=== PATIENT | male | born 1955 | race Caucasian/White ===

== ENCOUNTER 2019-09-13 10:31 | Outpatient (CLI) | payer MEDICARE, SELFPAY ==
--- NOTE | ~2019-09-13 | MR_ITS ---
EXAMINATION: MR lumbar spine wo con EXAM DATE: 09/13/2019 11:36 INDICATION: Bilateral leg pain, low back pain. TECHNIQUE: Multi-sequential, multiplanar MR images of the lumbar spine were obtained without contrast . Sagittal T1, T2, T2 fat saturation images. Axial T2 weighted images. Comparison is made to prior examination from 01/13/2019. FINDINGS: Mild disc disease at L3-4, moderate at the other lumbar levels. There is 3 mm retrolisthesi s L2 on L3. There is 4 mm retrolisthesis L5 on S1. The conus medullaris terminates at the L1/2 level and has normal signal intensity and morphology. Mild diffuse loss of vertebral body heights. Small e ndplate Schmorl's nodes. Paraspinal soft tissue is unremarkable. Level by level evaluation: T12-L1: Small right central protrusion. Facet arthropathy: Mild. Neural foraminal stenosis: No stenosis. Central canal stenosis: No stenosis. L1-L2: There is a mild diffuse disc bulge. Facet arthropathy: Mild. Neural foraminal stenosis: No stenosis. Central canal stenosis: No stenosis. L2-L3: There is a mild to moderate diffuse disc bulge. Facet arthropathy: Mild to moderate. Neural foraminal stenosis: Mild bilateral. Central canal stenosis: Mild. L3-L4: There is a mild diffuse disc bulge. Facet arthropathy: Mild to moderate. Neural foraminal stenosis: Mild to moderate left, mild right. Central canal stenosis: Mild. L4-L5: There is a mild to moderate diffuse disc bulge. Facet arthropathy: Mild to moderate. Neural foraminal stenosis: Mild to moderate bilateral. Central canal stenosis: Mild. L5-S1: There is a mild to moderate diffuse disc bulge. Facet arthropathy: Mild. Neural foraminal stenosis: Mild right. Central canal stenosis: Mild. Difficult to appreciate significant interval change in these findings compared to 2019. IMPRESSION: 1. Overall moderate lumbar spondylosis unchanged. Reviewed, dictated and finalized at location A.
== END 2019-09-13 10:32 | disposition home or self-care (01) ==
PROVIDERS: PCP Family Medicine; Visit Provider Nurse Practitioner Family
DX: M47.897 Other spondylosis, lumbosacral region (principal); M47.816 Spondylosis without myelopathy or radiculopathy, lumbar region
CPT/HCPCS: 72148

== ENCOUNTER 2020-09-24 17:09 | Emergency (ER) | payer MEDICARE, SELFPAY ==
--- NOTE | ~2020-09-24 | CT_ITS ---
EXAMINATION: CT brain wo con DATE: 09/24/2020 21:04 INDICATION: Dizziness TECHNIQUE: Computed tomography (CT) of the head was performed without intravenous contrast. The dose- length product was 605.33 mGy-cm. Automated exposure control and iterative reconstruction technique w ere employed. COMPARISON: MRI dated 08/31/2018 FINDINGS: Mild generalized atrophy. There are scattered mild periventricular and subcortical white ma tter changes, most likely related to small vessel ischemic disease (microangiopathy). No ventriculome rich or midline shift. Basilar cisterns are patent. No acute intracranial hemorrhage, infarction, mas s or mass effect. Mild mucosal thickening of the right sphenoid sinus. Mastoids are pneumatized. No d epressed skull fractures. Midline sagittal images are unremarkable. IMPRESSION: 1. No acute intracranial abnormality. 2: Chronic age-related findings. Reviewed, dictated and finalized at location A.
[2020-09-24 18:21] VITALS: BP 144/84; PULSE 63; RESP 15; TEMP 36.3; O2SAT 98
--- NOTE | 2020-09-24 18:30 | ECG_ITS ---
Measurements Intervals Ashley Rate: 55 P: 34 AL: 172 QRS: 3 QRSD: 96 T: 30 QT: 443 QTc: 424 Interpretive Statements SINUS BRADYCARDIA BORDERLINE ECG Electronically Signed On 09-25-2020 6:55:31 CDT by Michael Aguayo D.O.
[2020-09-24 18:40] LABS: Basophils Absolute Auto 0.1 K/mm3 (0.0-0.1); Basophils Percent Auto 0.5 % (0.2-1.2); Eosinophils Absolute Auto 0.2 K/mm3 (0-0.3); Hematocrit 45.3 % (42.0-52.0); Hemoglobin 15.6 g/dL (14.0-18.0); Immature Granulocyte Absolute 0.05 K/mm3 (0.00-0.031); Immature Granulocyte Percent A 0.4 % (0-0.5); Lymphocytes Percent Auto 12.2 % (18.3-44.2); Mean Corpuscular HGB Conc 34.4 g/dl (32-36); Mean Corpuscular Hemoglobin 29.4 pg (26-34); Mean Corpuscular Volume 85.5 fl (80-100); Mean Platelet Volume 9.1 fl (7.4-10.4); Monocytes Absolute Auto 0.7 K/mm3 (0.1-0.6); Monocytes Percent Auto 6.3 % (2.6-8.5); Neutrophils Percent Auto 78.6 % (45.5-73.1); Platelet Count Result 213 k/mm3 (150-375); Red Cell Distribution Width 13.1 % (11.5-14.5); White Blood Count 11.5 K/mm3 (4.5-10.0)
[2020-09-24 18:51] LABS: Alanine Aminotransferase 43 U/L (4-50); Alkaline Phosphatase 65 U/L (38-126); Anion Gap 8 mmol/L (8-16); Aspartate Amino Transferase 39 U/L (17-59); Bilirubin,Total 0.7 mg/dL (0.2-1.3); Blood Urea Nitrogen 17 mg/dL (9-20); Calcium 9.2 mg/dL (8.4-10.2); Carbon Dioxide 27 mmol/L (22-30); Chloride 106 mmol/L (98-107); Estimated CRCL calculation 75 ml/min; Estimated Glomerular Filt Rate > 60; Glucose 104 mg/dL (75-110); Potassium 3.6 mmol/L (3.4-5.0); Sodium 141 mmol/L (137-145)
--- NOTE | 2020-09-24 20:52 | ED.DIZZY ---
HPI - Dizziness General Chief Complaint: Dizziness Stated Complaint: Dizzy/Vomiting Time Seen by Provider: 09/24/20 20:38 Source: patient Mode of arrival: ambulatory Limitations: no limitations History of Present Illness HPI Narrative: Patient is a 65-year-old male sent here by his PCP after having an episode of lightheadedness accompanied by nausea that lasted for approximately 45 minutes to an hour and now resolved. Patient states that he was working outside and possibly just got dehydrated because it was hot outside. states that his blood pressure at the clinic was in the 160s over 110s. Patient currently has no complaints at this time, states that he is feeling better and ready to go home. Denies any headache, speech or visual disturbance, chest pain, shortness of breath, abdominal pain, nausea, vomiting, diarrhea, fever or chills. Related Data Home Medications Medication Instructions Recorded Confirmed aspirin 325 mg tablet 325 mg PO DAILY 06/23/19 09/24/20 levothyroxine 150 mcg tablet 150 mcg PO DAILY tablet 09/24/20 09/24/20 metoprolol succinate 25 mg 25 mg PO DAILY tablet 09/24/20 09/24/20 tablet,extended release 24 hr sertraline 25 mg tablet 25 mg PO DAILY tablet 09/24/20 09/24/20 simvastatin 10 mg tablet 10 mg PO QHS tablet 09/24/20 09/24/20 Allergies Allergy/AdvReac Type Severity Reaction Status Date / Time WASP STINGS Allergy Severe SWELLING Uncoded 09/24/20 16:33 AND ITCHING Review of Systems Review of Systems: All systems reviewed & are unremarkable except as noted in HPI and below Constitutional: Constitutional: Denies body ache(s), Denies chills, Denies excessive sweating, Denies fatigue, Denies fever(s), Denies headache(s), Denies lethargy, Denies malaise, Denies weakness and Denies weight loss Eyes: Eyes: Denies blurry vision, Denies change in vision and Denies loss of vision ENT: Denies dizziness, Denies ear discharge, Denies headache(s), Denies lip swelling, Denies epistaxis, Denies nasal congestion, Denies neck pain, Denies throat swelling and Denies tongue swelling Cardiovascular: Cardiovascular: Denies chest pain, Denies chest pain at rest, Denies chest pain with activity, Denies diaphoresis, Denies rapid heart rate, Denies edema, Denies irregular heart rhythm, Denies lightheadedness, Denies palpitations, Denies dyspnea and Denies dyspnea on exertion Respiratory: Respiratory: Denies chest congestion, Denies cough, Denies hemoptysis, Denies dyspnea and Denies dyspnea on exertion Gastrointestinal: Gastrointestinal: Denies abdominal pain, Denies melena, Denies hematochezia, Denies diarrhea, Denies vomiting and Denies hematemesis Musculoskeletal: Musculoskeletal: Denies abnormal gait, Denies deformity, Denies joint swelling, Denies limited range of motion, Denies neck pain and Denies numbness Neurologic: Denies Abnormal speech present, Denies abnormal gait, Denies confusion, Denies headache(s), Denies focal weakness, Denies loss of vision, Denies numbness, Denies Other visual disturbances, Denies Sensory deficit (Neuro) and Denies weakness Psychiatric: Psychiatric: Denies confusion, Denies depression, Denies auditory hallucinations, Denies homicidal ideation and Denies suicidal ideation Endocrine: Endocrine: Denies cold intolerance, Denies excessive sweating, Denies fatigue, Denies heat intolerance and Denies palpitations Hematologic/Lymphatic: Hematologic/Lymphatic: Denies easy bleeding and Denies easy bruising Allergic/Immunologic: Allergic/Immunologic: Denies lip swelling, Denies throat swelling and Denies tongue swelling PMFSH Past Medical History Medical History Benign prostatic hyperplasia Chronic obstructive pulmonary disease, unspecified DDD (degenerative disc disease), lumbar Dyslipidemia Esophageal dilatation 2018 Essential (primary) hypertension Gastro-esophageal reflux disease without esophagitis Hypothyroidism, uns
[2020-09-24] MEDS: SODIUM CHLORIDE 0.9% IV 1,000 ML 999 ML IV CONT (20:54)
[2020-09-24 21:01] VITALS: BP 152/76; PULSE 98; RESP 17; O2SAT 100
[2020-09-24 21:53] VITALS: BP 156/96; PULSE 68; RESP 17; O2SAT 97
[2020-09-24 22:10] LABS: Creatine Kinase 122 U/L (55-170)
[2020-09-24 22:23] LABS: Troponin I < 0.012 ng/mL (0.000-0.034)
[2020-09-24 22:47] VITALS: BP 160/90; PULSE 88; RESP 20; O2SAT 99
== END 2020-09-24 22:50 | disposition home or self-care (01) ==
PROVIDERS: Emergency Medicine; Emergency Provider Emergency Medicine; PCP Family Medicine
DX: R42 Dizziness and giddiness (principal); I10 Essential (primary) hypertension; N40.0 Benign prostatic hyperplasia without lower urinary tract symptoms; F01.50 Vascular dementia, unspecified severity, without behavioral disturbance, psychotic disturbance, mood disturbance, and anxiety; J44.9 Chronic obstructive pulmonary disease, unspecified; E78.5 Hyperlipidemia, unspecified; E03.9 Hypothyroidism, unspecified; K21.9 Gastro-esophageal reflux disease without esophagitis; Z79.82 Long term (current) use of aspirin; F17.290 Nicotine dependence, other tobacco product, uncomplicated; R00.1 Bradycardia, unspecified
CPT/HCPCS: 36415; 70450; 80053; 82550; 84484; 85025; 93005; 96360; 99284; J7030

== ENCOUNTER 2020-10-22 15:12 | Emergency (ER) | payer MEDICARE, SELFPAY ==
--- NOTE | ~2020-10-22 | XR_ITS ---
EXAMINATION: XR knee RT min 4V DATE: 10/22/2020 15:46 INDICATION: Right knee pain. TECHNIQUE: 4 views of right knee were obtained. COMPARISON: None. FINDINGS: Bone alignment is normal. No fracture. There is mild tricompartmental osteoarthritis charac terized by tiny marginal osteophytes. No knee joint effusion. IMPRESSION: 1. Mild right knee osteoarthritis. Reviewed, dictated and finalized at location A.
--- NOTE | 2020-10-22 15:19 | ED.LOWEXIN ---
HPI - Extremity Injury (Lower) General Chief Complaint: Extremity Injury, Lower Stated Complaint: rt foot/leg injury Source: patient and RN notes reviewed Mode of arrival: ambulatory History of Present Illness HPI Narrative: This is a 65-year-old male that presented to urgent care that notes that his left knee gave out while getting out of his automobile. Patient does have a history of spinal abnormalities. Patient describes his pain as a sharp throbbing pain to his left leg starting from his hip to his foot. The patient denies SOB, CP, palpitation, extremity numbness, lightheadedness, dizziness, constipation, diarrhea, chills, or fever. Patient positive for straight leg test. No tenderness noted to his back no abnormalities in curvature or limited range of motion to his lower back. Patient does have full range of motion with pain to his right leg no edema or erythema noted. Patient requesting x-ray of his right knee. MD complaint: leg injury (right) Related Data Home Medications Medication Instructions Recorded Confirmed aspirin 325 mg tablet 325 mg PO DAILY 06/23/19 09/26/20 levothyroxine 150 mcg tablet 150 mcg PO DAILY tablet 09/24/20 09/26/20 metoprolol succinate 25 mg 25 mg PO DAILY tablet 09/24/20 09/26/20 tablet,extended release 24 hr simvastatin 10 mg tablet 10 mg PO QHS tablet 09/24/20 09/26/20 Allergies Allergy/AdvReac Type Severity Reaction Status Date / Time WASP STINGS Allergy Severe SWELLING Uncoded 09/26/20 09:37 AND ITCHING Review of Systems Review of Systems: Narrative: A 14 organ system Review of Systems was performed and pertinent positives included in the HPI, otherwise remaining ROS is negative. [facility] Past Medical History Medical History Benign prostatic hyperplasia Chronic obstructive pulmonary disease, unspecified DDD (degenerative disc disease), lumbar Dyslipidemia Esophageal dilatation 2018 Essential (primary) hypertension Gastro-esophageal reflux disease without esophagitis Hypothyroidism, unspecified Low back pain at multiple sites Nicotine use disorder Smoking greater than 40 pack years Tonsillectomy planned 1959 Vascular dementia without behavioral disturbance Surgical History Surgical History H/O hernia repair 1989 Hx of tonsillectomy (Unknown) Social History Social History Smoking packs per day: 2 Smoking cigarettes per day: 40.0 Years smoked: 50 Smoking pack-years: 100.00 Smoking status: Heavy tobacco smoker Second hand tobacco smoke exposure: No Alcohol intake: current Substance use: never Additional occupation/education comments: disabled Gender identity (if verbalized by the patient): Male Exam Narrative: Exam Narrative: GENERAL: This is a well-nourished, well-developed patient, in no apparent distress. HEAD: normocephalic, atraumatic. EYES: PERRL. Sclera clear/white. Vision is grossly intact. EARS: External ears normal, auditory canals clear and without drainage, TMs normal without perforation. Hearing grossly intact. NOSE: External nose normal with no obvious nasal discharge, nares without redness, no rhinorrhea. THROAT: Mucous membranes moist, posterior pharynx clear. NECK: Neck supple, non-tender without lymphadenopathy, masses or thyromegaly. CARDIOVASCULAR: Regular rate and rhythm without murmurs, gallops, or rubs. RESPIRATORY: Clear to auscultation. Breath sounds equal bilaterally. No wheezes, rales, or rhonchi. GASTROINTESTINAL: Abdomen soft, non-tender, nondistended. Bowel sounds are active. No hepato-splenomegaly, or palpable masses. No guarding. SKIN: warm, intact with no suspicious lesions or rash, good texture and turgor. NEURO: awake, alert, and oriented to person, place and time. There were no obvious focal neurologic abnormalities. Steady gait EXTREMIT
[2020-10-22 15:20] VITALS: BP 131/79; PULSE 83; RESP 20; TEMP 36.5; O2SAT 98
== END 2020-10-22 15:59 | disposition home or self-care (01) ==
PROVIDERS: Emergency Provider Nurse Practitioner; PCP Family Medicine
DX: S83.8X2A Sprain of other specified parts of left knee, initial encounter (principal); S86.812A Strain of other muscle(s) and tendon(s) at lower leg level, left leg, initial encounter; W19.XXXA Unspecified fall, initial encounter; R29.90 Unspecified symptoms and signs involving the nervous system; M51.36 Other intervertebral disc degeneration, lumbar region; F17.210 Nicotine dependence, cigarettes, uncomplicated; J44.9 Chronic obstructive pulmonary disease, unspecified; E78.5 Hyperlipidemia, unspecified; I10 Essential (primary) hypertension; K21.9 Gastro-esophageal reflux disease without esophagitis; E03.9 Hypothyroidism, unspecified
CPT/HCPCS: 73564; 99213; G0463

== ENCOUNTER 2020-11-30 17:30 | Emergency (ER) | payer MEDICARE, SELFPAY ==
[2020-11-30 17:34] VITALS: BP 122/80; PULSE 82; RESP 16; TEMP 36.7; O2SAT 97
--- NOTE | 2020-11-30 17:35 | ED.SKABFB ---
HPI - Skin/Abscess/Foreign Bdy General Chief complaint: Wound/Laceration Stated complaint: puncture wounds to hands Source: patient and RN notes reviewed Limitations: no limitations History of Present Illness HPI narrative: The patient, a smoker/drinker who is on several medications, presents with puncture wound. Patient states he was fishing today and sustained a few small puncture wounds probably from a catfish; he is uncertain of his tetanus status. Patient is concerned he might get fin poisoning ; no redness,, significant swelling, pain, discharge from the affected site on his left thumb, right finger. Related Data Home Medications Medication Instructions Recorded Confirmed aspirin 325 mg tablet 325 mg PO DAILY 06/23/19 09/26/20 metoprolol succinate 25 mg 25 mg PO DAILY tablet 09/24/20 09/26/20 tablet,extended release 24 hr Allergies Allergy/AdvReac Type Severity Reaction Status Date / Time WASP STINGS Allergy Severe SWELLING Uncoded 09/26/20 09:37 AND ITCHING Review of Systems Review of Systems: General/Constitutional: No weight loss,fever Eyes: N0: Redness,discharge Ears/Nose/Throat: No: Epistaxis,ear discharge Respiratory: Denies: Hemoptysis Gastrointestinal: No Vomiting, Bleeding-rectal Skin: No Lumps, eruption Neurologic: No Focal Weakness,Sz Hematologic: Denies: Petechiae/Purpura Psychiatric: No: Suicida ideationl All Other Systems: Reviewed and Negative [facility] Past Medical History Medical History Benign prostatic hyperplasia Chronic obstructive pulmonary disease, unspecified DDD (degenerative disc disease), lumbar Dyslipidemia Esophageal dilatation 2018 Essential (primary) hypertension Gastro-esophageal reflux disease without esophagitis Hypothyroidism, unspecified Low back pain at multiple sites Nicotine use disorder Smoking greater than 40 pack years Tonsillectomy planned 1959 Vascular dementia without behavioral disturbance Surgical History Surgical History H/O hernia repair 1989 Hx of tonsillectomy (Unknown) Social History Social History Smoking packs per day: 2 Smoking cigarettes per day: 40.0 Years smoked: 50 Smoking pack-years: 100.00 Smoking status: Heavy tobacco smoker Second hand tobacco smoke exposure: No Alcohol intake: current Substance use: never Additional occupation/education comments: disabled Gender identity (if verbalized by the patient): Male Comments At time of signature, agree with nursing past medical, surgical, social and family history. There is no relevant family history pertinent to the presenting complaint Exam Narrative: General Appearance: Well appearing, Conjunctiva clear Ears: External ear normal, Auditory canal normal Nose: Normal nose, Nares clear Mouth/Throat: Normal appearing, Normal lips, Supple Respiratory: Airway patent, No respiratory distress Skin: Warm, Dry, Normal color; small/minute pinprick injuries of the left thumb and right ring finger not Ms-Hands: Normal strength (mostly intact, limited flexion/extension by pain), Tenderness (only puncture sites, withoutd decreased ROM), no swelling Neurological: A&O x3, , Normal affect Course Vital Signs Vital signs: Vital Signs Temperature 98.1 F 11/30/20 17:34 Pulse Rate 82 11/30/20 17:34 Respiratory Rate 16 11/30/20 17:34 Blood Pressure 122/80 11/30/20 17:34 Pulse Oximetry 97 11/30/20 17:34 Temperature 98.1 F 11/30/20 17:34 Pulse Rate 82 11/30/20 17:34 Respiratory Rate 16 11/30/20 17:34 Blood Pressure 122/80 11/30/20 17:34 Pulse Oximetry 97 11/30/20 17:34 Discharge Plan Discharge Clinical Impression: Puncture wound Patient Disposition: Home, Self-Care Condition: Stable Instructions: Puncture Wound (ED) Prescriptions:
[2020-11-30] MEDS: TETANUS,DIPHTHERIA,AC PERTUSSIS ADULT (0.5 ML) BOOSTRIX IM (17:45)
== END 2020-11-30 17:55 | disposition home or self-care (01) ==
PROVIDERS: Emergency Provider Emergency Medicine; PCP Family Medicine
DX: S61.032A Puncture wound without foreign body of left thumb without damage to nail, initial encounter (principal); S61.234A Puncture wound without foreign body of right ring finger without damage to nail, initial encounter; X58.XXXA Exposure to other specified factors, initial encounter; Z23 Encounter for immunization; N40.0 Benign prostatic hyperplasia without lower urinary tract symptoms; E78.5 Hyperlipidemia, unspecified; I10 Essential (primary) hypertension; K21.9 Gastro-esophageal reflux disease without esophagitis; E03.9 Hypothyroidism, unspecified; F01.50 Vascular dementia, unspecified severity, without behavioral disturbance, psychotic disturbance, mood disturbance, and anxiety
CPT/HCPCS: 90471; 90715; 99213; G0463

== ENCOUNTER 2021-01-23 08:09 | Outpatient (CLI) | payer MEDICARE, SELFPAY ==
--- NOTE | ~2021-01-23 | CT_ITS ---
EXAMINATION: CT lung screening DATE: 01/23/2021 08:31 INDICATION: Screening for malignant neoplasm TECHNIQUE: Computed tomography (CT) of the chest was performed without intravenous contrast. The dose -length product was 170.19 mGy-cm. Automated exposure control and iterative reconstruction technique were employed. COMPARISON: Comparison to multiple prior studies sequentially, with oldest reviewed study dated 04/03. FINDINGS: There is a 10 mm right upper lobe nodule unchanged from 05/29/2017, image 30. This lesion is relatively definite low density with areas of macroscopic fat, most likely benign hamartoma. No endo bronchial lesions. There is a 4 mm subsolid nodule right middle lobe, image 85. Calcified granuloma l eft lower lung. Mild emphysema. No thoracic lymphadenopathy. Heart size is normal. No significant ple ural or pericardial effusion. There is mild left adrenal thickening unchanged, likely due to underlyi ng benign adenoma. Mild thoracic spondylosis. IMPRESSION: 1. Lung-RADS category 2: Benign appearance or behavior. Continue annual screening with noncontrast lo w-dose chest CT in 12 months. Reviewed, dictated and finalized at location A. IMPRESSION: 1. Lung-RADS category 2: Benign appearance or behavior. Continue annual screeni ng with noncontrast low-dose chest CT in 12 months.
== END 2021-01-23 08:10 | disposition home or self-care (01) ==
LOC: ANHIMG 08:12
PROVIDERS: PCP Family Medicine; Visit Provider Family Medicine
DX: Z12.2 Encounter for screening for malignant neoplasm of respiratory organs (principal); F17.210 Nicotine dependence, cigarettes, uncomplicated
CPT/HCPCS: 71271

== ENCOUNTER 2021-03-05 15:07 | Emergency (ER) | payer MEDICARE, SELFPAY ==
--- NOTE | ~2021-03-05 | XR_ITS ---
EXAMINATION: XR chest 2V DATE: 03/05/2021 15:45 INDICATION: Cough TECHNIQUE: PA and lateral views of the chest are obtained. COMPARISON: None available FINDINGS: The lungs are free of acute opacities. There is a stable nodule of the right upper lobe. T here is a small right pleural effusion. The cardiomediastinal silhouette is normal. There is moderate thoracic spondylosis. IMPRESSION: 1. Small right pleural effusion. Reviewed, dictated and finalized at location B.
[2021-03-05 15:13] VITALS: BP 137/81; PULSE 84; RESP 18; TEMP 36.8; O2SAT 98
--- NOTE | 2021-03-05 15:37 | ED.URI ---
HPI - URI/Sore Throat General Chief Complaint: Upper Respiratory Infection Stated Complaint: cough/sob Time Seen by Provider: 03/05/21 15:26 Source: patient and RN notes reviewed Mode of arrival: ambulatory Limitations: no limitations History of Present Illness HPI Narrative: Patient presents today with a 1 week history of cough that is occasionally productive, rhinorrhea, mild nasal congestion, shortness of breath with exertion. Denies sore throat, ear pain, fever. He has been vaccinated against influenza and Covid team. Smokes 1.5 packs/day. History of COPD, does not use any medications for it at home. He has tried no [id number] treatment prior to arrival. MD elicited complaint: cough and nasal congestion Related Data Home Medications Medication Instructions Recorded Confirmed aspirin 325 mg tablet 325 mg PO DAILY 06/23/19 12/26/20 metoprolol succinate 25 mg 25 mg PO DAILY tablet 09/24/20 12/26/20 tablet,extended release 24 hr simvastatin 10 mg tablet 10 mg PO QHS tablet 12/26/20 12/26/20 Allergies Allergy/AdvReac Type Severity Reaction Status Date / Time WASP STINGS Allergy Severe SWELLING Uncoded 12/26/20 13:23 AND ITCHING Review of Systems Review of Systems: CONSTITUTIONAL: Denies body aches, fever, chills, or sweats. EYES: Denies visual changes, redness, or discharge. ENT: Denies sore throat, or otalgia.+ Rhinorrhea, congestion CARDIOVASCULAR: Denies chest pain, palpitations, or edema. RESPIRATORY:+ Cough, shortness of breath with exertion GASTROINTESTINAL: Denies abdominal pain, nausea, vomiting, or diarrhea. GENITOURINARY: Denies dysuria or hematuria. SKIN: Denies rash, itching, or wounds. MUSCULOSKELETAL: Denies back pain, joint pain, or myalgia. NEUROLOGIC: Denies headache, numbness, tingling, or weakness. PSYCH: Denies depression or anxiety. [facility], [facility] Past Medical History Medical History Benign prostatic hyperplasia Chronic obstructive pulmonary disease, unspecified DDD (degenerative disc disease), lumbar Dyslipidemia Esophageal dilatation 2018 Essential (primary) hypertension Gastro-esophageal reflux disease without esophagitis Hypothyroidism, unspecified Low back pain at multiple sites Nicotine use disorder Smoking greater than 40 pack years Tonsillectomy planned 1959 Vascular dementia without behavioral disturbance Surgical History Surgical History H/O hernia repair 1989 Hx of tonsillectomy (Unknown) Social History Social History Smoking packs per day: 1 Smoking cigarettes per day: 20.0 Years smoked: 50 Smoking pack-years: 50.00 Smoking status: Current every day smoker Tobacco type: cigarettes Second hand tobacco smoke exposure: No Alcohol intake: current Substance use: never Additional occupation/education comments: disabled Gender identity (if verbalized by the patient): Male Comments At time of signature, I have reviewed and agree with nursing past medical, surgical, social and family history unless otherwise noted. Please see nursing chart for further information. There is no relevant family history pertinent to the presenting complaint Exam Narrative: GENERAL: Well-appearing, well-nourished, and in no acute distress. HEAD: Normocephalic, atraumatic. EYES: EOMI. No redness or drainage. Conjunctivae normal. ENT: Mucous membranes pink and moist. Nares clear. No rhinorrhea. TMs normal bilaterally. Throat mildly erythematous with small amount of postnasal drainage. Uvula midline. NECK: Normal AROM. Supple. No lymphadenopathy. CHEST: No respiratory distress. Decreased aeration throughout. HEART: Regular rate and rhythm. No murmur appreciated. Normal peripheral pulses. EXTREMITIES: Normal range of motion. No edema. SKIN: Warm, dry, no rash. Capillary refill
== END 2021-03-05 16:19 | disposition home or self-care (01) ==
PROVIDERS: Emergency Provider Nurse Practitioner; PCP Family Medicine
DX: J44.1 Chronic obstructive pulmonary disease with (acute) exacerbation (principal); J06.9 Acute upper respiratory infection, unspecified; F17.210 Nicotine dependence, cigarettes, uncomplicated; J44.9 Chronic obstructive pulmonary disease, unspecified; M51.36 Other intervertebral disc degeneration, lumbar region; E78.5 Hyperlipidemia, unspecified; I10 Essential (primary) hypertension; K21.9 Gastro-esophageal reflux disease without esophagitis; E03.9 Hypothyroidism, unspecified; F01.50 Vascular dementia, unspecified severity, without behavioral disturbance, psychotic disturbance, mood disturbance, and anxiety
CPT/HCPCS: 71046; 99213; G0463

== ENCOUNTER 2021-06-12 14:31 | Outpatient (CLI) | payer MEDICARE, SELFPAY ==
--- NOTE | 2021-06-12 17:04 | WPDPFTINT ---
PFT Procedure Performed PFT Procedure Performed Spirometry with Pre/Post Bronchodilator Plethysmography (Lung Vol) Diffusing Cap (DLCO) Flow Vol Loop PFT Interpretation This is a pulmonary function test with pre and post-bronchodilator spirometry, plethysmography and diffusing capacity. The test was performed and results interpreted in accordance with the 2019 and 2005 ATS/ERS Task Force guidelines respectively using the Global Lung Function Initiative-2012 reference equations. Patient demonstrated good effort and cooperation. Reproducibility criteria were met. The quality of the pre bronchodilator spirometry maneuver was Grade A and post bronchodilator spirometry maneuver was Grade A. Findings: Spirometry: There is decreased maximal expiratory airflow at all lung volumes with concave expiratory flow tracing. The pre bronchodilator FVC is 2.89 L, 65% predicted. The pre bronchodilator FEV1 is 1.93 L, 57% predicted. The pre bronchodilator FEV1: FVC ratio is 67%. The post bronchodilator FVC is 3.29 L, representing a 14% increase. The post bronchodilator FEV1 is 2.36 L, representing a 22% increase. The post bronchodilator FEV1: FVC ratio 72%. Plethysmography: The total lung capacity is 7.46 L, 106% predicted. The functional residual capacity is 3.73 L, 101% predicted. The residual volume is 3.67 L, 156% predicted. Diffusing capacity: The diffusing capacity unadjusted for hemoglobin is 20.5, 75% predicted. The diffusing capacity adjusted for alveolar volume is 3.80, 93% predicted. Impression: There is a moderately severe obstructive abnormality with significant improvement after inhaling a single dose of albuterol. The increase in residual volume is consistent with air trapping from an obstructive abnormality. The diffusing capacity is normal. There are no prior studies for comparison
== END 2021-06-12 14:32 | disposition home or self-care (01) ==
PROVIDERS: PCP Family Medicine; Visit Provider Family Medicine
DX: J44.9 Chronic obstructive pulmonary disease, unspecified (principal)
CPT/HCPCS: 94060; 94726; 94729

== ENCOUNTER 2021-08-07 13:13 | Emergency (ER) | payer MEDICARE, SELFPAY ==
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
[2021-08-07 13:18] VITALS: BP 133/88; PULSE 81; RESP 20; TEMP 37.1; O2SAT 98
[2021-08-07 13:22] VITALS: BP 133/88; PULSE 81; RESP 20; TEMP 37.1; O2SAT 98
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
== END 2021-08-07 13:59 | disposition home or self-care (01) ==
PROVIDERS: Emergency Provider Registered Nurse; PCP Family Medicine
DX: S63.502A Unspecified sprain of left wrist, initial encounter (principal); V43.52XA Car driver injured in collision with other type car in traffic accident, initial encounter; F17.210 Nicotine dependence, cigarettes, uncomplicated; N40.0 Benign prostatic hyperplasia without lower urinary tract symptoms; J44.9 Chronic obstructive pulmonary disease, unspecified; M47.816 Spondylosis without myelopathy or radiculopathy, lumbar region; E78.5 Hyperlipidemia, unspecified; I10 Essential (primary) hypertension; K21.9 Gastro-esophageal reflux disease without esophagitis; E03.9 Hypothyroidism, unspecified; F01.50 Vascular dementia, unspecified severity, without behavioral disturbance, psychotic disturbance, mood disturbance, and anxiety; Z86.16 Personal history of COVID-19; Z79.82 Long term (current) use of aspirin
CPT/HCPCS: 73110; 99213; G0463

== ENCOUNTER 2021-08-20 17:10 | Emergency (ER) | payer MEDICARE, SELFPAY ==
--- NOTE | ~2021-08-20 | CT_ITS ---
EXAMINATION: CT brain wo con INDICATION: Altered mental status COMPARISON: 09/24/2020 TECHNIQUE: Standard unenhanced head CT. The dose-length product (DLP) was 605.33 mGy-cm. The mA was a djusted according to patient size. Iterative reconstruction technique was employed. FINDINGS: There is no intracranial hemorrhage, acute infarction, or abnormal mass lesion. The ventric les are normal. There is no abnormal mass effect or midline shift. The matthew-white matter differentiat ion is normal. The basal cisterns are patent. The orbits are normal. The paranasal sinuses, mastoids and calvarium are normal. IMPRESSION: 1. No acute intracranial abnormality. Reviewed, dictated and finalized at location F.
--- NOTE | ~2021-08-20 | XR_ITS ---
EXAMINATION: XR chest 2V DATE: 08/20/2021 17:35 INDICATION: Transient alteration of awareness TECHNIQUE: AP and lateral views of the chest are obtained. COMPARISON: 03/05/2021 FINDINGS: The lungs are free of acute opacities. There is a stable nodule of the right upper lobe. Th ere is no pleural effusion or pneumothorax. The cardiomediastinal silhouette is normal. There is mode rate thoracic spondylosis. IMPRESSION: 1. No acute cardiopulmonary abnormality. Reviewed, dictated and finalized at location F.
[2021-08-20 17:12] VITALS: BP 162/99; PULSE 87; RESP 18; TEMP 36.6; O2SAT 95
--- NOTE | 2021-08-20 17:16 | ECG_ITS ---
Measurements Intervals [place] Rate: 79 P: 50 NE: 160 QRS: -3 QRSD: 90 T: 30 QT: 367 QTc: 421 Interpretive Statements SINUS RHYTHM NORMAL ECG COMPARED TO ECG 09/24/2020 18:39:16 HEART RATE HAS INCREASED Electronically Signed On 08-20-2021 18:16:32 CDT by León Guillermo M.D.
[2021-08-20 17:28] LABS: Basophils Absolute Auto 0.1 K/mm3 (0.0-0.1); Basophils Percent Auto 1.3 % (0.2-1.2); Eosinophils Absolute Auto 0.4 K/mm3 (0-0.3); Eosinophils Percent Auto 5.6 % (0-4.4); Hematocrit 44.8 % (42.0-52.0); Hemoglobin 15.2 g/dL (14.0-18.0); Immature Granulocyte Absolute 0.02 K/mm3 (0.00-0.031); Immature Granulocyte Percent A 0.3 % (0-0.5); Lymphocytes Absolute Auto 2.26 K/mm3 (0.9-3.2); Lymphocytes Percent Auto 29.2 % (18.3-44.2); Mean Corpuscular HGB Conc 33.9 g/dl (32-36); Mean Corpuscular Hemoglobin 30.1 pg (26-34); Mean Corpuscular Volume 88.7 fl (80-100); Mean Platelet Volume 9.1 fl (7.4-10.4); Monocytes Absolute Auto 0.9 K/mm3 (0.1-0.6); Monocytes Percent Auto 11.5 % (2.6-8.5); Neutrophils Percent Auto 52.1 % (45.5-73.1); Platelet Count Result 215 k/mm3 (150-375); Red Blood Count 5.05 M/mm3 (4.6-6.20); Red Cell Distribution Width 13.6 % (11.5-14.5); White Blood Count 7.7 K/mm3 (4.5-10.0)
[2021-08-20 17:39] LABS: INR 0.9; Prothrombin Time 11.9 Seconds (11.1-14.7)
[2021-08-20 17:40] LABS: Alanine Aminotransferase 36 U/L (4-50); Albumin Level 4.1 g/dL (3.5-5.1); Alkaline Phosphatase 75 U/L (38-126); Anion Gap 6 mmol/L (8-16); Aspartate Amino Transferase 34 U/L (17-59); Bilirubin,Total 0.3 mg/dL (0.2-1.3); Blood Urea Nitrogen 21 mg/dL (9-20); Calcium 8.7 mg/dL (8.4-10.2); Carbon Dioxide 27 mmol/L (22-30); Chloride 108 mmol/L (98-107); Estimated CRCL calculation 63 ml/min; Estimated Glomerular Filt Rate > 60; Glucose 100 mg/dL (65-110); Lipase 44 U/L (23-300); Partial Thromboplastin Time 33.1 SECONDS (22.3-36.8); Potassium 3.8 mmol/L (3.4-5.0); Sodium 141 mmol/L (137-145)
[2021-08-20 17:47] LABS: Alveolar/Arterial O2 Gradient 18.9 mmHg; Base Excess ABG 2.2 mEq/l (+/-2.0); Carboxyhemoglobin 3.1 % THb (0-2.0); Device ROOM AIR; Fractional Inspired Oxygen 21 %; HCO3 ABG 26.7 mEq/l (22.0-26.0); Methemoglobin ABG 0.2 %THb (0-1.5); Modified Allen's Test Pass; Oxygen Content ABG 20.4 %vol (16.0-22.0); Oxygen Saturation ABG 96.3 % (95.0-100.0); PCO2 ABG 41.1 mmHg (35.0-45.0); PO2 ABG 81.6 mmHg (80.0-100.0); PO2 FiO2 Ratio Arterial Blood 3.89 %; Reduced Hemoglobin 3.7 %THb (0-5.0); Site Drawn LEFT RADIAL; Total Hemoglobin 15.6 g/dL (12.0-18.0)
[2021-08-20 17:52] LABS: Troponin I < 0.012 ng/mL (0.000-0.034)
--- NOTE | 2021-08-20 17:52 | ED.AMS ---
HPI - Altered Mental Status General Chief Complaint: Altered Mental Status Stated Complaint: confused Time Seen by Provider: 08/20/21 17:25 Source: patient and family Mode of arrival: ambulatory Limitations: no limitations History of Present Illness HPI narrative: This is a 66-year-old male that presents to the emergency department with his for worsening confusion noted over the last couple of weeks. Does report that he has baseline history of dementia. Reports he has been more confused than his usual though. Reports he has been more forgetful. He has a flip phone and tried to answer without opening his phone a couple of days ago. He has had a couple of episodes of food getting stuck. He has had an esophageal dilation in the past with Dr. Bhagat. He is also had a syncopal episode recently. Patient has no current complaints. Denies fever, chest pain, shortness of breath, abdominal pain, or dysuria. Related Data Home Medications Medication Instructions Recorded Confirmed aspirin 325 mg tablet 325 mg PO DAILY 06/23/19 08/12/21 mirabegron 25 mg tablet,extended 25 mg PO DAILY 05/05/21 08/12/21 release 24 hr tamsulosin 0.4 mg capsule 0.4 mg PO DAILY cap 07/30/21 08/12/21 Allergies Allergy/AdvReac Type Severity Reaction Status Date / Time WASP STINGS Allergy Severe SWELLING Uncoded 08/12/21 13:08 AND ITCHING Review of Systems Review of Systems: CONSTITUTIONAL: Denies fever CARDIOVASCULAR: Denies chest pain or edema. RESPIRATORY: Denies cough or dyspnea. GASTROINTESTINAL: Denies abdominal pain GENITOURINARY: Denies dysuria NEUROLOGIC: Denies headache, numbness, or weakness. All systems reviewed & are unremarkable except as noted in HPI and below PMFSH Past Medical History Medical History (Updated 08/20/21 @ 20:28 by Gia Flores PA-C) Benign prostatic hyperplasia Chronic obstructive pulmonary disease, unspecified DDD (degenerative disc disease), lumbar Dyslipidemia Esophageal dilatation 2018 Essential (primary) hypertension Gastro-esophageal reflux disease without esophagitis History of COVID-19 05/2021 History of esophageal dilatation (~2019) Hypothyroidism, unspecified Low back pain at multiple sites Smoking greater than 40 pack years Tonsillectomy planned 1959 Vascular dementia without behavioral disturbance Surgical History Surgical History H/O hernia repair 1989 Hx of tonsillectomy (Unknown) Social History Social History (Updated 08/12/21 @ 13:12 by Michelle Benavidez CMA) Smoking packs per day: 1 Smoking cigarettes per day: 20.0 Years smoked: 50 Smoking pack-years: 50.00 Smoking status: Current every day smoker Tobacco type: cigarettes Second hand tobacco smoke exposure: No Alcohol intake: current Substance use: never Additional occupation/education comments: disabled Gender identity (if verbalized by the patient): Male Exam Narrative: GENERAL: Well-appearing, well-nourished, and in no acute distress. HEAD: Normocephalic, atraumatic. EYES: PERRLA and EOMI. ENT: Nares clear, no rhinorrhea or epistaxis. Mucous membranes moist. Oropharynx without tonsillar hypertrophy exudate or other lesions. Bilateral TMs pearly matthew non-bulging NECK: Supple. No adenopathy or masses. CHEST: Clear to auscultation. No respiratory distress. No wheezes rales or rhonchi HEART: Regular rate and rhythm. No murmur heard. Normal peripheral pulses. ABDOMEN: Soft, nontender, nondistended, normal active bowel sounds. EXTREMITIES: Normal range of motion. No edema. Normal DP pulses. Normal sensation SKIN: Warm, dry, no rash. NEURO: No focal deficits. Alert and oriented x3. Cranial nerves II through XII grossly intact. Normal gait PSYCH: Normal mood and affect Course Consultations Consultation #1: Spoke with patient's primary about presentation and work-up. Date: 08/20/21 Time: 20:15 Vital Signs Vital signs: Vital
[2021-08-20] MEDS: SODIUM CHLORIDE 0.9% IV 500 ML 999 ML IV CONT (19:21)
[2021-08-20 19:45] VITALS: BP 156/95; PULSE 77; RESP 18; O2SAT 96
[2021-08-20 19:55] LABS: Appearance Urine Clear (Clear); Bilirubin Urine Negative (Negative); Color Urine Yellow (Yellow); Glucose Urine UA Negative (Negative); Ketones Urine Negative (Negative); Leukocyte Esterase Ur Negative LEU/UL (Negative); Nitrate Urine Negative (Negative); Protein Urine Negative (Negative); Specific Grav Ur >= 1.030 (1.001-1.035); Urobilinogen Urine 0.2 mg/dL (<2.0); pH Urine 5.5 (5.0-9.0)
[2021-08-20 19:59] LABS: Add Urine Microscopic? YES; Blood Urine Trace-Intact (Negative)
[2021-08-20 20:30] VITALS: BP 157/85; PULSE 69; RESP 14; O2SAT 99
== END 2021-08-20 20:30 | disposition home or self-care (01) ==
PROVIDERS: Emergency Medicine; Physician Assistant; Emergency Provider Family Medicine; PCP Family Medicine
DX: R13.10 Dysphagia, unspecified (principal); F03.90 Unspecified dementia, unspecified severity, without behavioral disturbance, psychotic disturbance, mood disturbance, and anxiety; F17.210 Nicotine dependence, cigarettes, uncomplicated; J44.9 Chronic obstructive pulmonary disease, unspecified; I10 Essential (primary) hypertension; E03.9 Hypothyroidism, unspecified; Z86.16 Personal history of COVID-19; Z79.82 Long term (current) use of aspirin
CPT/HCPCS: 36415; 36600; 70450; 71046; 80053; 81001; 82375; 82805; 83050; 83690; 84484; 85025; 85610; 85730; 93005; 96360; 99284; J7040

== ENCOUNTER 2021-09-19 00:32 | Day surgery (SDC) | payer MEDICARE, SELFPAY ==
[2021-09-08 09:37] VITALS: BMI 29.2
[2021-09-19 09:37] VITALS: BP 153/96; PULSE 72; RESP 20; TEMP 36.8; O2SAT 96
[2021-09-19] MEDS: LACTATED RINGERS 1,000 ML 150 ML IV CONT (09:40)
--- NOTE | 2021-09-19 10:06 | WPDGICN ---
Assessment and Plan Assessment and plan (1) Dysphagia: Qualifiers: Dysphagia type: unspecified Qualified Code(s): R13.10 - Dysphagia, unspecified Code(s): R13.10 - Dysphagia, unspecified Status: Acute Assessment and Plan: patient complains of difficulty swallowing. He does have ongoing frequent heartburn. Currently only taking Rolaids for relief of symptoms. In the past patient has had esophageal web felt to be secondary to acid reflux. Plan is for follow-up EGD and possible dilatation. He may benefit from reinstitution of longer-term acid suppression. Further recommendations will be given after endoscopy. (2) History of colon polyps: Code(s): Z86.010 - Personal history of colonic polyps Status: Acute Assessment and Plan: Patient has a history of adenomatous colon polyps removed in the colon 2017. Plan is for surveillance colonoscopy in 2022 and interval subsequently. GI Consult Note Consult date/time: 09/19/21 10:06 HPI: Zelalem Sanchez is a 66 year old male Presents for EGD. Patient complains of difficulty swallowing. He states that solid foods will occasionally catch in the mid substernal portion of the chest. Patient has a history of intermittent heartburn. For which he takes Rolaids. Patient's past history is significant for esophageal web requiring dilatation 2018. Patient's has a history of adenomatous colon polyps removed from the colon 2017 as well. Review of Systems Review of Systems: All systems reviewed & are unremarkable except as noted in HPI and below PMFSH Past Medical History Medical History Benign prostatic hyperplasia Chronic obstructive pulmonary disease, unspecified DDD (degenerative disc disease), lumbar Dyslipidemia Esophageal dilatation 2018 Essential (primary) hypertension Gastro-esophageal reflux disease without esophagitis History of COVID-19 05/2021 History of esophageal dilatation (~2019) Hypothyroidism, unspecified Low back pain at multiple sites Smoking greater than 40 pack years Tonsillectomy planned 1959 Vascular dementia without behavioral disturbance Surgical History Surgical History H/O hernia repair 1989 Hx of tonsillectomy (Unknown) Social History Social History Smoking packs per day: 1 Smoking cigarettes per day: 20.0 Years smoked: 50 Smoking pack-years: 50.00 Tobacco type: cigarettes Second hand tobacco smoke exposure: No Alcohol intake: current Substance use: never Living arrangements: with family Additional occupation/education comments: disabled Gender identity (if verbalized by the patient): Male Spiritual care concerns: No Meds Home Medications and Allergies Home Medications Medication Instructions Recorded Confirmed Type aspirin 325 mg tablet 325 mg PO DAILY 06/23/19 09/19/21 History albuterol sulfate 90 mcg/actuation 2 puff INHALATION Q4-6H PRN #18 gm 05/05/21 09/19/21 Rx aerosol inhaler mirabegron 25 mg tablet,extended 25 mg PO DAILY 05/05/21 09/19/21 History release 24 hr finasteride 5 mg tablet 5 mg PO DAILY #90 tablet 07/01/21 09/19/21 Rx lisinopril 20 1 tablet PO DAILY #90 tablet 07/03/21 09/19/21 Rx mg-hydrochlorothiazide 25 mg tablet simvastatin 10 mg tablet 10 mg PO QHS #90 tablet 07/24/21 09/19/21 Rx tamsulosin 0.4 mg capsule 0.4 mg PO DAILY cap 07/30/21 09/19/21 History metoprolol succinate 25 mg 25 mg PO DAILY #90 tablet 08/25/21 09/19/21 Rx tablet,extended release 24 hr fluticasone 250 mcg-salmeterol 50 1 inh INHALATION BID #180 ea 09/08/21 09/19/21 Rx mcg/dose blistr powdr for inhalation levothyroxine 150 mcg tablet 150 mcg PO DAILY #90 tablet 09/08/21 09/19/21 Rx benzonatate 100 mg capsule 100 mg PO TID 09/10/21 09/19/21 History Allergies Allergy/AdvReac T
--- NOTE | 2021-09-19 10:32 | WPDANESEPPF ---
Anes - Initial Pre Proc Eval Procedure: Operation Date: 09/19/21 10:45 Proposed Procedures p Esophagogastroduodenoscopy - Trae Bhagat MD Date/Time: 09/19/21 10:32 Surgeon: Trae Bhagat MD Pre Op Diagnosis: dysphagia Patient Data Age: 66 Gender: M Height: 1.8 m Weight: 99.6 kg Last Vital Signs Temp 98.2 F 09/19/21 09:37 Pulse 72 09/19/21 09:37 Resp 20 09/19/21 09:37 BP 153/96 H 09/19/21 09:37 Pulse Ox 96 09/19/21 09:37 Allergies Allergy/AdvReac Type Severity Reaction Status Date / Time venom-wasp Allergy Severe Swelling Verified 09/19/21 09:35 Home Medications Medication Instructions Recorded Confirmed Type aspirin 325 mg tablet 325 mg PO DAILY 06/23/19 09/19/21 History albuterol sulfate 90 mcg/actuation 2 puff INHALATION Q4-6H PRN #18 gm 05/05/21 09/19/21 Rx aerosol inhaler mirabegron 25 mg tablet,extended 25 mg PO DAILY 05/05/21 09/19/21 History release 24 hr finasteride 5 mg tablet 5 mg PO DAILY #90 tablet 07/01/21 09/19/21 Rx lisinopril 20 1 tablet PO DAILY #90 tablet 07/03/21 09/19/21 Rx mg-hydrochlorothiazide 25 mg tablet simvastatin 10 mg tablet 10 mg PO QHS #90 tablet 07/24/21 09/19/21 Rx tamsulosin 0.4 mg capsule 0.4 mg PO DAILY cap 07/30/21 09/19/21 History metoprolol succinate 25 mg 25 mg PO DAILY #90 tablet 08/25/21 09/19/21 Rx tablet,extended release 24 hr fluticasone 250 mcg-salmeterol 50 1 inh INHALATION BID #180 ea 09/08/21 09/19/21 Rx mcg/dose blistr powdr for inhalation levothyroxine 150 mcg tablet 150 mcg PO DAILY #90 tablet 09/08/21 09/19/21 Rx benzonatate 100 mg capsule 100 mg PO TID 09/10/21 09/19/21 History Patient hx anesthesia problems: none Family hx anesthesia problems: none Results Review: All pre-operative results and documents have been reviewed as part of the pre-operative evaluation. [facility] Past Medical History Medical History Benign prostatic hyperplasia Chronic obstructive pulmonary disease, unspecified DDD (degenerative disc disease), lumbar Dyslipidemia Esophageal dilatation 2018 Essential (primary) hypertension Gastro-esophageal reflux disease without esophagitis History of COVID-19 05/2021 History of esophageal dilatation (~2019) Hypothyroidism, unspecified Low back pain at multiple sites Smoking greater than 40 pack years Tonsillectomy planned 1959 Vascular dementia without behavioral disturbance Surgical History Surgical History H/O hernia repair 1989 Hx of tonsillectomy (Unknown) Social History Social History Smoking packs per day: 1 Smoking cigarettes per day: 20.0 Years smoked: 50 Smoking pack-years: 50.00 Tobacco type: cigarettes Second hand tobacco smoke exposure: No Alcohol intake: current Substance use: never Living arrangements: with family Additional occupation/education comments: disabled Gender identity (if verbalized by the patient): Male Spiritual care concerns: No Anes - Eval Final PreProcedure Day of Procedure 09/19/21 10:32 Patient weight: obese Heart: regular rate and rhythm Lungs: clear to auscultation Airway: Mallampati scale class II Neurological: alert and oriented Last oral intake: >/= 8 hours ASA classification: III Emergent: no Anesthetic plan: proceed Anesthesia type and monitoring: general GIVS and standard monitoring Results Review: All pre-operative results and documents have been reviewed as part of the pre-operative evaluation. Informed Consent: The patient's anesthetic plan and its attendant risks and benefits were discussed with the patient/family/POA. Questions were solicited and answers provided to the satisfaction of the patient/family/POA.
[2021-09-19 11:05] VITALS: BP 124/80; PULSE 70; RESP 18; O2SAT 97
[2021-09-19 11:15] VITALS: BP 121/83; PULSE 69; RESP 16; O2SAT 94
[2021-09-19 11:25] VITALS: BP 139/97; PULSE 64; RESP 16; O2SAT 94
== END 2021-09-19 11:46 | disposition home or self-care (01) ==
PROVIDERS: Visit Provider Internal Medicine Gastroenterology
PROC: 0DJ08ZZ Inspection of Upper Intestinal Tract, Via Natural or Artificial Opening Endoscopic (ICD-10-PCS; CPT 43235; principal; 2021-09-19 10:45)
DX: R13.10 Dysphagia, unspecified (principal); K21.00 Gastro-esophageal reflux disease with esophagitis, without bleeding; K22.10 Ulcer of esophagus without bleeding; J44.9 Chronic obstructive pulmonary disease, unspecified; E78.5 Hyperlipidemia, unspecified; N40.0 Benign prostatic hyperplasia without lower urinary tract symptoms; E03.9 Hypothyroidism, unspecified; F01.50 Vascular dementia, unspecified severity, without behavioral disturbance, psychotic disturbance, mood disturbance, and anxiety; F17.210 Nicotine dependence, cigarettes, uncomplicated; Z79.82 Long term (current) use of aspirin; Z79.51 Long term (current) use of inhaled steroids; E66.9 Obesity, unspecified; Z68.30 Body mass index [BMI] 30.0-30.9, adult
CPT/HCPCS: 43450; 43235; J2704; J7120

== ENCOUNTER 2022-05-06 16:11 | Outpatient (CLI) | payer MEDICARE, SELFPAY ==
--- NOTE | ~2022-05-06 | US_ITS ---
EXAMINATION: US venous doppler LE LT DATE: 05/06/2022 18:11 INDICATION: EDEMA OF LE LT . TECHNIQUE: Grayscale images without and with compression and Doppler images of the left lower extremi ty veins were obtained. COMPARISON: None FINDINGS: The left common femoral vein, profunda femoral vein, femoral vein, popliteal vein, peroneal vein, pos terior tibial veins, gastrocnemius vein, and greater saphenous vein are patent. Somewhat complex cyst ic mass in the left popliteal fossa. IMPRESSION: 1. Patent left lower extremity veins. No evidence of deep venous thrombosis. 2. Complex left popliteal fossa mass, may represent an infected/inflamed Canales's cyst. Reviewed, dictated and finalized at location K. STICS SUPPORT IMPRESSION: 1. Patent left lower extremity veins. No evidence of deep venous thrombosis. 2. Complex left popliteal fossa mass, may represent an infected/inflamed Canales' s cyst.
[2022-05-06 17:50] LABS: Alanine Aminotransferase 46 U/L (6-50); Alkaline Phosphatase 72 U/L (38-126); Anion Gap 4 mmol/L (8-16); Aspartate Amino Transferase 35 U/L (17-59); Bilirubin,Total 0.5 mg/dL (0.2-1.3); Blood Urea Nitrogen 16 mg/dL (9-20); Calcium 8.5 mg/dL (8.4-10.2); Carbon Dioxide 31 mmol/L (22-30); Chloride 102 mmol/L (98-107); Estimated Glomerular Filt Rate > 60; Glucose 89 mg/dL (65-110); Potassium 3.4 mmol/L (3.4-5.0); Sodium 137 mmol/L (137-145)
== END 2022-05-06 16:12 | disposition home or self-care (01) ==
DX: R60.0 Localized edema (principal); R41.3 Other amnesia
CPT/HCPCS: 36415; 80053; 93971

== ENCOUNTER 2022-09-02 12:34 | Outpatient (CLI) | payer MEDICARE, SELFPAY ==
--- NOTE | 2022-09-02 | ECHO_ITS ---
Patient Info Name: Zelalem Sanchez Age: 67 years : 1955 Gender: Male Ht: 70 in Wt: 220 lbs BSA: 2.25 m2 HR: 72 bpm BP: 148 / 102 mmHg Heart Rhythm: Sinus Rhythm Technical Quality: Fair Exam Date: 09/02/2022 12:47 PM Exam Location: [facility] Patient Status: Outpatient Admit Date: 09/02/2022 Staff Ordering Physician: Luis AlbertoBarry MD Pick Up Attendant: Amina Spencer RDCS Attending Provider: Sobeida, Barry Fiore MD Referring Physician: Luis Alberto CAMPBELL; Exam Type: CA echo dop color flow w con Study Info Indications - Localized edema, Smoker/SOB Complete two-dimensional, color flow and Doppler transthoracic echocardiogram is performed. Strain analysis performed. Summary 1. Complete two-dimensional, color flow and Doppler transthoracic echocardiogram is performed. 2. Technically difficult study. Definity contrast enhancement administered. 3. Left ventricular chamber dimension is normal. 4. Left ventricular systolic function is normal, estimated at 65-70%. Prominent trabeculations. 5. There is moderately increased left ventricular wall thickness. 6. The left ventricular diastolic function is grade I diastolic dysfunction. 7. Global longitudinal strain is moderately elevated at -11 %. 8. There is trace tricuspid valve regurgitation. 9. No pulmonary hypertension, estimated pulmonary arterial systolic pressure is 26 mmHg. Left Ventricle Left ventricular chamber dimension is normal. Left ventricular systolic function is normal, estimated at 65-70%. Prominent trabeculations. There is moderately increased left ventricular wall thickness. The left ventricular diastolic function is grade I diastolic dysfunction. Global longitudinal strain is moderately elevated at -11 %. Technically difficult study. Definity contrast enhancement administered. Right Ventricle Right ventricular chamber dimension is normal. Right ventricular systolic function is normal. Left Atria Left atrial chamber dimension is normal. Right Atria Right atrial chamber dimension is normal. Aortic Valve The aortic valve is probable trileaflet. There is no aortic valve stenosis. There is no aortic valve regurgitation. Pulmonic Valve The pulmonic valve is not well visualized. There is trace pulmonic regurgitation. Mitral Valve The mitral valve has thickened leaflets. There is no mitral valve regurgitation. The mitral valve annulus is severely calcified. Tricuspid Valve The tricuspid valve leaflets are normal. There is trace tricuspid valve regurgitation. No pulmonary hypertension, estimated pulmonary arterial systolic pressure is 26 mmHg. Pericardium/Pleural The pericardium appears normal. Inferior Vena Cava Normal inferior vena cava with >50% collapse upon inspiration consistent with normal right atrial pressure, 5 mmHg. Aorta The aortic root size at the sinus of Valsalva is normal. There is mild aortic atherosclerosis. Left Ventricular Outflow Tract Name Value Normal LVOT 2D LVOT Diameter 2.01 cm LVOT Doppler LVOT Peak Gradient 3 mmHg LVOT Mean Gradient 1 mmHg LVOT VTI 16.21 cm LVOT VTI/AV VTI Ratio
[2022-09-02] MEDS: PERFLUTREN LIPID MICROSPHERES 1.5 ML VIAL DILUTED TO 10 ML TOTAL VOLUME IV PUSH (13:45)
== END 2022-09-02 12:35 | disposition home or self-care (01) ==
LOC: ANHCARD 12:35
PROVIDERS: PCP Family Medicine; Visit Provider Family Medicine
DX: R60.0 Localized edema (principal)
CPT/HCPCS: C8929; Q9957

== ENCOUNTER 2022-09-17 08:00 | Outpatient (RCR) | payer MEDICARE, SELFPAY ==
--- NOTE | 2022-08-17 10:37 | PTOPEVAL1 ---
Assessment and note entered by Scooby Newby, PT, DPT Evaluation Information Assessment Status Evaluation Diagnosis alex shoulder pain Onset 1-2 months Subjective Information Pt states about 1-2 months ago he fell when walking a dog. He states his arms were bruised and the bruising has gone away but he still has pain. He states he does laundry to exercise his arms. He reports he is treating the pain with medication . Reported Pain Level Pain Score 7,7: Self Report Assessment PT Clinical Summary Zelalem presents to therapy today for his initial evaluation with a diagnosis of alex shoulder pain after a fall 1-2 months ago. He demonstrate alex shoulder pain that is pain free within the available range and WNL, alex shoulder flexion ~150 deg, and alex shoulder abduction ~130 deg. He demonstrates gross shoulder strength grossly 4+/5. He reports tenderness to palpation without an increase in soft tissue density throughout his alex shoulder and scapular region. He does demonstrates hyperactive upper trap and has activation even when sitting at rest. Skilled physical therapy services are indicated to address pain, improve body awareness, to decreased substitutions, and to return to baseline function. Plan of Care Interventions Electrical Stimulation,Hot Pack/Cold Pack,Manual Therapy,Neuro Re-education,Patient/Caregiver Educati,Prosthetic Training,Self-Care/Home Management PT Services Indicated Yes Treatment Frequency and 2x/wk for 3 wks Duration These treatments will address the objective and functional deficits as defined above. The patient will be advanced safely and appropriately in order for the patient to progress towards his/her prior level of function. Additional exercises will be introduced and as well as a comprehensive home exercise program upon discharge, if needed, ?to ensure carryover of functional gains achieved in the clinic. This treatment plan has been reviewed and agreement upon by the patient.
--- NOTE | 2022-09-07 13:40 | PCPTNOTE ---
Patient called & cancelled scheduled appointment this date due to being unable to make it. Called and left voicemail asking if he needs to reschedule. If we do not hear from him in the next week or so he will be discharged.
--- NOTE | 2022-09-17 08:19 | PTOPDC ---
Assessment and note entered by Scooby Newby, PT, DPT Evaluation Information Assessment Status Discharge Diagnosis alex shoulder pain Onset 1-2 months Subjective Information Pt states his shoulder is doing much better. He reports good compliance with his HEP. He reports 98% improvement in overall symptoms. Reported Pain Level Pain Score 1,1: Self Report Assessment PT Clinical Summary Zelalem presents to therapy today for his progress report following 6 visits of skilled therapy to treat his alex shoulder pain. He reports no functional limitations and has met all of his therapy goals. He no longer requires skilled services and will be discharged at this time. Plan of Care PT Services Indicated No
== END 2022-09-17 15:54 | disposition home or self-care (01) ==
LOC: ANHGOSHPT 08:00
PROVIDERS: PCP Family Medicine; Visit Provider Nurse Practitioner Family
DX: M25.511 Pain in right shoulder (principal); M25.512 Pain in left shoulder
CPT/HCPCS: 97110; 97112; 97140; 97161

== ENCOUNTER 2023-02-26 14:30 | Outpatient (CLI) | payer MEDICARE, SELFPAY ==
--- NOTE | ~2023-02-26 | US_ITS ---
EXAMINATION: US venous doppler [facility] DATE: 02/26/2023 15:37 INDICATION: Left lower limb swelling TECHNIQUE: Grayscale ultrasound images without and with compression and Doppler ultrasound images of the left lower extremity veins were obtained. COMPARISON: 05/06/2022 FINDINGS: The visualized portions of left common femoral vein, profunda (deep) femoral vein, femoral vein, popl iteal vein, peroneal veins, posterior tibial veins, gastrocnemius vein and greater saphenous vein out flow remain patent. IMPRESSION: 1. No deep venous thrombosis in the left lower limb. Reviewed, dictated and finalized at location A.
== END 2023-02-26 14:31 | disposition home or self-care (01) ==
PROVIDERS: PCP Family Medicine; Visit Provider Physician Assistant Surgical
DX: R60.0 Localized edema (principal)
CPT/HCPCS: 93971

== ENCOUNTER 2023-09-02 14:29 | Outpatient (CLI) | payer MEDICARE, SELFPAY ==
--- NOTE | ~2023-09-02 | CT_ITS ---
EXAMINATION:CT lung screening DATE: 09/02/2023 14:50 INDICATION: Personal history of nicotine dependence. 98 pack-year history. TECHNIQUE: Computed tomography (CT) of the chest was performed without intravenous contrast. Automate d exposure control and iterative reconstruction technique were employed. The dose-length product (DLP ) was 202.93 mGy-cm. COMPARISON: Chest CT 01/23/2021 FINDINGS: There is mild scarring at the lung apices. There is a new 4 mm nodule in right lower lobe. There is a chronic 11 mm nodule containing fat in right upper lobe, consistent with a hamartoma. A ca lcified left lung nodule is consistent with old granulomatous disease. No pleural effusion. The heart size is normal. No pericardial effusion. IMPRESSION: 1. Lung-RADS category 3: Probably benign. Further evaluation is recommended with noncontrast low-dose chest CT in 6 months. Reviewed, dictated and finalized at location E. IMPRESSION: 1. Lung-RADS category 3: Probably benign. Further evaluation is recommended wit h noncontrast low-dose chest CT in 6 months.
== END 2023-09-02 14:30 | disposition home or self-care (01) ==
PROVIDERS: PCP Family Medicine; Visit Provider Family Medicine
DX: Z12.2 Encounter for screening for malignant neoplasm of respiratory organs (principal); Z87.891 Personal history of nicotine dependence; R91.8 Other nonspecific abnormal finding of lung field
CPT/HCPCS: 71271

== ENCOUNTER 2023-12-29 09:50 | Emergency (ER) | payer MEDICARE, SELFPAY ==
[2023-12-29 09:54] VITALS: BP 146/93; PULSE 75; RESP 16; TEMP 36.4; O2SAT 98
--- NOTE | 2023-12-29 10:13 | ED.GENADULT ---
HPI - General Adult General Chief complaint: Skin/Abscess/Foreign Body Stated complaint: hooked himself Time Seen by Provider: 12/29/23 09:55 History of Present Illness HPI narrative: 68-year-old male presenting to the emergency department for evaluation for a fish hook in his left arm. Patient was patient's morning and inadvertently got the hook stuck in his left hand. Related Data Home Medications Medication Instructions Recorded Confirmed aspirin 325 mg tablet 325 mg PO DAILY 06/23/19 09/19/21 mirabegron 25 mg tablet,extended 25 mg PO DAILY 05/05/21 09/19/21 release 24 hr (Myrbetriq) tamsulosin 0.4 mg capsule 0.4 mg PO DAILY 07/30/21 09/19/21 benzonatate 100 mg capsule 100 mg PO TID 09/10/21 09/19/21 Allergies Allergy/AdvReac Type Severity Reaction Status Date / Time venom-wasp Allergy Severe Swelling Verified 12/29/23 10:30 Review of Systems Review of Systems: All systems reviewed & are unremarkable except as noted in HPI and below PMFSH Past Medical History Medical History Benign prostatic hyperplasia Chronic obstructive pulmonary disease, unspecified DDD (degenerative disc disease), lumbar Dyslipidemia Esophageal dilatation 2018 Essential (primary) hypertension Gastro-esophageal reflux disease without esophagitis History of COVID-19 05/2021 History of esophageal dilatation (~2018) Hypothyroidism, unspecified Low back pain at multiple sites Smoking greater than 40 pack years Tonsillectomy planned 1959 Vascular dementia without behavioral disturbance Surgical History Surgical History H/O hernia repair 1989 Hx of tonsillectomy (Unknown) Social History Social History Smoking packs per day: 1 Smoking cigarettes per day: 20.0 Years smoked: 50 Smoking pack-years: 50.00 Tobacco type: cigarettes Second hand tobacco smoke exposure: No Alcohol intake: current Substance use: never Living arrangements: with family Occupation/Education: other Additional occupation/education comments: disabled Gender identity (if verbalized by the patient): Male Spiritual care concerns: No Exam Narrative: APPEARANCE: Well appearing, no pain, no distress, well-nourished. HEAD: normocephalic, atraumatic. EYES: PERRLA/EOMI, conjunctivae clear. NOSE: Normal no drainage EARS:TMS clear with good light reflex. THROAT: Pharynx clear, no exudate. NECK: Supple. No adenopathy, no masses. RESPIRATORY: Airway patent, respirations nonlabored. Clear to auscultation bilaterally, no rales, rhonchi, wheezing. CARDIOVASCULAR: Regular rate and rhythm without murmurs rubs or gallops. ABDOMINAL: Soft, nontender, nondistended, normal bowel sounds MUSCULOSKELETAL: Moves all extremities. Strength/ROM intact, No edema, No calf tenderness. NEURO: Alert. Cranial nerves II through XII intact. Good gait. Good coordination SKIN: [place] in left forearm Course Course Emergency Course: [place] was removed as described in procedure note, patient was started on Keflex and patient's tetanus was updated Vital Signs Vital signs: Vital Signs Temperature 97.6 F 12/29/23 09:54 Pulse Rate 75 12/29/23 09:54 Respiratory Rate 16 12/29/23 09:54 Blood Pressure 146/93 H 12/29/23 09:54 Pulse Oximetry 98 12/29/23 09:54 Oxygen Delivery Room Air 12/29/23 09:54 Temperature 97.6 F 12/29/23 09:54 Pulse Rate 74 12/29/23 10:21 Respiratory Rate 18 12/29/23 10:21 Blood Pressure 149/94 H 12/29/23 10:21 Pulse Oximetry 96 12/29/23 10:21 Oxygen Delivery Room Air 12/29/23 10:21 Procedures Foreign Body Removal Foreign Body #1: Time Out Performed: yes Site: left Description of foreign body: fish hook Sedation/Analgesia: none Technique: removal with forceps Confirmed by:: direct v
[2023-12-29] MEDS: LIDO 1%/EPINEPHRINE 1:100,000 20 ML VIAL 10 ML INFILTRATE (10:20)
[2023-12-29 10:21] VITALS: BP 149/94; PULSE 74; RESP 18; O2SAT 96
[2023-12-29] MEDS: CEPHALEXIN 500 MG CAPSULE PO (10:30)
[2023-12-29] MEDS: TETANUS,DIPHTHERIA,AC PERTUSSIS ADULT (0.5 ML) BOOSTRIX IM (10:31)
== END 2023-12-29 10:38 | disposition home or self-care (01) ==
LOC: ANHED 10:21
PROVIDERS: Emergency Provider Emergency Medicine; PCP Family Medicine
DX: S50.852A Superficial foreign body of left forearm, initial encounter (principal); Z23 Encounter for immunization; I10 Essential (primary) hypertension; J44.9 Chronic obstructive pulmonary disease, unspecified; E78.5 Hyperlipidemia, unspecified; E03.9 Hypothyroidism, unspecified; N40.0 Benign prostatic hyperplasia without lower urinary tract symptoms; K21.9 Gastro-esophageal reflux disease without esophagitis; F01.50 Vascular dementia, unspecified severity, without behavioral disturbance, psychotic disturbance, mood disturbance, and anxiety; F17.210 Nicotine dependence, cigarettes, uncomplicated; Z86.16 Personal history of COVID-19; W45.8XXA Other foreign body or object entering through skin, initial encounter
CPT/HCPCS: 90471; 90715; 99283; A9270

== ENCOUNTER 2024-05-31 19:54 | Emergency (ER) | payer MEDICARE, SELFPAY ==
--- NOTE | ~2024-05-31 | XR_ITS ---
EXAMINATION: XR chest 1V portable 06/01/2024 00:32 INDICATION: Cough. PROCEDURE: AP portable chest COMPARISON: 08/20/2021 FINDINGS: There is a right upper lobe nodule measuring approximately 12 mm. No focal air space diseas e, pulmonary edema, pleural effusion or suspected pneumothorax. . The cardiomediastinal silhouette i s within normal limits. There are no pleural effusions. There is no pneumothorax suspected. IMPRESSION: 1: Right upper lobe nodule. Follow-up CT chest recommended. Dr. Nicola Bae discussed with the emergency room physician at 06/01/2024 6:30 PRODUCT OPERATIONS ASSOCIATE. Reviewed, dictated and finalized at location A. UCT OPERATIONS ASSOCIATE IMPRESSION: 1: Right upper lobe nodule. Follow-up CT chest recommended. Dr. Nicola Bae discussed with the emergency room physician at 06/01/2024 6:30 CS [place]
--- OUTSIDE RECORDS SUMMARY | 2024-05-31 19:57 | XMS_ITS | Referral Summary ---
Author Organization [email or web address] Address [address] [place] [address] Care Team Providers Care On Call Name Role Phone Karen Desouza MD Primary Care Provider + Source Comments [email or web address],non-owned Affiliates and Associated Physician Practices is amultiple site organization consisting of ambulatory clinics and hospital sitesin [place], [place], [place] and [place]. This disclosure is being madepursuant to the Care Everywhere program and may not contain all information available regarding this patient. Last updated 18.[email or web address] Allergies No known active allergies Medications * Be aware that medications may not be up to date on this document. Alwaysverify current medications with the patient. Medication Sig Dispensed Refills Start Date End Date Status levothyroxine (SYNTHROID) 200 MCG tablet Take 200 mcg by mouth daily before breakfast. Active omeprazole (PRILOSEC) 20 MG capsule Take 20 mg by mouth daily before breakfast. Active tamsulosin CR 24hr (FLOMAX) 0.4 MG capsule Take 0.4 mg by mouth once daily. Take 30 minutes after a meal at the same time each day. Active metoprolol succinate XL 24hr (TOPROL XL) 25 MG tablet Take 25 mg by mouth once daily. Active Active Problems No known active problems Social History Tobacco Use Types Packs/Day Years Used Date Smoking Tobacco: Every Day Smokeless Tobacco: Never Alcohol Use Standard Drinks/Week Comments Yes 0 (1 standard drink = 0.6 oz pur e alcohol) rarely Sex and Gender Information Value Date Recorded Sex Assigned at Not on file Gender Identity Not on file Sexual Orientation Not on file Last Filed Vital Signs Vital Sign Reading Time Taken Comments Blood Pressure 112/88 06/29/2014 8:32 AM TRACTOR TRAILER TECHNICIAN Pulse 56 06/29/2014 8:33 AM TRACTOR TRAILER TECHNICIAN Temperature 36.7 ??C (98 ??F) 06/29/2014 7:04 AM TRACTOR TRAILER TECHNICIAN Respiratory Rate 18 06/29/2014 8:33 AM TRACTOR TRAILER TECHNICIAN Oxygen Saturation 97% 06/29/2014 8:33 AM TRACTOR TRAILER TECHNICIAN Inhaled Oxygen Concentration - - Weight 83.9 kg (185 lb) 06/29/2014 7:04 AM TRACTOR TRAILER TECHNICIAN Height 177.8 cm (5' 10 ) 06/29/2014 7:04 AM TRACTOR TRAILER TECHNICIAN Body Mass Index 26.54 06/29/2014 7:04 AM TRACTOR TRAILER TECHNICIAN Plan of Treatment Not on file Care Teams On Call Relationship Specialty Start Date End Date Karen Desouza MD [address] [place] [address] PCP - General Family Medicine 06/29/14
--- OUTSIDE RECORDS SUMMARY | 2024-05-31 19:57 | XMS_ITS | Data Portability ---
Author Organization [place] - [facility] [employer], Main Office Address [address] [place] [address] Care Team Providers Care Clerk Of Superior Court Name Role Phone JESSIE DSOUZA Primary Care Provider JESSIE DSOUZA Referring Provider Assessment Encounter Date Assessment Date Assessment LastModified by Organization Details LastModified Time 02/22/2023 02/22/2023 Patient has a mildly angulated closed acute traumatic midshaft transverse fracture through the proximal phalanx of the left great toe. There is some mild dorsal angulation we talked about treatment options today in detail I offered him a closed reduction to see if we can improve this somewhat it is not bad but I think we can get little better if we try. He wanted proceed therefore after sterile prep around the base of the great toe I did a ring block with 8 cc of 0.5% bupivacaine plain injecting around the base of the toe. The patient tolerated the procedure well. Once he was numbed up I then proceeded to apply gentle traction and plantar pressure of the distal toe to try to reduce the dorsal angulation. Patient tolerated procedure well. I then kelly-taped the 1st and 2nd toes together. New x-rays were then done which show maybe just a touch of improvement of the dorsal angulation but not much. Overall clinically as toe looks good I do not think this is going to be an issue for him. Should heal uneventfully as long as he protects it. I have advised him to keep the toes kelly-taped together make sure he cleans between his toes changes the tape daily. We also got him a well-fitting hard-soled shoe that extended beyond the big toe and had it and closure that they will grow to over the toe to protect it as much as possible. He is advised to put most of his weight on his heel not rock forward on to the toe. The hard-soled shoe was molded and fitted to his best comfort and support today. He is to wear this ware cleaner when he is up and about. We will see him back in 2 weeks for new x-rays if he has any further problems difficulties or questions he is instructed call he voiced understanding and agrees above plan. Not available 02/22/2023 12:18:37 02/26/2023 02/26/2023 Patient has fracture of the great toe left foot as described. He has a little more swelling than he did when I saw him previously just to be sure we will send him over for a venous duplex scan to make sure he does not have a DVT. As long this is negative I have advised him to work on elevation of the left lower extremity as much as possible I will see him again in a week if everything looks good otherwise he will be treated if he does have a DVT. The patient voiced understanding agrees above plan call for any further problems difficulties or questions. We will send him over to the hospital now for a stat venous duplex scan left lower extremity. Not available 02/26/2023 14:07:06 03/08/2023 03/08/2023 The patient has a healing fracture left great toe proximal phalanx. Today's x-rays show continued unchanged alignment from his previous x-rays. He is getting better feeling better with time I will see him back in a month for new x-rays he will continue with the hard-soled shoe and kelly taping the toes together for support he is doing well he will call for any further problems difficulties or questions he voiced understanding agrees above plan. Not available 03/08/2023 10:48:05 04/01/2023 04/01/2023 Patient is a healing fracture of the proximal phalanx left great toe. Today's x-rays show new significant callus formation fracture line is still somewhat visible overall alignment is unchanged from previous x-rays and today's exam did not elicit any pain or tenderness. He is doing very well I think at this point he can get out of the hard-soled shoe and stop kelly taping. I have advised him to wear solid supportive shoes for the next 2-3 weeks that he can get back into tennis shoes or whenever he would like to wear. I do not think we need any further follow-up he is feeling good his x-rays are looking good in terms of the healing if he has any problems difficulties or questions or develops any pain he is instructed to call he voiced understanding and agrees above plan. Not available 04/01/2023 15:02:08 Plan of Treatment Reminders Order Date Submit Date Provider Last Modified By Organization Details Last Modified Time Details Appointments None recorded. Lab None recorded. Referral None recorded. Procedures injection/a spiration joint/bursa (PROC) 2022 023 [email or web address] In-Office Order, Internal Use Only DO Not Attach Compendium DO Not Attach Compendium, Do Not Delete/merge, [id number] 11:56:40 Surgeries None recorded. Imaging XR, foot 2022 023 [facility] [place], [address] [facility] [address], [place], [address], 12:50:44 US, duplex, venous, lower extremity - Please call Nando Villela with results ) 2022 [facility], [address], [place], [address], 16:41:59 XR, foot 2022 023 [email or web address] [facility] [place], [address], [place], [address], 10:50:44 XR, foot 2022 023 [facility] [place], [address] [facility] [address], [place], [address], 16:21:55 Medication Orders bupivacaine HCl 0.5 % (5 mg/mL) injection solution 2022 023 Not available 12:50:44 Patient TargetsNo targets recorded. Patient InstructionsNo instructions recorded. Reason for Referral None Reported. Results Created Date Observation Date Name Description Value Unit Range Abnormal Flag Note LastModifiedBy Organization Detail LastModifiedTime 02/23/2002/17/2023 XR, foot, 3 or more view No observ ation record ed. [email or web address] Not Available 02/01 10:39:18 02/23/20 XR, foot No observ ation record ed. [facility] [place] [address], [place], [address], 02/22/2023 12:19:55 02/27/2002/26/2023 US, heriberto x, linus s, lower extre mity No observ ation record ed. [address] [facility] [address], [place], [address], 03/01/2023 10:36:02 03/08/20 XR, foot No observ ation record ed. [facility] [place] [address] [facility] [address], [place], [address], 03/08/2023 10:49:11 04/01/20 XR, foot No observ ation record ed. [facility] [place] [address] [facility] [address], [place], [address], 04/01/2023 15:03:11 Result Notes None recorded. Problems Name Problem SNOMED Code Status Onset Date Resolution Date Notes Provider Name and Address Organization Details Recorded Time Pain in left foot 64785581948876 7 Active 2022 Citlali Hernandez CMA null, [employer] 11:36:05 Closed fracture of proximal phalanx of great toe 638560830 Active 2022 GOSIA Ortiz [address] [facility], [place], [address], [place] [employer] 3 12:20:27 Swelling of lower leg 461253586 Active 2022 Joelle Matamiko , ATC L null, [employer] 3 14:04:14 Localized edema 098304932 Active 2022 Joelle Matamiko , ATC L null, [employer] [facility] 3 14:04:43 Closed fracture proximal phalanx, toe 806976207 Active 2022 Arleth Marcano, RMA null, [facility] 3 10:28:13 Closed fracture proximal phalanx, toe 668988475 Active 2022 Corazon Garcia, MINE TECHNICIAN null, [employer] 13:51:18 Problem Notes None recorded. Procedures Surgical History Date Name Laterality Status Provider Name and Address Organization Details Recorded Time hernia repair completed Citlali jay CMA [employer] [facility] 02/22/2023 11:31:50 tonsillectomy completed Citlali jay CMA [facility] 02/22/2023 11:32:06 Imaging Results Imaging Date Name Status LastModified by Organ [facility] Details LastModified Time 02/17/2023 XR, foot, 3 or more view completed [email or web address] Information not available 02/22/2023 10:39:18 02/22/2023 XR, foot completed [facility] [place] [address] [facility] [address], [place], [address], 02/22/2023 12:19:55 02/26/2023 US, duplex, venous, lower extremity completed [address] [facility] [address], [place], [address], 03/01/2023 10:36:02 03/08/2023 XR, foot completed [facility] [place] [address] [facility] [address], [place], [address], 03/08/2023 10:49:11 04/01/2023 XR, foot completed [facility] [place] [address] [facility] [address], [place], [address], 04/01/2023 15:03:11 Procedure Notes None recorded. Medical Equipment None Reported. Allergies No known drug allergies Medications Name Sig Start Date Stop Date Status Note LastModified by Organization Details LastModified Time cyclobenzap rine 10 mg tablet TAKE 1 TABLET BY ORAL ROUTE EVERY 8 HOURS - CUT IN HALF IF TOO SEDATING active Not Available Not Available No t Available doxycycline hyclate 100 mg capsule TAKE 1 CAPSULE BY MOUTH TWICE A DAY FOR 10 DAYS active Not Available Not Available No t Available azithromyci n 250 mg tablet TAKE 2 TABLETS BY MOUTH TODAY, THEN TAKE 1 TABLET DAILY FOR 4 DAYS active Not Available Not Available No t Available ibuprofen 800 mg tablet TAKE 1 TABLET BY MOUTH EVERY 8 HOURS NEEDED WITH FOOD active Not Available Not Available No t Available benzonatate 200 mg capsule TAKE 1 CAPSULE ORAL ROUTE 3 TIMES PER DAY NEEDED FOR COUGH active Not Available Not Available No t Available donepezil 10 mg tablet TAKE 1 TABLET BY MOUTH EVERYDAY AT BEDTIME active Not Available Not Available No t Available bupivacaine HCl 0.5 % (5 mg/mL) injection solution Take 50 mg by injection route. 2022 active LOT# [id number] EXP. 10/01 Not Available Not Available Not Available prednisone 20 mg tablet TAKE 2 TABLETS BY MOUTH EVERY DAY FOR 5 DAYS active Not Available Not Available No t Available simvastatin 10 mg tablet TAKE 1 TABLET BY MOUTH EVERYDAY AT BEDTIME active Not Available Not Available No t Available tramadol 50 mg tablet TAKE 1 TABLET ORAL ROUTE EVERY 6 HOURS NEEDED active Not Available Not Available No t Available amoxicillin 875 mg tablet TAKE 1 TABLET ORAL ROUTE EVERY 12 HOURS FOR 10 DAYS 02/22 completed Not Available Not Available Not Available tamsulosin 0.4 mg capsule TAKE 1 CAPSULE BY MOUTH EVERY DAY active Not Available Not Available No t Available imiquimod 5 % topical cream packet PLEASE SEE ATTACHED FOR DETAILED DIRECTION S active Not Available Not Available No t Available benzonatate 100 mg capsule TAKE 1 CAPSULE BY MOUTH EVERY 8 HOURS NEEDED active Not Available Not Available No t Available cephalexin 500 mg capsule TAKE 1 CAPSULE BY MOUTH 2 TIMES A DAY FOR 5 DAYS. 02/22 completed Not Available Not Available Not Available pantoprazol e 40 mg tablet,fanta yed release TAKE 1 TABLET BY MOUTH EVERY DAY IN THE MORNING active Not Available Not Available No t Available polymyxin B sulfate 10,000 unit-trimet hoprim 1 mg/mL eye drops ADMINISTE R 2 DROPS INTO BOTH EYES 4 (FOUR) TIMES A DAY active Not Available Not Available No t Available levothyroxi ne 150 mcg tablet TAKE 1 TABLET BY MOUTH EVERY DAY active Not Available Not Available No t Available lisinopril 20 mg-hydrochl orothiazide 25 mg tablet TAKE 1 TABLET BY MOUTH EVERY DAY active Not Available Not Available No t Available furosemide 20 mg tablet TAKE 1 TABLET BY MOUTH EVERY DAY active Not Available Not Available No t Available metoprolol succinate ER 25 mg tablet,exte nded release 24 hr TAKE 1 TABLET (25 MG TOTAL) BY MOUTH DAILY. active Not Available Not Available No t Available ibuprofen 600 mg tablet TAKE 1 TABLET ORAL ROUTE EVERY 6 HOURS NEEDED TAKE WITH FOOD active Not Available Not Available No t Available methylpredn isolone 4 mg tablets in a dose pack TAKE 6 TABLETS ON DAY 1 DIRECTED ON PACKAGE AND DECREASE BY 1 TAB EACH DAY FOR A TOTAL OF 6 DAYS active Not Available Not Available No t Available albuterol sulfate HFA 90 mcg/actuati on aerosol inhaler INHALE 2 PUFFS BY MOUTH EVERY 4 TO 6 HOURS NEEDED FOR SHORTNESS OF BREATH OR WHEEZING active Not Available Not Available No t Available hydroxyzine HCl 10 mg tablet TAKE 1 TABLET BY MOUTH EVERY 6 HOURS NEEDED FOR ITCHING active Not Available Not Available No t Available sertraline 50 mg tablet TAKE 1 TABLET BY MOUTH EVERY DAY AT NIGHT active Not Available Not Available No t Available doxycycline hyclate 100 mg tablet TAKE 1 TABLET BY MOUTH TWICE A DAY FOR 10 DAYS active Not Available Not Available No t Available finasteride 5 mg tablet TAKE 1 TABLET BY MOUTH EVERY DAY active Not Available Not Available No t Available Spiriva with HandiHaler 18 mcg and inhalation capsules active Not Available Not Available Not Available duloxetine 30 mg capsule,del ayed release TAKE 1 CAPSULE BY MOUTH EVERY DAY AT BEDTIME FOR 30 DAYS active Not Available Not Available No t Available cyclobenzap rine 7.5 mg tablet TAKE 1 TABLET BY MOUTH THREE TIMES A DAY NEEDED FOR MUSCLE SPASM active Not Available Not Available No t Available Myrbetriq 25 mg tablet,exte nded release TAKE 1 TABLET BY MOUTH EVERY DAY active Not Available Not Available No t Available Wixela Inhub 250 mcg-50 mcg/dose powder for inhalation INHALE 1 PUFF INTO THE LUNGS TWICE A DAY RINSE MOUTH WITH WATER AFTER USE active Not Available Not Available No t Available Vitals Date Recorded Body height Body mass index (BMI) Body weight Provider Name and Address Organization Details Last Updated DateTime 02/22/2023 177.8 cm 31.6 kg/m2 23939.32 g Citlali Hernandez CMA [facility] [employer] [facility] 02/22/2023 11:22:38 Date Recorded Body height Body mass index (BMI) Body weight Provider Name and Address Organization Details Last Updated DateTime 02/26/2023 177.8 cm 31.6 kg/m2 62832.32 parminder Chandra Radha [facility] [employer] [facility] 02/26/2023 13:44:05 Date Recorded Body height Body mass index (BMI) Body weight Provider Name and Address Organization Details Last Updated DateTime 03/08/2023 177.8 cm 31.6 kg/m2 63734.32 g Arleth Jeet [facility] [employer] [facility] 03/08/2023 10:27:46 Date Recorded Body height Body mass index (BMI) Body weight Provider Name and Address Organization Details Last Updated DateTime 04/01/2023 177.8 cm 31.6 kg/m2 27020.32 g Corazon Venturaclementine [facility] [employer] [facility] 04/01/2023 13:50:33 Social History Question Answer Notes LastModified by Organizat ion Details LastModified Time Tobacco Smoking Status Current Every Day Smoker [facility]lali Hernandez C[facility] [employer] 02/22/2023 11:31:24 How Much Tobacco Do You Smoke? 0.5 PPD Information not available 02/22/2023 How Many Years Have You Smoked Tobacco? 50 Information not available 02/22/2023 Sex: Unknown Functional Status None recorded. Mental Status None recorded. Family History Relationship Description Onset Age of this Age Resolved Age Notes LastModified by Organization Details LastModified Time Mother Hypertensive disorder [email or web address] Not available 2022 11:29:37 Mother Family history of stroke [email or web address] Not available 2022 11:30:50 Father Hypertensive disorder [email or web address] Not available 2022 11:29:42 Father Heart disease [email or web address] Not available 2022 11:29:59 Father Family history of malignant neoplasm [email or web address] Not available 2022 11:30:37 Father Diabetes mellitus [email or web address] Not available 2022 11:31:03 Medical History Condition Response BLINDNESS N KIDNEY STONES N CARPAL TUNNEL SYNDROME N MRSA N LUNG DISEASE/DISORDER N HISTORY OF DRUG ABUSE N RADIATION / CHEMOTHERAPY N COPD N ANKLE PAIN N SPORTS INJURY N BLOOD DISEASES N PAST SPINAL SURGERY N SCHIZOPHRENIA N SHINGLES N DEPRESSION (INCLUDING POST ) N SHOULDER PAIN N BOWEL PROBLEMS N FAILED BACK SYNDROME N STROKE/TIA Y KNEE PAIN N ULCERS N OTHER MODALITIES N BENIGN PROSTATIC HYPERPLASIA N OBESITY N GERD/NAUSEA N ANEURYSM N URINARY/BLADDER/KIDNEY PROBLEMS N CORONARY ARTERY DISEASE (CAD) N Do you have Advance directive? N ADDICTION CONCERNS N USE OF BLOOD THINNERS N SKIN PROBLEMS N EMPHYSEMA N MUSCLE,JOINT OR BONE PROBLEMS N DVT N STOMACH ULCERS N BLOOD CLOTS N PAST HISTORY OF VEHICULAR ACCIDENT N USE OF NSAIDS N CONCUSSION OR SPINAL TRAUMA N ARTERIAL INSUFFICIENCY N NEUROPATHY N AIDS/HIV N FRACTURES N ELBOW PAIN N HYPERTENSION Y TOURETTE'S N ANXIETY DISORDER N Metal allergy N BLOOD TRANSFUSION N ANEMIA/BLOOD DISORDER N BIPOLAR DISORDER N BRONCHITIS N OSTEOARTHRITIS N TUBERCULOSIS N FOOT PROBLEM N HEART VALVE DISORDERS N SLEEP APNEA N ALLERGIES/HAYFEVER N SOFT TISSUE INJURY N BACK INJECTIONS N INFECTIOUS DISEASE N HEART ARRHYTHMIA N INSOMNIA N ESRD N PAST INTERVENTIONAL PAIN MANAGEMENT HIST ORY N HIGH CHOLESTEROL / HYPERLIPIDEMIA N RHEUMATOID ARTHRITIS N PAST MEDICATION HISTORY N PVD N EDEMA N CHRONIC PAIN SYNDROME N CAROTID BLOCKAGE N BACK / NECK PROBLEMS N HAVE YOU BEEN HOSPITALIZED OR SEEN IN [facility] ER IN THE PAST YEAR ? N BURSITIS N HERNIATED DISC N DIALYSIS N POLYCYSTIC OVARIES N FIBROMYALGIA N OSTEOPOROSIS N ARTHRITIS N RESPIRATORY PROBLEMS N NO SIGNIFICANT PAST MEDICAL HISTORY N PAST HISTORY OF FALL N PERIPHERAL NEUROPATHY N DIABETES, TYPE N VON WILLIBRAND'S DISEASE N HEARTBURN / REFLUX N POST LAMINECTOMY SYNDROME N HEPATITIS / LIVER DISEASE N GOUT N SLEEP DISORDER N ALZHEIMER'S DISEASE N HERPES N HEADACHES/MIGRAINES N SEIZURES/EPILEPSY N VASCULAR DISEASE N Blood Disorder N HIP PAIN N DIZZINESS N HEAD TRAUMA OR INJURY N HEART DISEASE/HEART PROBLEMS N MULTIPLE SCLEROSIS N NEUROPSYCHOLOGICAL N CARDIAC ARRHYTHMIA N CANCER: SPECIFY N ANESTHESIA COMPLICATIONS N ATRIAL FIBRILLATION N AUTOIMMUNE DISEASE N Past Encounters Encounter ID Performer Location Encounter Start Date Encounter Closed Date Diagnosis/Indication Diagnosis SNOMED-CT Code Diagnosis ICD10 Code Diagnosis Note [id number] GOSIA Ortiz [facility] [place] [address] [place] [address] 02/22/2023 11:02:05 02/22/2023 12:13:50 Pain in left foot 0430501575 09915 M79.672 Closed fra cture of proximal phalanx of great toe 840913123 S92.412A [id number] [facility] [place] [address] [place] [address] 02/26/2023 13:34:00 02/26/2023 14:37:10 Pain in left foot 4312451124 16768 M79.672 Closed fra cture of proximal phalanx of great toe 209062452 S92.412D Swelling of lower leg 44 1602732 R22.42 Localized edema 09152844 4 R60.0 [id number] GOSIA Ortiz [facility] [place] [address] [place] [address] 03/08/2023 10:23:07 03/08/2023 10:50:44 Closed fracture proximal phalanx, toe 741249744 S92.412D Swelling of lower leg 44 6622199 R22.42 Pain in left foot 629372 9832 88512 M79.990 [id number] GOSIA Ortiz [facility] [place] [address] [place] [address] 04/01/2023 13:46:12 04/01/2023 14:58:52 Closed fracture proximal phalanx, toe 311032488 S92.412D Swelling of lower leg 44 9182750 R22.42 Pain in left foot 344053 2654 32904 M79.672 Health Concerns Section Related Observation LastModified by Organization Detai ls LastModified Time None Recorded Concern Status LastModified by Organization Details LastModified Time None Recorded Advance Directives Directive None Recorded Payers Encounter Date Sequence Insurance Name Policy Number Policy Lux Covered Member ID Lux Member ID Guarantor Name 02/22/2023 1 [facility] (MEDICARE REPLACEMENT/A DVANTAGE - HMO) [id number] Zelalem E Plegge [id number] Zelalem Plegge 02/26/2023 1 [facility] (MEDICARE REPLACEMENT/A DVANTAGE - HMO) [id number] Zelalem E Plegge [id number] Zelalem Plegge 03/08/2023 1 [facility] (MEDICARE REPLACEMENT/A DVANTAGE - HMO) [id number] Zelalem E Plegge [id number] Zelalem Plegge 04/01/2023 1 [facility] (MEDICARE REPLACEMENT/A DVANTAGE - HMO) [id number] Zelalem E Plegge [id number] Zelalem Plegge Notes Date Note Type Note Provider Name and Address Organization Details Recorded Time 02/22/2023 text/html the patient is a 68-year-old male who suffered an injury to his left great toe 1 week ago. The patient states he was going down some stairs when he stumbled rolled his foot and fell suffer any injury to the right great toe. He has some bruising and swelling he gave it a few days decided to go to the emergency room and gave the [facility]. [facility] x-rays demonstrate an acute closed traumatic mildly displaced mildly dorsally angulated distal fragment with a transverse fracture through the proximal phalanx. I have reviewed the x-rays in detail today with the patient agree with above findings. Overall [facility] x-rays look good. The dorsal angulation is only mild. The patient does have some moderate swelling he states he has been soaking the toe elevating as much as possible he was given a hard-soled shoe but this is ill fitting really not giving him much support. He also has not been kelly taping his toes together. He states the pain is about an 7 on a scale of 1-10 when he ambulates at rest it does throb and ache but is getting a little better with time. He comes in today for initial evaluation treatment of his left great toe fracture through the proximal phalanx midshaft region as described.Past medical history sheet was reviewed and signed on the intake sheet of today's date drug allergies current medications family social history previous surgical history 10 point review of systems was reviewed and discussed in detail today with the patient. GOSIA Ortiz [address], [place], [address], [employer] 02/22/2023 12:47:52 02/26/2023 text/html Patient returns complaining of some swelling in his left lower extremity he had some when I saw him last time on 02/22. He had a closed acute mildly angulated traumatic midshaft fracture of the proximal phalanx left great toe he also had some bruising and some swelling through the foot. He states it has gotten a little worse with time he is concerned about he states he has been elevating it he is in a hard-soled shoe for support. When asked about calf pain or other tenderness he says he does have a little bit up in the calf and really detect any significant swelling he states he does get some occasional swelling in both lower extremities. He comes in today to talk about the swelling in the left foot and ankle. He was not scheduled to return for another week for new x-rays. GOSIA Ortiz [address], [place], [address], [employer] 02/26/2023 14:07:43 03/08/2023 text/html Patient returns for x-rays of his left great toe. He is now a little over 2 weeks status post injury he had a closed acute mildly displaced transverse fracture through midshaft of the proximal phalanx left great toe we did a closed reduction attempt overall alignment appears acceptable he comes in today for new x-rays he did have some swelling last tightened I saw him this is getting better a duplex scan was negative for DVT. Patient is comfortable states the pain is getting much better he is wearing a hard-soled shoe for support and protection. GOSIA Ortiz [address], [place], [address], [facility] [employer] 03/08/2023 10:49:31 04/01/2023 text/html patient returns for recheck of his left great toe. He is now little over 6 weeks status post injury. He had a closed acute mildly displaced transverse fracture through the midshaft of the proximal phalanx we did a closed reduction attempt overall alignment was acceptable. He has been kelly taping his 1st and 2nd toes together along with wearing a hard-soled shoe. He comes in today stating he is now basically pain-free feeling much better has been protecting it as much as possible with the kelly taping and hard-soled shoe he has done very well. Denies any pain or tenderness today no dysfunction or deformity. He comes in today for recheck and new x-rays. GOSIA Ortiz [address] [facility] [facility] [address], [place], [address], [facility] [facility]INIC 04/01/2023 15:03:49
--- OUTSIDE RECORDS SUMMARY | 2024-05-31 19:57 | XMS_ITS | Encounter Summary ---
Author Organization [facility] Healthcare Address [address] [place] [address] Care Team Providers Care Highway Maintenance Technician Name Role Phone Barry Sahu MD Primary Care Provider [phone] Trae Bhagat MD Unavailable [phone] Lavell Solis MD Unavailable [phone] Jeferson Espinosa MD Unavailable [phone] Reason for Visit * Reason Comments Cough Cough and chills sta rted yesterday Encounter Details Date Type Department Care Team (Late st Contact Info) Description 05/31/2024 3:45 PM SUPERVISOR PLATE PASTING Office Visit [facility] at [address] [address] Meryl Cuadra, SLAB DEPILER OPERATOR [address] [place] [address] [address] [place] [address] Cough, unspecified type (Primary Dx); Exposure to influenza; History of COPD; Wheezing Social History Tobacco Use Types Packs/Day Years Used Date Smoking Tobacco: Every Day Cigarettes 2 50.1 Started: 1974 Passive Smoke Exposure: Current Smokeless Tobacco: Never Humiliation, Afraid, Rape, and Kick questionnair e Answer Date Recorded Within the last year, have y ou been afraid of your partner or ex-partner? No 09/25/2021 Within the last year, have y ou been humiliated or emotionally abused in other ways by your partner or ex-partner? No Within the last year, have y ou been kicked, hit, slapped, or otherwise physically hurt by your partner or ex-partner? No 09/25/2021 Within the last year, have y ou been raped or forced to have any kind of sexual activity by your partner or ex-partner? No 09/25/2021 AUDIT-C Answer Date Recorded Q1: How often do you have a drink containing alc ohol? Monthly or less 03/18/2023 Q2: How many drinks containi ng alcohol do you have on a typical day when you are drinking? 1 or 2 03/18/2023 Q3: How often do you have si x or more drinks on one occasion? Never 03/18/2023 Overall Financial Resource Strain (CARDIA) Answe r Date Recorded How hard is it for you to pa y for the very basics like food, housing, medical care, and heating? Not very hard 09/25/2021 PHQ-2 Answer Date Recorded PHQ-2 Total Score (If total score is 3 or more points, staff should administer the PHQ-9) 0 04/05/2024 [facility] - Occupational Stress Questionnaire Answer Date Recorded Do you feel stress - tense, restless, nervous, or anxious, or unable to sleep at night because your mind is troubled all the time - these days? Not at all 09/25/2021 Exercise Vital Sign Answer Date Recorde d On average, how many days pe r week do you engage in moderate to strenuous exercise (like a brisk walk)? 2 days Minutes of Exercise per Session Not on file 09/25/2021 Hunger Vital Sign Answer Date Recorded Within the past 12 months, y ou worried that your food would run out before you got the money to buy more. Never true 09/26/19 22 Within the past 12 months, t he food you bought just didn't last and you didn't have money to get more. Never true 09/25/2021 PRAPARE - Transportation Answer Date Re corded Lack of Transportation (Medical) Not on file 09/25/2021 In the past 12 months, has l ack of transportation kept you from meetings, work, or from getting things needed for daily living? No 09/25/2021 Sex and Gender Information Value Date Recorded Sex Assigned at Not on file Legal Sex Male 10:52 AM SUPERVISOR PLATE PASTING Gender Identity Not on file Sexual Orientation Not on file documented as of this encounter Last Filed Vital Signs Vital Sign Reading Time Taken Comments Blood Pressure 132/80 05/31/2024 3:47 PM SUPERVISOR PLATE PASTING Pulse 102 05/31/2024 4:17 PM SUPERVISOR PLATE PASTING Temperature 38.4 ??C (101.2 ??F) 05/31/2024 3:[address] Respiratory Rate 22 05/31/2024 4:17 PM SUPERVISOR PLATE PASTING Oxygen Saturation 97% 05/31/2024 4:17 PM SUPERVISOR PLATE PASTING Inhaled Oxygen Concentration - - Weight 103.4 kg (228 lb) 05/31/2024 3:47 PM SUPERVISOR PLATE PASTING Height - - Body Mass Index 32.71 05/26/2024 2:05 PM SUPERVISOR PLATE PASTING documented in this encounter Patient Instructions * Patient Instructions* Meryl Cuadra, SLAB DEPILER OPERATOR - 05/31/2024 3:45 PM SUPERVISOR PLATE PASTING Take full course of antibiotics as prescribed. Take these with food. Albuterol inhaler as prescribed for shortness of breath, cough, or wheezing. Use you albuterol inhaler or nebulizer every 4 hours for the next 48 hours, then every 4-6 hours as needed. If inhaler is needed more often, you need to go to an ER. Avoid irritants such as cigarette smoke, pollen, dust, etc as this will aggravate cough. Suck on cough drops or hard candies to soothe a dry or sore throat. Cough drops won't stop your cough, but they may make your throat feel better. Over the counter loratadine (Claritin) or cetirizine (Zyrtec) to reduce secretions. Mucinex to thin secretions Breathe moist air from a humidifier, a hot shower, or a sink filled with hot water. The heat and moisture can help keep mucus in your airways moist so you can cough it out easily. Use nonprescription medicine, such as acetaminophen, ibuprofen, or aspirin, to relieve fever and body aches. Don't give aspirin to anyone younger than age 20. Rest more than usual. Drink plenty of fluids so that you do not become dehydrated and to keep mucous thin. Use an rwga-xnb-ejupzqu cough medicine such as Delsym or Robitussin. (Cough medicines may not be safe for young children or for people who have certain health problems.) Cough suppressants may help you to stop coughing. Expectorants, such as Mucinex, can help you bring up mucus when you cough. Follow up with primary care physician in 1 week, or sooner if symptoms worsen. GO TO ER WITH ANY WORSENING OF SYMPTOMS INCLUDING, BUT NOT LIMITED TO: SUDDEN HIGH FEVER, DIFFICULTY BREATHING OR CATCHING YOUR BREATH, OR SHORTNESS OF BREATH. RVISOR PLATE PASTING * Attachments The following attachments cannot be sent through Care Everywhere. * Acute Cough (Observer Helper) (Romanian) documented in this encounter Ordered Prescriptions Prescription Sig Dispense Quantity Refills Last Filled Start Date End Date azithromycin (ZITHROMAX) 250 mg tabletIndications: Cough, unspecified type,History of COPD Take 2 tablets the first day, then 1 tablet daily for 4 days. 6 tablet 05/31/2024 documented in this encounter Progress Notes * Meryl Cuadra NP - 05/31/2024 3:45 PM CST Images from the original note were not included. Patient ID: Zelalem Sanchez is a 69 y.o. male followed by Barry Sahu MD Chief Complaint Patient presents with Cough Cough and chills started yesterday Patient presents to the clinic with reports of cough, fever, and chills that started yesterday. Denies chest pain, dizziness, body aches, and difficulty breathing. He has taken no OTC medications forhis symptoms. Patient reports a history of smoking and COPD. Patient reports positive exposures to influenza from his family. Review of Systems Constitutional: Positive for chills and fever. Negative for fatigue. HENT: Positive for congestion. Negative for ear pain, postnasal drip, rhinorrhea, sinus pressure and sore throat. Respiratory: Positive for cough. Negative for shortness of breath and wheezing. Cardiovascular: Negative for chest pain. Gastrointestinal: Negative for nausea. Musculoskeletal: Negative for myalgias. Neurological: Negative for headaches. Vitals: 05/31/24 1547 05/31/24 1559 05/31/24 1617 BP: 132/80 Pulse: 92 98 102 Resp: (!) 32 26 22 Temp: (!) 38.4 ??C (101.2 ??F) SpO2: 92% 94% 97% Weight: 103.4 kg (228 lb) Recent Results (from the past 24 hours) POC Influenza A/B, COVID-19 antigen Collection Time: 05/31/24 4:08 PM Result Value Ref Range Influenza A Ag, POC Negative Negative Influenza B Ag, POC Negative Negative COVID-19 Ag POC Presumptive Negative Presumptive Negative, Invalid Physical Exam Vitals reviewed. Constitutional: General: He is not in acute distress. Appearance: Normal appearance. He is not ill-appearing. HENT: Head: Normocephalic. Right Ear: Tympanic membrane, ear canal and external ear normal. No middle ear effusion. Tympanic membrane is not erythematous or bulging. Left Ear: Tympanic membrane, ear canal and external ear normal. No middle ear effusion. Tympanic membrane is not erythematous or bulging. Nose: Congestion present. No rhinorrhea. Mouth/Throat: Lips: [place]. Mouth: Mucous membranes are moist. Pharynx: Uvula midline. No pharyngeal swelling, oropharyngeal exudate or posterior oropharyngeal erythema. Cardiovascular: Rate and Rhythm: Normal rate and regular rhythm. Pulmonary: Effort: Pulmonary effort is normal. No respiratory distress. Breath sounds: Examination of the right-lower field reveals wheezing. Examination of the left-lowerfield reveals wheezing. Decreased breath sounds and wheezing present. Comments: AFTER neb: Lung sound less diminished and no wheezing heard. Patient verbalizes that he feels like he is breathing better. Lymphadenopathy: Cervical: No cervical adenopathy. Skin: General: Skin is warm. Neurological: Mental Status: He is oriented to person, place, and time. Psychiatric: Behavior: Behavior is cooperative. Diagnoses and all orders for this visit: Cough, unspecified type (Primary) - POC Influenza A/B, COVID-19 antigen - albuterol 2.5 mg /3 mL (0.083 %) nebulizer solution 2.5 mg - azithromycin (ZITHROMAX) 250 mg tablet; Take 2 tablets the first day, then 1 tablet daily for 4 days. - Influenza A/B, RSV, and COVID-19 PCR Nasopharyngeal; Future Exposure to influenza - Influenza A/B, RSV, and COVID-19 PCR Nasopharyngeal; Future History of COPD - azithromycin (ZITHROMAX) 250 mg tablet; Take 2 tablets the first day, then 1 tablet daily for 4 days. Wheezing - albuterol 2.5 mg /3 mL (0.083 %) nebulizer solution 2.5 mg Orders Placed This Encounter Procedures Influenza A/B, RSV, and COVID-19 PCR Nasopharyngeal Standing Status: Future Standing Expiration Date: 05/31/2025 Order Specific Question: Is the Patient experiencing symptoms consistent with COVID? Answer: Yes POC Influenza A/B, COVID-19 antigen Order Specific Question: Is the Patient experiencing symptoms consistent with COVID? Answer: Yes Assessment/Plan # acute cough/exposure to influenza/Hx COPD --Breathing treatment given in office --Rapid flu and COVID negative, PCR sent --Given history of COPD will start azithromycin. --recommended to continue cold/sinus medications and sinus rinse. --ED presentation with one or more of the following symptoms: fever uncontrolled with antipyretics,shortness of breath, chest discomfort, uncontrolled n/v/d --f/u with PCP in 5-7 days if symptoms do not improve/worsen Disposition Treatment plan including expectations, follow up, and return precautions discussed with patient/parent, verbalizes understanding. Medication dosage, use, and potential adverse reactions discussed with patient/parent. Advised to follow up with PCP if symptoms do not resolve as expected or sooner if condition worsens. Discussed Signs/symptoms warranting ER evaluation including worsening fever, increased shortness ofbreath, chest pain, severe N/V/D, or any other worrisome symptoms Patient and/or guardian was given an opportunity to ask questions, questions answered. Patient Education Take full course of antibiotics as prescribed. Take these with food. Albuterol inhaler as prescribed for shortness of breath, cough, or wheezing. Use you albuterol inhaler or nebulizer every 4 hours for the next 48 hours, then every 4-6 hours as needed. If inhaler is needed more often, you need to go to an ER. Avoid irritants such as cigarette smoke, pollen, dust, etc as this will aggravate cough. Suck on cough drops or hard candies to soothe a dry or sore throat. Cough drops won't stop your cough, but they may make your throat feel better. Over the counter loratadine (Claritin) or cetirizine (Zyrtec) to reduce secretions. Mucinex to thin secretions Breathe moist air from a humidifier, a hot shower, or a sink filled with hot water. The heat and moisture can help keep mucus in your airways moist so you can cough it out easily. Use nonprescription medicine, such as acetaminophen, ibuprofen, or aspirin, to relieve fever and body aches. Don't give aspirin to anyone younger than age 20. Rest more than usual. Drink plenty of fluids so that you do not become dehydrated and to keep mucous thin. Use an xcfs-xme-tppussr cough medicine such as Delsym or Robitussin. (Cough medicines may not be safe for young children or for people who have certain health problems.) Cough suppressants may help you to stop coughing. Expectorants, such as Mucinex, can help you bring up mucus when you cough. Follow up with primary care physician in 1 week, or sooner if symptoms worsen. GO TO ER WITH ANY WORSENING OF SYMPTOMS INCLUDING, BUT NOT LIMITED TO: SUDDEN HIGH FEVER, DIFFICULTY BREATHING OR CATCHING YOUR BREATH, OR SHORTNESS OF BREATH. Meryl Cuadra NP This office note has been partially dictated using Trulia software, and as a result portions of the record may have been created with this software. Occasional wrong-word or '[id number]' substitutions may have occurred due to the inherent limitations of voice recognition software. Read the chartcarefully and recognize, using context, where substitutions have occurred. RVISOR PLATE PASTING RVISOR PLATE PASTING documented in this encounter Miscellaneous Notes * Addendum Note - Neema Lu LPN - 05/31/2024 3:45 PM CSTAddended by: NEEMA LU on: 05/31/2024 04:34 PM Modules accepted: Orders RVISOR PLATE PASTING documented in this encounter Plan of Treatment Scheduled Orders Name Type Priority Associated Diagnoses Orde r Schedule Influenza A/B, RSV, and COVID-19 PCR Nasopharyngeal Microbiology Routine Cough, unspecified type Exposure to influenza Expected: 06/03/2024, Expires: 05/31/2025 documented as of this encounter Procedures Procedure Name Priority Date/Time Associated Diagnosis Comments POC INFLUENZA A/B, COVID-19 ANTIGEN Routine 05/31/2024 4:08 PM SUPERVISOR PLATE PASTING Cough, unspecified type documented in this encounter Results * POC Influenza A/B, COVID-19 antigen (05/31/2024 4:08 PM SUPERVISOR PLATE PASTING) Influenza A Ag, POC Negative Negative [facility] Influenza B Ag, POC Negative Negative [facility] COVID-19 Ag POC Presumptive Negative Presumptive Negative, Invalid [facility] Nasal 05/31/2024 4:08 PM SUPERVISOR PLATE PASTING Meryl Cuadra NP POINT OF CARE TEST ORDERABLES Final Result Performing Organization Address City/State/[facility] Co de Phone Number [facility] [address] [place] [address], [facility] documented in this encounter Visit Diagnoses Diagnosis Cough, unspecified type- Primary Exposure to influenza Contact with or exposure to other viral diseases History of COPD Wheezing documented in this encounter Administered Medications Inactive Administered Medications - up to 3 most recent administrations Medication Order MAR Action Action Date Dose Rate Site albuterol 2.5 mg /3 mL (0.083 %) nebulizer solution 2.5 mg 2.5 mg, nebulization, Once, On Wed05/31/24 at 1630, For 1 doseIndications:Cough, unspecified type,Wheezing Given 05/31/2024 4:01 PM SUPERVISOR PLATE PASTING 2.5 mg documented in this encounter Orders Medications Ordered That Rubén ht Not Have Been Administered Count Last Ordered Date First Ordered Date albuterol 2.5 mg /3 mL (0.08 3 %) nebulizer solution 2.5 mg 1 05/31/2024 documented in this encounter Additional Health Concerns Infection Onset Date Last Indicated Resolved Time COVID: Suspected 05/31/2024 05/31/2024 05/31/2024 4:09 PM SUPERVISOR PLATE PASTING COVID: Suspected 05/31/2024 05/31/2024 documented as of this encounter Care Teams Highway Maintenance Technician Relationship Specialty Start Date End Date Barry Sahu MD [address] [place] [address] PCP - General Family Medicine 09/22/21 Trae Bhagat MD [address] [place] [address] Referring Physician Gastroenterology 09/23/21 Lavell Solis MD [address] [address] Consulting Physician Urology 09/25/21 Jeferson Espinosa MD [address] [place] [id number] Referring Physician Vascular Surgery 09/25/21 Teresa Berg Dental Tanyard Worker 09/25/21 documented as of this encounter
--- OUTSIDE RECORDS SUMMARY | 2024-05-31 19:57 | XMS_ITS | Clinical Summary ---
Author Organization [facility] Address [facility] [place] [address] [place] [address] Care Team Providers Care Urban Gardening Specialist Name Role Phone Barry Sahu MD Primary Care Provider [phone] Allergies No known active allergies Medications albuterol sulfate HFA 108 (90 Base) MCG/ACT inhaler INHALE 2 PUFFS BY MOUTH EVERY 4 TO 6 HOURS NEEDED FOR SHORTNESS OF BREATH OR WHEEZING 3 Active aspirin 325 MG tablet Take 1 tablet (325 mg total) by mouth daily. Active levothyroxine (SYNTHROID) 150 MCG tablet Take 1 tablet (150 mcg total) by mouth daily. 3 Active finasteride (PROSCAR) 5 MG tablet Take 1 tablet (5 mg total) by mouth daily. 3 Active MYRBETRIQ 25 MG 24 hr tablet Take 1 tablet (25 mg total) by mouth daily. 3 Active sertraline (ZOLOFT) 50 MG tablet Take 1 tablet (50 mg total) by mouth nightly. 3 Active simvastatin (ZOCOR) 10 MG tablet Take 1 tablet (10 mg total) by mouth nightly at bedtime. 3 Active tamsulosin (FLOMAX) 0.4 MG Cap Take 1 capsule (0.4 mg total) by mouth daily. 7 Active traMADol (ULTRAM) 50 MG tablet TAKE 1 TABLET ORAL ROUTE EVERY 6 HOURS NEEDED 3 Active Cyanocobalamin (VITAMIN B-12) 50 MCG Tab Take 50 mcg by mouth daily. Active fluticasone-piedad meterol (ADVAIR DISKUS) 250-50 MCG/ACT inhaler Inhale 1 puff into the lungs 2 (two) times daily. 14 each 3 Active pantoprazole EC (PROTONIX) 40 MG tablet Take 1 tablet (40 mg total) by mouth daily. 30 tablet Active tiotropium (SPIRIVA RESPIMAT) 2.5 MCG/ACT inhaler (SPIRIVA RESPIMAT) Inhale 2 puffs into the lungs daily. Please provide assembled. 4 g 3 Active Active Problems Problem Noted Date Diagnosed Date TIA (transient ischemic attack) 02/12/2023 Family History Medical History Relation Comments Hypertension Father Hypertension Mother Stroke Mother Relation Status Comments Father Mother Social History Tobacco Use Types Packs/Day Years Used Date Smoking Tobacco: Every Day Cigarettes 1.5 45 Smokeless Tobacco: Never Tobacco Cessation:Ready to Q uit: Not Asked; Counseling Given: Not Answered Alcohol Use Standard Drinks/Week Comments Yes 0 (1 standard drink = 0.6 oz pur e alcohol) social use Housing Stability Vital Sign Answer Thomas e Recorded In the last 12 months, was t here a time when you were not able to pay the mortgage or rent on time? No 02/12/2023 In the last 12 months, how many places have you lived? 1 02/12/2023 In the last 12 months, was t here a time when you did not have a steady place to sleep or slept in a care home (including now)? No 02/12/2023 Sex and Gender Information Value Date Recorded Sex Assigned at Not on file Legal Sex Male 7:41 PM CDT Gender Identity Not on file Sexual Orientation Not on file Last Filed Vital Signs Vital Sign Reading Time Taken Comments Blood Pressure 142/80 03/21/2023 10:53 PM IT SYSTEMS ADMINISTRATOR Pulse 75 03/21/2023 10:53 PM IT SYSTEMS ADMINISTRATOR Temperature 36.8 ??C (98.3 ??F) 03/21/2023 10:[address] Respiratory Rate 20 03/21/2023 10:53 PM IT SYSTEMS ADMINISTRATOR Oxygen Saturation 95% 03/21/2023 10:53 PM IT SYSTEMS ADMINISTRATOR Inhaled Oxygen Concentration - - Weight 99.8 kg (220 lb) 03/21/2023 9:19 PM IT SYSTEMS ADMINISTRATOR Height 172.7 cm (5' 8 ) 03/21/2023 9:19 PM IT SYSTEMS ADMINISTRATOR Body Mass Index 33.45 03/21/2023 9:19 PM IT SYSTEMS ADMINISTRATOR Plan of Treatment Health Maintenance Due Date Last Done Comments ASCVD Statin 1955 Colorectal Cancer Screening Colonoscopy (10 Years) 1955 Hepatitis C 01/07/1974 Zoster Vaccines (1 of 2) 01/07/2006 RSV Immunization or 60+ Years (1 - Risk 60-74 years 1-dose series) 2016 Annual Medicare Wellness Visit 01/07/2021 COVID-19 Vaccine (1 - season) 2024 Influenza Adult (#1) 2024 03/01/2019, 05/25/2018, 02/17/2016, Additional history exists ASCVD LDL 02/14/2024 02/13/2023 DTaP, Tdap and Td Vaccines (2 - Td or Tdap) 11/30/2030 11/30/2020 Pneumococcal Vaccine: 65+ Years Completed 03/18/2023, 09/23/2021, 05/27/2017 Meningococcal B Vaccine Aged Out No l onger eligible based on patient's age to complete this topic Meningococcal Vaccine Aged Out No jeffrey gilmer eligible based on patient's age to complete this topic RSV Immunizations Under 20 Months Aged Out No longer eligible based on patient's age to complete this topic Procedures Procedure Name Priority Date/Time Associated Diagnosis Comments LIPID PANEL Routine 02/13/2023 5:00 AM CDT from Last 3 Months or Most Recently Relevant to Health Maintenance Results * (ABNORMAL) LIPID PANEL (02/13/2023 5:00 AM CDT) CHOLESTEROL 146 <200.0 MG/DL 02/13/2023 5:55 AM CDT [facility] TRIGLYCERIDES 138 <150 MG/DL 02/13/2023 5:55 AM CDT [facility] HDL 32(L) >40.0 MG/DL 02/13/2023 5:55 AM CDT [facility] LDL (CALCULATED) 86 <100 MG/DL 02/13/2023 5:55 AM CDT [facility] NON HDL CHOLESTEROL 114 <130 MG/DL 02/13/2023 5:55 AM CDT [facility] CHOL/HDL RATIO 4.6(H) 0.0 - 4.5 02/13/2023 5:55 AM CDT [facility] VLDL CALCULATION 28 5 - 55 MG/DL 02/13/2023 5:55 AM T [facility] LIPID INTERPRETATION 02/13/2023 5:55 AM T [facility] () [facility] Comment: [facility] CONCENSUS REPORT RECOMMENDATIONS: ?ADULT ?CHILD ??LOW RISK: ?CHOLESTEROL ? <200 ? <170 ?TRIGLYCERIDE ?<150 ?--- ?HDL ? >=60 ?--- ?LDL ? <100 ? <110 ??BORDERLINE: ?CHOLESTEROL ? 200-239 ?? 170-199 ?TRIGLYCERIDE ?150-199 ? --- ?HDL ?40-59 ?--- ?LDL ? 100-159 ?? 110-129 ??HIGH RISK: ?CHOLESTEROL ? >=240 ?>=200 ?TRIGLYCERIDE ?>=200 ? --- ?HDL ?<40 ?--- ?LDL ? >=160 ?>=130 02/13/2023 5:00 AM CDT us Roe Davies MD LABORATORY Final Result [facility] [id number] [place] [id number], from Last 3 Months or Most Recently Relevant to Health Maintenance Insurance [facility] Advance Directives * Full Code (Latest Code Status on File) Date Activated Date Inactivated Comments 02/12/2023 6:43 PM 02/13/2023 1:03 PM Care Teams Urban Gardening Specialist Relationship Specialty Start Date End Date Barry Sahu MD [address] [facility] [address] [place] [address] PCP - General FAMILY PRACTICE 02/12/23
--- OUTSIDE RECORDS SUMMARY | 2024-05-31 19:57 | XMS_ITS | Clinical Summary ---
Author Organization [facility] [address] [place] [address] Care Team Providers Care Senior Qc Technician Name Role Phone Barry Sahu MD Primary Care Provider [phone] Trae Bhagat MD Unavailable [phone] Lavell Solis MD Unavailable [phone] Jeferson Espinosa MD Unavailable [phone] Allergies No known active allergies Medications aspirin 325 mg tablet Take 1 tablet (325 mg total) by mouth daily Active donepeziL (ARICEPT) 10 mg tablet Take 1 tablet (10 mg total) by mouth nightly 90 tablet 1 12/23/19 23 Active diphenhydrAMINE 25 mg capsule Take 1 tablet/capsule (25 mg total) by mouth nightly as needed for itching Active hydrOXYzine (ATARAX) 10 mg tablet Take 1 tablet (10 mg total) by mouth every 6 (six) hours as needed for itching 28 tablet 01/08/20 23 Active traMADoL (ULTRAM) 50 mg tablet Take 1 tablet (50 mg total) by mouth every 6 (six) hours as needed 01/21/20 23 Active imiquimod (ALDARA) 5 % cream Apply 1 packet topically nightly 03/16/20 23 Active cyanocobalamin (Vitamin B-12) 50 mcg tablet Take 1 tablet (50 mcg total) by mouth daily Active ibuprofen (ADVIL,MOTRIN) 800 mg tablet Take 1 tablet (800 mg total) by mouth every 6 (six) hours as needed Active cyclobenzaprine (FLEXERIL) 10 mg tablet Take 1 tablet (10 mg total) by mouth 3 (three) times a day as needed Active furosemide (LASIX) 20 mg tablet Take 1 tablet (20 mg total) by mouth daily Active pantoprazole DR (PROTONIX) 40 mg EC tablet TAKE 1 TABLET BY MOUTH EVERY DAY IN THE MORNING 90 tablet 4 06/14/19 24 Active metoprolol XL (TOPROL-XL) 25 mg extended release tablet TAKE 1 TABLET (25 MG TOTAL) BY MOUTH DAILY. 90 tablet 3 06/15/[address] (CYMBALTA) 30 mg capsule TAKE 1 CAPSULE BY MOUTH EVERY DAY AT BEDTIME FOR 30 DAYS Active polymyxin B-trimethoprim (POLYTRIM) ophthalmic solution Active lisinopril-hydr oCHLOROthiazide (ZESTORETIC) 20-25 mg per tablet TAKE 1 TABLET BY MOUTH EVERY DAY 90 tablet 3 09/14/19 24 Active finasteride (PROSCAR) 5 mg tablet TAKE 1 TABLET BY MOUTH EVERY DAY 90 tablet 1 09/17/19 24 Active hydrocortisone 2.5 % creamIndication s:itchy skin Apply topically 2 (two) times a day 30 g 11/23/19 24 Active albuterol HFA (PROVENTIL HFA,VENTOLIN HFA,PROAIR HFA) 90 mcg/actuation inhalerIndicati ons:Other specified respiratory conditions of INHALE 2 PUFFS INHALATION ROUTE EVERY 4 HOURS NEEDED 8.5 each 3 12/07/19 24 Active levothyroxine (SYNTHROID) 150 mcg tablet Take 1 tablet (150 mcg total) by mouth daily 100 tablet 1 02/18/20 24 Active tiotropium bromide (Spiriva Respimat) 2.5 mcg/actuation inhalerIndicati ons:Chronic obstructive pulmonary disease, unspecified COPD type (HCC) INHALE 2 PUFFS BY MOUTH DAILY 1 each 3 03/06/20 24 Active benzonatate (TESSALON) 200 mg capsuleIndicati ons:Lower respiratory infection (e.g., bronchitis, pneumonia, pneumonitis, pulmonitis) Take 1 capsule (200 mg total) by mouth 3 (three) times a day as needed for cough 30 capsule 03/24/20 24 Active fluticasone propion-salmete roL (Advair Diskus) 250-50 mcg/dose diskus inhalerIndicati ons:Bronchospas m Prevention with COPD Inhale 1 puff 2 (two) times a day Rinse mouth with water after use to reduce aftertaste and incidence of candidiasis. Do not swallow. 3 each 1 03/27/20 24 Active fluticasone propionate (FLONASE) 50 mcg/actuation nasal sprayIndication s:Allergic Rhinitis Administer 2 sprays into each nostril daily 3 each 4 04/05/20 24 Active azelastine (ASTELIN) 137 mcg (0.1 %) nasal sprayIndication s:Seasonal Allergic Rhinitis Administer 1 spray into each nostril 2 (two) times a day Use in each nostril as directed 30 mL 04/05/20 24 Active cetirizine (ZyrTEC) 10 mg tabletIndicatio ns:Allergic Rhinitis Take 1 tablet (10 mg total) by mouth daily as needed for allergies 90 tablet 04/05/20 24 025 Active tolterodine LA (DETROL LA) 4 mg 24 hr capsule TAKE 1 CAPSULE BY MOUTH EVERY DAY 90 capsule 1 04/10/20 24 Active sertraline (ZOLOFT) 50 mg tabletIndicatio ns:Memory problem,Recurre nt major depressive disorder, in partial remission (HCC) TAKE 1 TABLET BY MOUTH EVERY DAY AT NIGHT 100 tablet 04/10/20 24 Active tamsulosin (FLOMAX) 0.4 mg extended release capsule TAKE 1 CAPSULE BY MOUTH EVERY DAY 100 capsule 05/10/19 25 Active simvastatin (ZOCOR) 10 mg tablet TAKE 1 TABLET BY MOUTH EVERYDAY AT BEDTIME 100 tablet 05/23/19 25 Active azithromycin (ZITHROMAX) 250 mg tabletIndicatio ns:Cough, unspecified type,History of COPD Take 2 tablets the first day, then 1 tablet daily for 4 days. 6 tablet 05/31/19 25 Active tamsulosin (FLOMAX) 0.4 mg extended release capsule TAKE 1 CAPSULE BY MOUTH EVERY DAY 100 capsule 12/12/19 24 025 Discontinued simvastatin (ZOCOR) 10 mg tablet TAKE 1 TABLET BY MOUTH EVERYDAY AT BEDTIME 100 tablet 01/14/20 24 025 Discontinued Hospital, Clinic, or Other Facility Administered Medication Ordered Dose Route Frequency Start Date End Date Status albuterol 2.5 mg /3 mL (0.083 %) nebulizer solution 2.5 mgIndications:Cough, unspecified type,Wheezing 2.5 mg nebu Once 05/31/2024 05/31/2024 Ended Active Problems Problem Noted Date Diagnosed Date Vascular dementia without behavioral disturbance 08/31/2023 Aortic ectasia, abdominal (CMS/HCC) 08/31/2023 Closed fracture of proximal phalanx of great toe 03/31/2023 Vasovagal syncope 03/23/2023 Assessment & Plan (03/23/2023 10:12 AM AUDITOR): Pt did not have classic prodrome for vasovagal syncope episode, has history of right artery occlusion, TIA, HLD, COPD. Workup includes EKG to r/o cardiac causes for syncope -- on physical exam today RRR, no murmurs, S1S2 normal. Lungs CTAB - pt currently being treated for possible pneumonia. Episode of diarrhea prior - potential electrolyte abnormality - will get CMP. Stress related due to grandson in hospital also may be at play. EKG done in office revealed no ST changes, good R wave progression, normal axis, P waves, regular sinus rhythm, no changes from EKG taken in 2018 noted. Less artifact noted. Dehydration 03/23/2023 Assessment & Plan (03/23/2023 10:06 AM AUDITOR): Pt has history of not drinking sufficient water. GFR decreased with increase in Cr noted from ED visit 03/21 - cmp today - UA w reflx Cx Left lower lobe pneumonia 03/23/2023 Assessment & Plan (03/23/2023 10:08 AM AUDITOR): Pt presented to ED on 03/21. Imaging - CXR 03/21/23 at outside facility - Blunted left costophrenic angle and posterior sulcus on lateral view consistent with trace left pleural effusion. Pt given doxycycline 100 mg BID x 10 d (end date 03/31) and prednisone 20 mg bid x 5 d (end date 03/27) for SOB and possible underlying pneumonia. Continue Abx and prednisone until finish - CBC to assess leukocytosis Closed fracture of proximal phalanx of great toe 03/07/2023 Swelling of lower leg 02/26/2023 Pain in left foot 02/22/2023 TIA (transient ischemic attack) 02/12/2023 Smoker 11/11/2022 Localized edema 07/18/2022 Assessment & Plan (07/18/2022 10:38 AM CDT): BNP today (heart failure test) I will still want to get an echocardiogram, that has been ordered Furosemide x 1 week (water pill) Elevate legs three times per week, 20 minutes per Rest from chores, etc for the week Continuing sertraline Popliteal cyst, right 05/18/2022 Recurrent major depression 02/12/2022 Right carotid artery occlusion 10/10/2021 Assessment & Plan (03/20/2023 1:53 PM AUDITOR): MRI showed small areas of concern in the frontal (small stroke). He does have known carotid artery disease, for which he takes full dose aspirin etc. No large area seen on MRI, no masses or tumors Age-related MRI changes seen Assessment & Plan (11/11/2022 4:25 PM CDT): Patient with chronic asymptomatic occlusion of his right internal carotid artery. Widely patent left carotid artery. Will have patient follow-up in the office in 1 year with bilateral carotid artery duplex Assessment & Plan (10/01/2022 2:38 PM CDT): History of known a carotid artery stenosis. He denies any previous symptoms of stroke, amaurosis fugax or slurred speech. Previously patient of Dr. Villasenor and was last scanned year ago. Does not have any current imaging available. Plan: Continue risk factor modifications and compliance with medications. Follow-up in the next 2 weeks with a carotid duplex. Encounter for medical examination to establish c are 09/25/2021 Assessment & Plan (09/25/2021 12:47 PM CDT): A(n) initial Medicare Annual Wellness Visit has been performed today. Zelalem Sanchez is not up to date on screening tests. He is in need of AAA Screening, Lung cancer screening and Colon cancer screening- getting OSH records. He is not up to date on needed preventative vaccinations; He is in need of Zoster. BP is controlled Will repeat head CT first, make sure we don't have a more indolent process ongoing Neuro referral is planned as well, but will want to see which office has opening sooner Labs as ordered. Testing/screening as ordered Pneumococcal vaccination today. Advising to take levothyroxine first thing in the morning, and allow a 2 hour buffer between it and other medications. The BP med's may be taken at bedtime or earlier in the evening. The BP med's can be taken in the am after levothyroxine and its buffer Pantoprazole might work more optimally in the evening as well. Other specified hypothyroidism Hyperlipidemia Assessment & Plan (09/12/2022 12:51 PM CDT): Reviewed echo results; we are likely fine BP is controlled Continuing current regimen Gastroesophageal reflux disease without esophagi tis COPD (chronic obstructive pulmonary disease) Resolved Problems Problem Noted Date Diagnosed Date Resolved Date LESLYE (acute kidney injury) 03/23/2023 Assessment & Plan (03/23/2023 10:06 AM AUDITOR): Pt GFR currently 50s (see prior cmp from 03/21 ED visit) as well showed increased from baseline creatinine > 0.3 consistent with LESLYE. - cmp today - UA - CBC r/o infection (currently on doxy) Encounters Date Type Department Care Team Description 05/31/2024 3:45 PM AUDITOR Office Visit [facility] at [address] [phone] Meryl Cuadra NP Cough, unspecified type (Primary Dx); Exposure to influenza; History of COPD; Wheezing 05/26/2024 2:00 PM AUDITOR Office Visit [facility] Medical [facility] at [address] [phone] Meryl Cuadra NP Diarrhea, unspecified type (Primary Dx) 05/09/2024 [facility] Accountable Care Organization [address] [place] [id number] Alyssa Levin MA 04/20/2024 [facility] [address] [place] [id number] Josefa Castillo 04/05/2024 9:00 AM AUDITOR Office Visit [facility] Primary Care at [address] [phone] Faby Handley NP Upper respiratory infection, viral (Primary Dx); Post-nasal drainage 03/24/2024 12:15 PM AUDITOR Ancillary Procedure [facility] Imaging at [address] [phone] Acute cough 03/24/2024 12:00 PM AUDITOR Office Visit [facility] at [address] [phone] Meryl Cuadra NP Lower respiratory infection (e.g., bronchitis, pneumonia, pneumonitis, pulmonitis) (Primary Dx) 03/01/2024 9:52 AM CDT - 03/01/2024 11:59 PM CDT Hospital Encounter [address] [address] Acute nasopharyngitis Discharge Disposition: Discharge to home or self care 03/01/2024 9:45 AM CDT Office Visit [facility] at [address] [phone] Cristaino Alanis, BECCA Acute exacerbation of chronic obstructive pulmonary disease (COPD) (HCC) (Primary Dx); Acute nasopharyngitis from Last 3 Months Immunizations Name Administration Dates Next Due Influenza, Quad, Adjuvantate d, Intramuscular 02/18/2021 Influenza, Quadrivalent, Renetta l Culture-based MDCK, Preservative Free, Antibiotic Free, Intramuscular 05/25/2018 Influenza, Quadrivalent, Hig h Dose, Preservative Free, Intrr 03/18/2023,02/12/2022 Influenza, Quadrivalent, Spl it, Preservative Free, Intramuscular 03/01/2019,02/03/2016 Influenza, Trivalent, IM (MDV) 03/21/2013 Influenza, Trivalent, Preser vative Free, Intramuscular 02/17/2016 Influenza, Unspecified 01/07/2023(Deferr ed: Patient Refused),05/03/2022(Deferred: Patient Refused),03/17/2020(Deferred: Patient Refused) Pneumococcal Conjugate PCV 13 09/23/2021, 018 Pneumococcal Conjugate Pcv20 03/18/2023 Tdap 11/30/2020 Surgical History Surgery Date Site/Laterality Comments HERNIA REPAIR TONSILLECTOMY THROAT SURGERY Medical History Medical History Date Comments Vascular dementia (HCC) 2018 Hyperlipidemia Gastroesophageal reflux disease without esophagi tis COPD (chronic obstructive pulmonary disease) (HC C) Other specified hypothyroidism carotid stenosis 2019 100% stenosis Other specified hypothyroidism Hyperlipidemia Internal carotid artery occlusion, right 10/11/19 22 Social History Tobacco Use Types Packs/Day Years [...] staff should administer the PHQ-9) 0 04/05/2024 [facility] Occupat [facility] - Occupational Stress [...] on file Legal Sex Male 10:52 AM AUDITOR Gender Identity Not on file Sexual Orientation Not on file Obstetrics History Last Filed Vital Signs Vital Sign [place] Time Taken Comments Blood Pressure 132/80 05/31/2024 3:47 PM AUDITOR Pulse 102 05/31/2024 4:17 PM AUDITOR Temperature 38.4 ??C (101.2 ??F) 05/31/2024 3:[address] Respiratory Rate 22 05/31/2024 4:17 PM AUDITOR Oxygen Saturation 97% 05/31/2024 4:17 PM AUDITOR Inhaled Oxygen Concentration - - Weight 103.4 kg (228 lb) 05/31/2024 3:47 PM AUDITOR Height 177.8 cm (5' 10 ) 05/26/2024 2:05 PM AUDITOR Body Mass Index 32.71 05/26/2024 2:05 PM AUDITOR Plan of Treatment Health Maintenance Due Date Last Done Comments Lung Cancer Screening 01/07/2006 Zoster Vaccine (1 of 2) 01/07/2006 Colon Cancer Screening-Colonoscopy 07/02/2022 07/02/2017, 07/02/2017 Well Visit 65+ 09/23/2022 09/23/2021 Covid-19 Vaccine (2023-2 5 season) 2024 02/18/2021, 07/21/2020, 06/30/2020 Influenza Vaccine (#1) 2024 , 02/12/2022, 02/18/2021, Additional history exists Depression Screening 04/05/2025 04/05/2024, 08/31/2023, 06/01/2023, Additional history exists Fall Risk Assessment 04/05/2025 04/05/2024, 06/01/2023, 03/18/2023, Additional history exists Prostate Cancer Screening-PSA 08/30/2025, 12/28/2022, 03/12/2022, Additional history exists DTaP/Tdap/Td Vaccine (2 - Td or Tdap) 11/30/2030 11/30/2020 Colon Cancer Screening-CT Colonography Discontinued 07/02/2017, 07/02/2017 Colon Cancer Screening-DNA Stool Discontinued 07/03/19 18, 07/02/2017 Colon Cancer Screening-FIT Discontinued 07/02/2017, Colon Cancer Screening-Sigmoidoscopy Discontinued 07/02/2017, 07/02/2017 Hepatitis C Screening Completed 09/23/2021 Abdominal Aortic Aneurysm (A AA) Screen Completed 11/11/2022, 09/30/2022, 11/06/2021 Pneumococcal vaccine 65+ Completed 023, 09/23/2021, 05/27/2017 Hepatitis B Screening Completed 08/31/2023 Procedures Procedure Name Priority Date/Time Associated Diagnosis Comments POC INFLUENZA A/B, COVID-19 ANTIGEN Routine 05/31/2024 4:08 PM AUDITOR Cough, unspecified type XR CHEST PA LATERAL 2 VIEWS Schedule MAURICE, Read MAURICE (Appt Today, Awaiting Results) 03/24/2024 12:22 PM AUDITOR Acute cough POC INFLUENZA A/B, COVID-19 ANTIGEN Routine 03/24/2024 12:19 PM AUDITOR Lower respiratory infection (e.g., bronchitis, pneumonia, pneumonitis, pulmonitis) INFLUENZA A/B, RSV, AND COVID-19 PCR Routine 03/01/2024 9:52 AM CDT Acute nasopharyngitis PSA SCREEN Routine 08/31/2023 10:15 AM CDT Benign prostatic hyperplasia with post-void dribbling US ABDOMINAL AORTIC ANEURYSM SCREENING Schedule Routine, Read Routine (OP Routine) 11/06/2021 10:56 AM CDT Screening for abdominal aortic aneurysm HEPATITIS C ANTIBODY Routine 09/23/2021 2:51 PM CDT Need for hepatitis C screening test COLONOSCOPY Routine 07/02/2017 from Last 3 Months or Most Recently Relevant to Health Maintenance Results * POC Influenza A/B, COVID-19 antigen (05/31/2024 4:08 PM AUDITOR) Influenza A Ag, POC Negative Negative [facility] Influenza B Ag, POC Negative Negative [facility] COVID-19 Ag POC Presumptive Negative Presumptive Negative, Invalid [facility] Nasal 05/31/2024 4:08 PM AUDITOR Meryl Cuadra NP POINT OF CARE TEST ORDERABLES Final Result Performing Organization Address City/State/RUST Co de Phone Number [facility] [address] [place] [address] * XR Chest PA Lateral 2 Views (03/24/2024 12:22 PM AUDITOR) Anatomical Region Laterality Modality Body, Chest N/A Digital Radiogra phy 03/24/2024 12:4 0 PM AUDITOR Narrative 03/24/2024 12:41 PM AUDITOR EXAM DESCRIPTION: XR CHEST PA LATERAL 2 VIEWS REASON FOR STUDY: Pt complains of cough and runny nose since Wednesday. No surgery to heart, lungs, or chest. Pt is a smoker of 45 years, 2 PPD. History of COPD. ? FINDINGS: Posteroanterior and lateral images of the thorax compared to June 22, 2022 demonstrate a normal heart size, no focal consolidation and no pleural effusions. IMPRESSION: No acute radiographic abnormality. THIS IS AN ELECTRONICALLY VERIFIED FINAL REPORT 03/24/2024 12:41 PM - Electronically signed by ??Olayinka Sandhu M.D. SN D: ??03/24/2024 12:41 PM T: Report ID: [id number] [place] Location: ??[id number] Procedure Note Olayinka Sandhu MD - 03/24/2024 EXAM DESCRIPTION: XR CHEST PA LATERAL 2 VIEWS REASON FOR STUDY: Pt complains of cough and runny nose since Wednesday. No surgery to heart, lungs, or chest. Pt is a smoker of 45 years, 2 PPD.History of COPD. FINDINGS: Posteroanterior and lateral images of the thorax compared to June 22, 2022 demonstrate a normal heart size, no focal consolidationand no pleural effusions. IMPRESSION: No acute radiographic abnormality. THIS IS AN ELECTRONICALLY VERIFIED FINAL REPORT 03/24/2024 12:41 PM - Electronically signed by Olayinka Sandhu M.D. SN T: Report ID: [id number] [place] Location: [id number] us Meryl Cuadra NP IMG XR PROCEDURES Final Result * POC Influenza A/B, COVID-19 antigen (03/24/2024 12:19 PM AUDITOR) Influenza A Ag, POC Negative Negative [facility] Influenza B Ag, POC Negative Negative [facility] COVID-19 Ag POC Presumptive Negative Presumptive Negative, Invalid [facility] Nasopharyngeal 03/24/2024 12 :19 PM AUDITOR us Meryl Cuadra NP POINT OF CARE TEST ORDERABLES Final Result [facility] [address] [place] [address] * Influenza A/B, RSV, and COVID-19 PCR Nasopharyngeal (03/01/2024 9:52 AM CDT) [facility] COVID-19 RNA Negative Negative Influenza A RNA Negative Negative [facility] Influenza B RNA Negative Negative [facility] RSV RNA Negative Negative [facility] Comment: Interpretive data: Testing performed by [facility]. This test is performed using the [employer] Xpert Xpress CoV-2/Flu/RSV plus assay. This is a multiplex, real-time reverse transcriptase PCR assay intended for the qualitative detection of nucleic acid from SARS-CoV-2, influenza A, influenza B, and respiratory syncytial virus. This assay has been cleared by the [place] Food and Drug administration. The performance characteristics have been verified by the [facility]. ??Results must be considered in the clinical context, and a negative result does not rule out infection. Interpretive Data last revised 2023 Nasopharyngeal 03/01/2024 9: 52 AM CDT 03/01/2024 4:04 PM CDT [facility] - 03/01/2024 5:42 PM CDT Is the Patient experiencing symptoms consistent with COVID?->Yes Reason for testing?->Symptomatic Known exposure to confirmed or suspected COVID-19 case?->No Cristiano Alanis NP LAB MICROBIOLOGY - GENERAL ASHISH GUERRERO Final Result [facility] [id number] [place] [address] [place] * PSA screen (08/31/2023 10:15 AM CDT) [facility] PSA-Total 0.99 <=5.40 ng/mL Comment: Interpretive Data ?AGE ? SEX ?REFERENCE INTERVAL 0 minutes-150 years ?Female ?None 0 minutes-49 years ? Male ?None ? 50-59 years ? Male ?0-3.90 ? 60-69 years ? Male ?0-5.40 ? 70-79 years ? Male ?0-6.20 ? 80-150 years ?Male ?0-6.20 The Nicolas PSA Total assay procedure was used. Results from different manufacturers or methods may not be comparable. Serial testing should be performed using the same method. Current interpretive data last revised 21. Blood 08/31/2023 10:1 5 AM CDT 08/31/2023 3:46 PM CDT us Barry Sahu MD LAB BLOOD ORDERABLES Final Result Performing Organization Address City/State/RUST Co al Phone Number [facility] [phone] [place] [address] * US Abdominal Aortic Aneurysm Screening (11/06/2021 10:56 AM CDT) Anatomical Region Laterality Modality Abdomen Ultrasound 11/06/2021 11:0 2 AM CDT Narrative 11/06/2021 11:04 AM CDT EXAM DESCRIPTION: ?? US ABDOMINAL AORTIC ANEURYSM SCREENING REASON FOR STUDY: ?? AAA screening, smoking history (Age => 51y) ?? TECHNIQUE: Grayscale images acquired of the aorta and stored on PACS. Selected color Doppler and spectral images recorded. COMPARISON: ?? None FINDINGS: There are mild atherosclerotic changes abdominal aorta without definite sonographic evidence of abdominal aortic aneurysm. AORTIC CALIBER MAXIMAL PROXIMAL: ?? 2.5 x 2.6 ??cm. MID: ?? 1.9 x 2.0 ??cm. DISTAL: ?? 1.5 x 1.5 ??cm. ILIAC DIAMETER RIGHT: ?? 1.2 ??cm. LEFT: ?? 1.2 ??cm. OTHER: ?? No other significant finding. IMPRESSION: ?? 1. ?? Suboptimal exam secondary to patient's body habitus. 2. ?? Mild atherosclerotic changes abdominal aorta without definite sonographic evidence of abdominal aortic aneurysm. REFERENCE: Please see below follow up recommendations for abdominal aortic aneurysm surveillance per Society for Vascular Surgery Guidelines: < 2.6 cm No follow up necessary 2.62.9 cm Recommended ultrasound follow up every 5 years 3.0-3.4 cm Recommended ultrasound follow up every 3 years 3.5-3.9 cm Recommended ultrasound follow up every 12 months 4.0-4.9 cm Recommended ultrasound follow up every 12 months, vascular surgery consult 5.0-5.4 cm Recommended ultrasound follow up every 6 months, vascular surgery consult >= 5.5 cm Referral to vascular surgeon Based upon Society for Vascular Surgery Guidelines: J Vasc Surgery 2008 50: [id number]; updated May 2017 J Vasc Surgery 67:277 THIS IS AN ELECTRONICALLY VERIFIED FINAL REPORT 11/06/2021 11:04 AM - Electronically signed by ??Kristofer Jay D.O. PS: PS D: ??11/06/2021 11:04 AM T: ??11/06/2021 11:04 AM Report ID: [id number] [place] Location: ??[id number] Procedure Note Kristofer Jay, DO - 11/06/2021 EXAM DESCRIPTION: US ABDOMINAL AORTIC ANEURYSM SCREENING REASON FOR STUDY: AAA screening, smoking history (Age => 51y) TECHNIQUE: Grayscale images acquired of the aorta and stored on PACS.Selected color Doppler and spectral images recorded. COMPARISON: None FINDINGS: There are mild atherosclerotic changes abdominal aorta without definite sonographic evidence of abdominal aortic aneurysm. AORTIC CALIBER MAXIMAL PROXIMAL: 2.5 x 2.6 cm. MID: 1.9 x 2.0 cm. DISTAL: 1.5 x 1.5 cm. ILIAC DIAMETER RIGHT: 1.2 cm. LEFT: 1.2 cm. OTHER: No other significant finding. IMPRESSION: 1. Suboptimal exam secondary to patient's body habitus. 2. Mild atherosclerotic changes abdominal aorta without definitesonographic evidence of abdominal aortic aneurysm. REFERENCE: Please see below follow up recommendations for abdominal aortic aneurysm surveillance per Society for Vascular Surgery Guidelines: < 2.6 cm No follow up necessary 2.62.9 cm Recommended ultrasound follow up every 5 years 3.0-3.4 cm Recommended ultrasound follow up every 3 years 3.5-3.9 cm Recommended ultrasound follow up every 12 months 4.0-4.9 cm Recommended ultrasound follow up every 12 months, vascularsurgery consult 5.0-5.4 cm Recommended ultrasound follow up every 6 months, vascularsurgery consult >= 5.5 cm Referral to vascular surgeon Based upon Society for Vascular Surgery Guidelines: J Vasc Surgery 2009Oct 50: [id number]; updated May 2017 J Vasc Surgery 67:277 THIS IS AN ELECTRONICALLY VERIFIED FINAL REPORT 11/06/2021 11:04 AM - Electronically signed by Kristofer Jay D.O. PS: PS Report ID: [id number] Reading Location: [place] [address] [facility] Barry Sahu MD IMG US PROCEDURES Final Res ult * Hepatitis C antibody (09/23/2021 2:51 PM CDT) Hep C Ab Nonreactive Nonreactive EILEEN RAMSEY Comment: Interpretive Data Nonreactive: Antibodies to HCV not detected. Does NOT exclude the possibility of recent exposure to HCV. Equivocal: Equivocal for HCV antibodies. Supplemental molecular testing will be automatically performed to determine infection status in accordance with current CDC screening recommendations. ?? Reactive: Positive for HCV antibodies. ??This may represent current or past HCV infection. Supplemental molecular testing will be automatically performed to determine ??current infection status in accordance with current CDC screening recommendations. Interpretive data was last revised on 2019. Blood 09/23/2021 2:51 PM CDT 09/23/2021 8:[address] [facility] Barry Sahu MD LAB MICROBIOLOGY - GENERAL ORDERABLES Final Result EILEEN RAMSEY [address] [place] [address] * HM COLONOSCOPY (07/02/2017) Result [facility] Historical Provider HEALTH MAINTENANCE Final Result from Last 3 Months or Most Recently Relevant to Health Maintenance Additional Health Concerns Infection Onset Date Last Indicated COVID: Suspected 05/31/2024 05/31/2024 Insurance MEDICARE SOLUTIONS MEDICARE SOLUTIONS Member Subscriber Plan / Payer ( fective 2022-Present) Name:Zelalem Sanchez Relation to Subscriber:Self Name:Zelalem Sanchez Payer ID:[id number] (NAIC) Type:[facility] MEDICARE Address: [place] [phone] Care Teams Senior Qc Technician Relationship Specialty Start Date End Date Barry Sahu MD [address] [place] [address] PCP - General Family Medicine 09/22/21 Trae Bhagat MD [address] [facility] [address] [place] [address] Referring Physician Gastroenterology 09/23/21 Lavell Solis MD [address] [place] [address] Consulting Physician Urology 09/25/21 Jeferson Espinosa MD [address] [place] [address] Referring Physician Vascular Surgery 09/25/21 Teresa Berg Dental Assistant Professor Of Economics 09/25/21
--- OUTSIDE RECORDS SUMMARY | 2024-05-31 19:57 | XMS_ITS | Referral Summary ---
Author Organization [facility] [address] Address [address] [place] [id number] Care Team Providers Care Executive Sales Manager Name Role Phone Barry Sahu MD Primary Care Provider [phone] Trae Bhagat MD Unavailable [phone] Lavell Solis MD Unavailable [phone] Jeferson Espinosa MD Unavailable [phone] Encounters Date Type Department Care Team Description 05/31/2024 3:45 PM LIFE ENRICHMENT MANAGER Office Visit [employer] [facility] at [address] [phone] Meryl Cuadra NP Cough, unspecified type (Primary Dx); Exposure to influenza; History of COPD; Wheezing 05/26/2024 2:00 PM LIFE ENRICHMENT MANAGER Office Visit [facility] Con[facility]ient Care at [address] [phone] Meryl Cuadra NP Diarrhea, unspecified type (Primary Dx) 05/09/[address] [facility] Quality [employer] Accountable Care Organization [address] [id number] Alyssa Levin MA 04/20/2024 [facility] Care Organization [address] [place] [address] Josefa Castillo 04/05/2024 9:00 AM LIFE ENRICHMENT MANAGER Office Visit [facility] Primary Care at [address] [phone] Faby Handley NP Upper respiratory infection, viral (Primary Dx); Post-nasal drainage 03/24/2024 12:15 PM LIFE ENRICHMENT MANAGER Ancillary Procedure [facility] Imaging at [address] [phone] Acute cough 03/24/2024 12:00 PM LIFE ENRICHMENT MANAGER Office Visit [facility] Convenient Care at [address] [phone] Meryl Cuadra NP Lower respiratory infection (e.g., bronchitis, pneumonia, pneumonitis, pulmonitis) (Primary Dx) 03/01/2024 9:52 AM CDT - 03/01/2024 11:59 PM CDT Hospital Encounter [place] [id number] Acute nasopharyngitis Discharge Disposition: Discharge to home or self care 03/01/2024 9:45 AM CDT Office Visit [facility] Con[facility]ient Care at [address] [phone] Cristiano Alanis NP Acute exacerbation of chronic obstructive pulmonary disease (COPD) (HCC) (Primary Dx); Acute nasopharyngitis from Last 3 Months Allergies No known active allergies Medications aspirin [...] 03/23/2023 Assessment & Plan (03/23/2023 10:12 AM LIFE ENRICHMENT MANAGER): Pt did not have classic prodrome for [...] 03/23/2023 Assessment & Plan (03/23/2023 10:06 AM LIFE ENRICHMENT MANAGER): Pt has history of not drinking sufficient water. GFR decreased with increase in Cr noted from ED visit 03/21 - cmp today - UA w reflx Cx Left lower lobe pneumonia 03/23/2023 Assessment & Plan (03/23/2023 10:08 AM LIFE ENRICHMENT MANAGER): Pt presented to ED on 03/21. Imaging [...] 10/10/2021 Assessment & Plan (03/20/2023 1:53 PM LIFE ENRICHMENT MANAGER): MRI showed small areas of concern in [...] 03/23/2023 Assessment & Plan (03/23/2023 10:06 AM LIFE ENRICHMENT MANAGER): Pt GFR currently 50s (see prior cmp from 03/21 ED visit) as well showed increased from baseline creatinine > 0.3 consistent with LESLYE. - cmp today - UA - CBC r/o infection (currently on doxy) Immunizations Name Administration Dates Next Due Influenza, [...] 018 Pneumococcal Conjugate Pcv20 03/18/2023 Tdap 11/30/2020 Social History Tobacco Use Types Packs/Day Years [...] staff should administer the PHQ-9) 0 04/05/2024 [facility] [place] [facility] Occupat ional Health - Occupational Stress [...] on file Legal Sex Male 10:52 AM LIFE ENRICHMENT MANAGER Gender Identity Not on file Sexual Orientation Not on file Last Filed Vital Signs Vital Sign Reading Time Taken Comments Blood Pressure 132/80 05/31/2024 3:47 PM LIFE ENRICHMENT MANAGER Pulse 102 05/31/2024 4:17 PM LIFE ENRICHMENT MANAGER Temperature 38.4 ??C (101.2 ??F) 05/31/2024 3:[address] Respiratory Rate 22 05/31/2024 4:17 PM LIFE ENRICHMENT MANAGER Oxygen Saturation 97% 05/31/2024 4:17 PM LIFE ENRICHMENT MANAGER Inhaled Oxygen Concentration - - Weight 103.4 kg (228 lb) 05/31/2024 3:47 PM LIFE ENRICHMENT MANAGER Height 177.8 cm (5' 10 ) 05/26/2024 2:05 PM LIFE ENRICHMENT MANAGER Body Mass Index 32.71 05/26/2024 2:05 PM LIFE ENRICHMENT MANAGER Plan of Treatment Not on file Procedures Procedure Name Priority Date/Time Associated Diagnosis Comments POC INFLUENZA A/B, COVID-19 ANTIGEN Routine 05/31/2024 4:08 PM LIFE ENRICHMENT MANAGER Cough, unspecified type XR CHEST PA LATERAL 2 VIEWS Schedule MAURICE, Read MAURICE (Appt Today, Awaiting Results) 03/24/2024 12:22 PM LIFE ENRICHMENT MANAGER Acute cough POC INFLUENZA A/B, COVID-19 ANTIGEN Routine 03/24/2024 12:19 PM LIFE ENRICHMENT MANAGER Lower respiratory infection (e.g., bronchitis, pneumonia, pneumonitis, [...] Influenza A/B, COVID-19 antigen (05/31/2024 4:08 PM LIFE ENRICHMENT MANAGER) Influenza A Ag, POC Negative Negative [facility] Influenza B Ag, POC Negative Negative [facility] COVID-19 Ag POC Presumptive Negative Presumptive Negative, Invalid [facility] Nasal 05/31/2024 4:08 PM LIFE ENRICHMENT MANAGER Meryl Cuadra NP POINT OF CARE TEST ORDERABLES Final Result Performing Organization Address City/State/[facility] Co de Phone Number [facility]W [address] [place] [address] * XR Chest PA Lateral 2 Views (03/24/2024 12:22 PM LIFE ENRICHMENT MANAGER) Anatomical Region Laterality Modality Body, Chest N/A Digital Radiogra phy 03/24/2024 12:4 0 PM LIFE ENRICHMENT MANAGER Narrative 03/24/2024 12:41 PM LIFE ENRICHMENT MANAGER EXAM DESCRIPTION: XR CHEST PA LATERAL 2 [...] D: ??03/24/2024 12:41 PM T: Report ID: [id number] Reading Location: ??[id number] Procedure Note Olayinka Sandhu MD - 03/24/2024 [...] Olayinka Sandhu M.D. SN T: Report ID: [id number] Reading Location: [id number] us Meryl Cuadra FUNCTIONAL SKILLS TUTOR IMG XR PROCEDURES Final Result * POC Influenza A/B, COVID-19 antigen (03/24/2024 12:19 PM LIFE ENRICHMENT MANAGER) Influenza A Ag, POC Negative Negative [facility] Influenza B Ag, POC Negative Negative [facility] COVID-19 Ag POC Presumptive Negative Presumptive Negative, Invalid [facility] Nasopharyngeal 03/24/2024 12 :19 PM LIFE ENRICHMENT MANAGER us Meryl Cuadra NP POINT OF CARE TEST ORDERABLES Final Result [facility] [address] [place] [address], [facility] * Influenza A/B, RSV, and COVID-19 PCR Nasopharyngeal (03/01/2024 9:52 AM CDT) [facility] COVID-19 RNA Negative Negative Influenza A RNA Negative Negative [facility] Influenza B RNA Negative Negative [facility] RSV RNA Negative Negative [facility] Comment: Interpretive data: Testing performed by [facility]. This test is performed using the [employer] Xpert Xpress CoV-2/Flu/RSV plus assay. This is a multiplex, real-time reverse transcriptase PCR assay intended for the qualitative detection of nucleic acid from SARS-CoV-2, influenza A, influenza B, and respiratory syncytial virus. This assay has been cleared by the [place] Food and Drug administration. The performance characteristics have been verified by the [facility]. ??Results must be considered in the clinical context, and a negative result does not rule out infection. Interpretive Data last revised 2023 Nasopharyngeal 03/01/2024 9: 52 AM CDT 03/01/2024 4:04 PM CDT Narrative [facility] - 03/01/2024 5:42 PM CDT Is the Patient experiencing symptoms consistent with COVID?->Yes Reason for testing?->Symptomatic Known exposure to confirmed or suspected COVID-19 case?->No Cristiano Alanis NP LAB MICROBIOLOGY - GENERAL ASHISH GUERRERO Final Result EILEEN [address] Department [place] [address] [place] * PSA screen (08/31/2023 10:15 AM CDT) [facility] PSA-Total 0.99 <=5.40 ng/mL Comment: Interpretive [...] BLOOD ORDERABLES Final Result Performing Organization Address City/State/[facility] [place] n[place] Phone Number EILEEN [address] [facility] Department [place] [address] * US Abdominal Aortic Aneurysm Screening (11/06/2021 [...] AM T: ??11/06/2021 11:04 AM Report ID: [id number] Reading Location: ??[id number] Procedure Note Kristofer Jay, DO - 11/06/2021 [...] Kristofer Jay D.O. PS: PS Report ID: [id number] Reading Location: [place] [address] Barry Sahu MD IMG US PROCEDURES Final [...] 2:51 PM CDT 09/23/2021 8:30 PM CDT Barry Sahu MD LAB MICROBIOLOGY - GENERAL ORDERABLES Final Result EILEEN [address] Department [place] [address] * HM COLONOSCOPY (07/02/2017) Historical Provider HEALTH MAINTENANCE Final Result from Last 3 Months or Most Recently Relevant to Health Maintenance Additional Health Concerns Infection Onset Date Last Indicated COVID: Suspected 05/31/2024 05/31/2024 Insurance MEDICARE SOLUTIONS MEDICARE SOLUTIONS Care Teams Executive Sales Manager Relationship Specialty Start Date End Date Barry Sahu MD [address] [place] [address] PCP - General Family Medicine 09/22/21 Trae Bhagat MD [address] [facility] [address] [place], [place] [id number] Referring Physician Gastroenterology 09/23/21 Lavell Solis MD [address] [id number] Consulting Physician Urology 09/25/21 Jeferson Espinosa MD [address] [place] [address] Referring Physician Vascular Surgery 09/25/21 Teresa Berg Dental Certified Driver Examiner 09/25/21
--- OUTSIDE RECORDS SUMMARY | 2024-05-31 19:57 | XMS_ITS | Clinical Summary ---
Author Organization [facility] Address [address] [place] [address] Care Team Providers Care Criminal Lawyer Name Role Phone Karen Desouza MD Primary Care Provider + Source Comments [facility],non-owned Affiliates and Associated Physician Practices is amultiple site organization consisting of ambulatory clinics and hospital sitesin [place], [place], [place]. This disclosure is being madepursuant to the Care Everywhere program and may not contain all information available regarding this patient. Last updated 18.[employer] [facility] Allergies No known active allergies Medications * [...] Active Active Problems No known active problems Family History Medical History Relation Name Comments Cancer Father lung, liver Relation Name Status Comments Father Social History Tobacco Use Types Packs/Day Years [...] Comments Blood Pressure 112/88 06/29/2014 8:32 AM METAL EXPEDITER Pulse 56 06/29/2014 8:33 AM METAL EXPEDITER Temperature 36.7 ??C (98 ??F) 06/29/2014 7:04 AM METAL EXPEDITER Respiratory Rate 18 06/29/2014 8:33 AM METAL EXPEDITER Oxygen Saturation 97% 06/29/2014 8:33 AM METAL EXPEDITER Inhaled Oxygen Concentration - - Weight 83.9 kg (185 lb) 06/29/2014 7:04 AM METAL EXPEDITER Height 177.8 cm (5' 10 ) 06/29/2014 7:04 AM METAL EXPEDITER Body Mass Index 26.54 06/29/2014 7:04 AM METAL EXPEDITER Plan of Treatment Health Maintenance Due Date Last Done Comments COLOGUARD (AGES 45-75) - COL ON CA SCREENING 1955 COLON MONITORING 1955 COLONOSCOPY - COLON CA SCREENING 1955 CT COLONOGRAPHY - COLON CA SCREENING 1955 Colorectal Cancer Screening 1955 FIT - COLON CA SCREENING 1955 FLEX SIG - COLON CA SCREENING 1955 LIPID TESTING 1955 HEPATITIS C SCREENING 01/03/1974 DTAP/TDAP/TD VACCINES (1 - Tdap) 01/07/1975 PNEUMOCOCCAL VACCINE 50+ (1 of 2 - PCV) 01/07/1975 ZOSTER VACCINE (1 of 2) 01/07/2006 AAA SCREENING 01/07/2021 COVID-19 VACCINE ( - 2023-2 5 season) 2024 INFLUENZA VACCINE (#1) 2024 DEPRESSION SCREENING 05/03/2024 MEDICARE AWV ? CALENDAR YEAR 2024 Respiratory Syncytial Virus (RSV) Vaccine Pt: or over 60 yrs (1 - 1-dose 75+ series) 01/07/2031 HEPATITIS B VACCINE Aged Out No longe r eligible based on patient's age to complete this topic HIB VACCINE Aged Out No longer eligi ble based on patient's age to complete this topic HPV VACCINE Aged Out No longer eligi ble based on patient's age to complete this topic MENINGOCOCCAL (Group B) VACCINE Aged Out No longer eligible based on patient's age to complete this topic MENINGOCOCCAL VACCINE Aged Out No jeffrey gilmer eligible based on patient's age to complete this topic Care Teams Criminal Lawyer Relationship Specialty Start Date End Date Karen Desouza MD [address] [facility] [address] [place] [address] PCP - General Family Medicine 06/29/14
--- OUTSIDE RECORDS SUMMARY | 2024-05-31 19:57 | XMS_ITS | Patient Health Summary ---
Author Organization [facility] Address [address] [place] [address] Care Team Providers Care Camelid Fiber Sorter Name Role Phone Karen Desouza MD Primary Care Provider + Note from [facility],non-owned Affiliates and Associated Physician Practices is amultiple site organization consisting of ambulatory clinics and hospital sitesin [place], [place], [place] and [place]. This disclosure is being madepursuant to the Care Everywhere program and may not contain all information available regarding this patient. Last updated 18.[facility] Allergies No known active allergies Medications * Be aware that medications may not be up to date on this document. Alwaysverify current medications with the patient. * levothyroxine (SYNTHROID) 200 MCG tablet Take 200 mcg by mouth daily before breakfast. * omeprazole (PRILOSEC) 20 MG capsule Take 20 mg by mouth daily before breakfast. * tamsulosin CR 24hr (FLOMAX) 0.4 MG capsule Take 0.4 mg by mouth once daily. Take 30 minutes after a meal at the same time each day. * metoprolol succinate XL 24hr (TOPROL XL) 25 MG tablet Take 25 mg by mouth once daily. Active Problems No known active problems Social [...] Comments Blood Pressure 112/88 06/29/2014 8:32 AM COLLECTIONS REP Pulse 56 06/29/2014 8:33 AM COLLECTIONS REP Temperature 36.7 ??C (98 ??F) 06/29/2014 7:04 AM COLLECTIONS REP Respiratory Rate 18 06/29/2014 8:33 AM COLLECTIONS REP Oxygen Saturation 97% 06/29/2014 8:33 AM COLLECTIONS REP Inhaled Oxygen Concentration - - Weight 83.9 kg (185 lb) 06/29/2014 7:04 AM COLLECTIONS REP Height 177.8 cm (5' 10 ) 06/29/2014 7:04 AM COLLECTIONS REP Body Mass Index 26.54 06/29/2014 7:04 AM COLLECTIONS REP Procedures * ESOPHAGOGASTRODUODENOSCOPY (EGD) BIOPSY(Performed 06/29/2014) Performed for Evangelista's esophagus * ESOPHAGOGASTRODUODENOSCOPY (EGD) DIAGNOSTIC(Performed 06/29/2014) Performed for Evangelista's esophagus * PATHOLOGY TISSUE EXAM (STL)(Performed 06/29/2014) * EGD(Performed 06/29/2014) Results * GROSS + MICRO EXAM (STL) (06/29/2014 7:56 AM COLLECTIONS REP) Case Report Surgical Pathology Report ? Case: [id number] ? Authorizing Provider: ??David Ramon MD ?Collected: ? 06/29/2014 07:56 AM ? Ordering Location: ? [facility] ?Received: ?06/29/2014 11:28 AM ? Pathologist: ? Azeb Santos MD ? Specimens: ?? A) - Esophagus, distal esophagus biopsy ? B) - Esophagus, proximal esophageal biopsy ? 06/30/2014 10:32 AM [facility] Final Diagnosis 1. 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 ??Esophagus, upper third, endoscopic biopsy: -- ??Gastric mucosa consistent with inlet patch -- ??No evidence of dysplasia or malignancy KL/vr 06/30/2014 10:32 AM [facility] Gross Description Received in formalin in a container labeled Zelalem Sanchez E., distal esophagus biopsy. The container holds multiple pink-martinez tissue fragments measuring 0.1 cm up to 0.3 cm in greatest dimension. The specimen is entirely submitted in cassette labeled A1. Container 2 is labeled proximal esophageal. The container holds three pink-martinez tissue fragments measuring 0.2 cm up to 0.4 cm in greatest dimension. The specimen is entirely submitted in cassette labeled B1. APRIL/marcy 06/30/2014 10:32 AM [facility] Microscopic Description Histologic sections of the esophageal biopsy show squamocolumnar junctional mucosa with reflux changes and intestinal metaplasia consistent with Evangelista's esophagus. An Alcian blue/PAS stain confirms the presence of intestinal metaplasia. There is no evidence of dysplasia or malignancy. Histologic sections of the upper third of the esophagus biopsy show gastric mucosa with mild chronic inflammation consistent with an inlet patch. A PAS/Alcian Blue stain is negative for intestinal metaplasia. There is no evidence of dysplasia or malignancy. KL/vr 06/30/2014 10:32 AM [facility] Pathology/Cytology REGION OF ESOPHAGUS / Unknown 06/29/2014 7:56 AM COLLECTIONS REP 06/29/2014 11:28 AM [facility] Comment:799.9 Miscellaneous samples (specimen) REGION OF ESOPHAGUS / Unknown 06/29/2014 8:01 AM COLLECTIONS REP 06/29/2014 11:28 AM COLLECTIONS REP Comment:799.9 David Ramon MD LAB - PATHOLOGY/C YTOLOGY ORDERABLES [facility] [address] [place] [address] * EGD (06/29/2014 7:38 AM COLLECTIONS REP) Report Endoscopy POC _ Patient Name: Zelalem Sanchez ?Procedure Date: 06/29/2014 7:38 AM ? Date of : 1955 ? Admit Type: Outpatient Age: 59 ? Gender: Male Attending MD: David Ramon MD _ Procedure: ? Upper GI endoscopy Indications: ? Exclusion of Evangelista's esophagus Providers: ? David Ramon MD (Doctor), Gloria Perez RN, ? Chata Bill, Personal Health Coach Referring MD: ?Karen Desouza MD (Referring MD) Medicines: ? See the Anesthesia note for documentation of the ? administered medications Complications: ? No immediate complications. _ Procedure: ? After obtaining informed consent, the endoscope was passed ? under direct vision. Throughout the procedure, the ? patient's blood pressure, pulse, and oxygen saturations ? were monitored continuously. The Endoscope was introduced ? through the mouth, and advanced to the second part of ? duodenum. The upper GI endoscopy was accomplished without ? difficulty. The patient tolerated the procedure well. ? Impression: ?- LA Grade A reflux esophagitis. Rule out Evangelista's ? esophagus. Biopsied. ? - Abnormal mucosa in the esophagus. Biopsied. ? - Normal stomach. ? - Normal examined duodenum. Findings: ? LA Grade A (one or more mucosal breaks less than 5 mm, not extending ? between tops of 2 mucosal folds) esophagitis was found 38 to 40 cm from ? the incisors. Biopsies were taken with a cold forceps for histology. ? Estimated blood loss was minimal. ? Localized mild mucosal abnormality ( 2-3 cm patch of ectopic mucosa) was ? found in the upper third of the esophagus. Biopsies were taken with a ? cold forceps for histology. Estimated blood loss was minimal. ? The entire examined stomach was normal. ? The examined duodenum was normal. _ Recommendation: ?- Discharge patient to home. ? - Resume previous diet. ? - Continue present medications. ? - Repeat the upper endoscopy for surveillance based on ? pathology results. ? - Follow an antireflux regimen. ? - Telephone my office for pathology results in 2 days. ? Procedure Code(s): ? --- Professional --- ? 08393, Esophagogastroduo denoscopy, flexible, transoral; with biopsy, ? single or multiple ? --- Technical --- ? 37365, Esophagogastroduo denoscopy, flexible, transoral; with biopsy, ? single or multiple Diagnosis Code(s): ? --- Professional --- ? 530.11, Reflux esophagitis ? 530.9, Unspecified disorder of esophagus ? --- Technical --- ? 530.11, Reflux esophagitis ? 530.9, Unspecified disorder of esophagus CPT copyright 2013 [employer]. All rights reserved. The codes documented in this report are preliminary and upon java jsf developer review may be revised to meet current compliance requirements. David Ramon MD 06/29/2014 8:09 AM Number of Addenda: 0 Note Initiated On: 06/29/2014 7:38 AM [facility] 06/29/2014 7:38 AM COLLECTIONS REP David Ramon MD GI PROCEDURE ORDE [facility] Care Teams Camelid Fiber Sorter Relationship Specialty Start Date End Date Karen Desouza MD [address] [place] [address] PCP - General Family Medicine 06/29/14
[2024-05-31 20:23] VITALS: BP 144/72; PULSE 96; RESP 20; TEMP 38.1; O2SAT 93
--- NOTE | 2024-05-31 20:23 | PC.NURSE ---
Pt's daughter called up to report that their household as well as patients all have influenza A. Reports that they dropped pt off to be seen, but has been disoriented and having labored breathing. Assured family that patient will be seen by intake/traige nurses and treated accordingly.
[2024-05-31 22:58] LABS: Influenza A QL RT-PCR Positive (Negative); Influenza B QL RT-PCR Negative (Negative); RSV RNA, RT-PCR Negative (Negative); SARS-CoV-2 RNA PCR Negative (Negative)
[2024-05-31 23:56] VITALS: BP 122/75; PULSE 94; RESP 18; TEMP 36.4; O2SAT 96
--- NOTE | 2024-06-01 00:26 | ED.URI ---
HPI - URI/Sore Throat General Chief Complaint: Upper Respiratory Infection Stated Complaint: flu-like symptoms Time Seen by Provider: 06/01/24 00:18 History of Present Illness HPI Narrative: 69-year-old male with a past medical history including COPD from smoking, hyperlipidemia, hypertension. Today patient presents to the emergency room with URI type symptoms. He has been having a cough, congestion and runny nose for a couple days. His grandson at home has influenza. Patient endorses some occasional difficulty in breathing that is responsive to his inhaler but as well as a concerned about his upper respiratory infection type symptoms. Denies any chest pain at rest or exertion, no difficulty breathing with exertion, no nausea, vomiting, headache, vision changes, abdominal pain, back pain. He has tried some Tylenol at home but no other treatments. But no fevers at home. Related Data Home Medications ?Medication ?Instructions ?Recorded ?Confirmed ?Last Taken ?Type aspirin 325 mg tablet 325 mg PO DAILY 06/23/19 09/19/21 Unknown History mirabegron 25 mg tablet,extended 25 mg PO DAILY 05/05/21 09/19/21 Unknown History release 24 hr (Myrbetriq) tamsulosin 0.4 mg capsule 0.4 mg PO DAILY 07/30/21 09/19/21 Unknown History benzonatate 100 mg capsule 100 mg PO TID 09/10/21 09/19/21 Unknown History Allergies Allergy/AdvReac Type Severity Reaction Status Date / Time venom-wasp Allergy Severe Swelling Verified 05/31/24 19:58 Review of Systems Review of Systems: As reviewed above in HPI [facility] Past Medical History Medical History History of esophageal dilatation (~2019) History of COVID-19 05/2021 Dyslipidemia Esophageal dilatation 2019 Tonsillectomy planned 1959 Benign prostatic hyperplasia Chronic obstructive pulmonary disease, unspecified DDD (degenerative disc disease), lumbar Essential (primary) hypertension Gastro-esophageal reflux disease without esophagitis Hypothyroidism, unspecified Low back pain at multiple sites Smoking greater than 40 pack years Vascular dementia without behavioral disturbance Surgical History Surgical History Hx of tonsillectomy (Unknown) H/O hernia repair 1989 Social History Social History Smoking packs per day: 1 Smoking cigarettes per day: 20.0 Years smoked: 50 Smoking pack-years: 50.00 Tobacco type: cigarettes Second hand tobacco smoke exposure: No Alcohol intake: current Substance use: never Living arrangements: with family Occupation/Education: other Additional occupation/education comments: disabled Gender identity (if verbalized by the patient): Male Spiritual care concerns: No Exam Narrative: GENERAL: [Well-appearing, well-nourished, and in no acute distress.] HEAD: [Normocephalic, atraumatic.] EYES: [PERRLA and EOMI.] ENT: Sounds congested, clear posterior oropharynx, moist mucous membranes NECK: Supple. CHEST: [Clear to auscultation. No respiratory distress.] No tachypnea or wheezing, no decreased air entry. HEART: [Regular rate and rhythm]. No murmur heard. [Normal peripheral pulses.] ABDOMEN: [Soft, nondistended], [nontender], [No rigidity or guarding] EXTREMITIES: Normal range of motion. [No edema.] SKIN: Warm, dry, no rash. NEURO: [No focal deficits]. Alert and oriented [x3.] PSYCH: [Normal mood and affect.] Course Vital Signs Vital signs: Vital Signs Temperature 38.1 C H 05/31/24 20:23 Pulse Rate 96 05/31/24 20:23 Respiratory Rate 20 05/31/24 20:23 Blood Pressure 144/72 H 05/31/24 20:23 Pulse Oximetry 93 05/31/24 20:23 Oxygen Delivery Room Air 05/31/24 20:23 Temperature 36.4 C L 05/31/24 23:56 Pulse Rate 94 05/31/24 23:56 Respiratory Rate 18 05/31/24 23:56 Blood Pressure 122/75 05/31/24 23:56 Pulse Oximetry 96 05/31/24 23:56 Oxygen Delivery Room Air 05/31/24 20:23 MDM - URI/Sore Throat MDM Narrative Medical decision making narrative: 69-year-old male with history of COPD, hypertension, presents to the emergency room with chief complaint of upper respiratory infection symptoms. He has had a cough, congestion, runny nose and subjective difficulty in breathing. He is resting comfortably on room air, no tachycardia, tachypnea, clear lung sounds throughout. No wheezing, rhonchi or rales. Vital signs show initial temperature 38.1? hernia but no associated tachycardia blood pressure concerns. He received Tylenol, Flonase and pseudoephedrine for his URI type symptoms. He did test positive for influenza. Chest x-ray was obtained to make sure there is no lower respiratory tract infection signs like a pneumonia. Patient will be able to be safely discharged home upon completion of workup. Chest x-ray was independently reviewed and shows no appreciable pneumonia, pneumothorax or consolidation. Confirmed by radiology read. Patient is safe and stable for discharge home at this time with instructions on management and return precautions. Medical Records Attestation: I reviewed the patient's medical records. Lab Data Attestation: I reviewed the patient's lab results. Labs: Lab Results 05/31/24 Range/Units 22:17 Influenza A (RT-PCR) Positive A (Negative) Influenza B (RT-PCR) Negative (Negative) RSV (RT-PCR) Negative (Negative) SARS-CoV-2 RNA (RT-PCR) Negative (Negative) Imaging Data Attestation: I personally reviewed and interpreted this imaging study as follows: My impression: Chest x-ray without pneumonia, pneumothorax or consolidation Discharge Plan Discharge Clinical Impression: Influenza A Patient Disposition: Home, Self-Care Condition: Stable Instructions: Antibiotic Form, Influenza (ED) Additional Instructions: Take Tylenol and ibuprofen for any fevers, [id number] flu medications will be appropriate, will send you home with some treatment regimen options. Return with any new or worsening concerns at any time. Patient Language: Ivorian Prescriptions: New guaifenesin [Mucinex] 1,200 mg tablet extended release 12hr 1,200 mg PO Q12H Qty: 20 0RF fluticasone propionate [Flonase Allergy Relief] 50 mcg/actuation spray,suspension 1 spray intranasal Q12H Qty: 16 0RF Rx Instructions: administer into each nostril loratadine [Claritin] 10 mg tablet 10 mg PO DAILY PRN (Reason: allergy symptoms) Qty: 20 0RF No Action aspirin 325 mg tablet 325 mg PO DAILY tamsulosin 0.4 mg capsule 0.4 mg PO DAILY Myrbetriq 25 mg tablet extended release 24 hr 25 mg PO DAILY albuterol sulfate [ProAir HFA] 90 mcg/actuation HFA aerosol inhaler 2 puff INHALATION Q4-6H PRN (Reason: shortness of breath or wheezing) Qty: 18 5RF benzonatate 100 mg capsule 100 mg PO TID cephalexin 500 mg capsule 500 mg PO Q12H 7 Days Qty: 14 0RF metoprolol succinate 25 mg tablet extended release 24 hr 25 mg PO DAILY Qty: 90 2RF fluticasone propion-salmeterol [Wixela Inhub] 250-50 mcg/dose blister with device 1 inh INHALATION BID Qty: 180 1RF levothyroxine 150 mcg tablet 150 mcg PO DAILY Qty: 90 1RF pantoprazole 40 mg tablet,delayed release (DR/EC) 40 mg PO QAM 30 Days Qty: 30 12RF lisinopril-hydrochlorothiazide 20-25 mg tablet 1 tablet PO DAILY Qty: 90 1RF finasteride 5 mg tablet 5 mg PO DAILY Qty: 90 1RF simvastatin 10 mg tablet 10 mg PO QHS Qty: 90 1RF Follow-up/Referrals: Luis Alberto,Barry Fiore MD [Primary Care Provider] - Time of Disposition: 02:03
[2024-06-01] MEDS: FLUTICASONE PROPIONATE 0.05% NA SPR 16 GM BTL (*BKC) 2 SPRAY NASAL (00:38)
[2024-06-01] MEDS: PSEUDOEPHEDRINE HCL 30 MG TABLET PO (00:38)
[2024-06-01] MEDS: ACETAMINOPHEN 500 MG TABLET 1000 MG PO (00:38)
[2024-06-01 01:10] VITALS: O2SAT 95
[2024-06-01 02:27] VITALS: BP 144/81; PULSE 95; RESP 15; O2SAT 95
== END 2024-06-01 02:29 | disposition home or self-care (01) ==
PROVIDERS: Physician Assistant; Emergency Provider Student in an Organized Health Care Education/Training Program; PCP Family Medicine
DX: J10.1 Influenza due to other identified influenza virus with other respiratory manifestations (principal); R91.1 Solitary pulmonary nodule; Z20.822 Contact with and (suspected) exposure to COVID-19; F01.50 Vascular dementia, unspecified severity, without behavioral disturbance, psychotic disturbance, mood disturbance, and anxiety; J44.9 Chronic obstructive pulmonary disease, unspecified; I10 Essential (primary) hypertension; E03.9 Hypothyroidism, unspecified; E78.5 Hyperlipidemia, unspecified; K21.9 Gastro-esophageal reflux disease without esophagitis; N40.0 Benign prostatic hyperplasia without lower urinary tract symptoms; F17.210 Nicotine dependence, cigarettes, uncomplicated; Z86.16 Personal history of COVID-19; Z79.82 Long term (current) use of aspirin; Z79.899 Other long term (current) drug therapy
CPT/HCPCS: 71045; 87637; 99283; A9270

== ENCOUNTER 2024-07-14 08:40 | Outpatient (CLI) | payer MEDICARE, SELFPAY ==
--- NOTE | ~2024-07-14 | CT_ITS ---
Clinical Indication: Pulmonary nodule CT Scan of the Chest with Contrast: Technique: Contiguous sections were acquired throughout the chest after intravenous administration of 100 cc of Omnipaque 350. Dose reduction technique was used on this scan by utilizing automated expos ure control and iterative reconstruction technique. The dose-length product (DLP) was 312.37 mGy-cm. COMPARISON: 09/02/2023 Findings: There is no evidence of any significant mediastinal, hilar or axillary lymphadenopathy. There is no f illing defect in the pulmonary arterial tree to suggest pulmonary embolus. There is no evidence of ao rtic dissection or aneurysm. There is no evidence of pleural or pericardial effusion. Stable 12 mm right upper lobe pulmonary nodule. Images through the upper abdomen reveal no abnormalities. Impression: Stable 12 mm right upper lobe pulmonary nodule. Reviewed, dictated and finalized at [facility]. Impression: Stable 12 mm right upper lobe pulmonary nodule.
--- OUTSIDE RECORDS SUMMARY | 2024-07-14 09:04 | XMS_ITS | Clinical Summary ---
Author Organization [facility] Address [address] [place] [address] Care Team Providers Care Supervisor Sound Technician Name Role Phone Barry Sahu MD Primary Care Provider [phone] Allergies No known active allergies Medications albuterol [...] place to sleep or slept in a penitentiary (including now)? No 02/12/2023 Sex and Gender Information Value Date Recorded Sex Assigned at Not on file Legal Sex Male 7:41 PM CDT Gender Identity Not on file Sexual Orientation Not on file Last Filed Vital Signs Vital Sign Reading Time Taken Comments Blood Pressure 142/80 03/21/2023 10:53 PM BUDGET ASSISTANT Pulse 75 03/21/2023 10:53 PM BUDGET ASSISTANT Temperature 36.8 C (98.3 F) 03/21/2023 10:53 PM BUDGET ASSISTANT Respiratory Rate 20 03/21/2023 10:53 PM BUDGET ASSISTANT Oxygen Saturation 95% 03/21/2023 10:53 PM BUDGET ASSISTANT Inhaled Oxygen Concentration - - Weight 99.8 kg (220 lb) 03/21/2023 9:19 PM BUDGET ASSISTANT Height 172.7 cm (5' 8 ) 03/21/2023 9:19 PM BUDGET ASSISTANT Body Mass Index 33.45 03/21/2023 9:19 PM BUDGET ASSISTANT Plan of Treatment Health Maintenance Due Date Last Done Comments ASCVD Statin 1955 Colorectal Cancer Screening Colonoscopy (10 Years) 1955 Hepatitis C 01/07/1974 Zoster Vaccines (1 of 2) 01/07/2006 RSV Immunization or 60+ Years (1 - Risk 60-74 years 1-dose series) 2016 Annual Medicare Wellness Visit 01/07/2021 COVID-19 Vaccine (1 - 2023- season) 2024 Influenza Adult (#1) 2024 03/01/2019, [...] 146 <200.0 MG/DL 02/13/2023 5:55 AM CDT [facility] TRIGLYCERIDES 138 <150 MG/DL 02/13/2023 5:55 AM CDT [facility] HDL 32(L) >40.0 MG/DL 02/13/2023 5:55 AM CDT [facility] LDL (CALCULATED) 86 <100 MG/DL 02/13/2023 5:55 AM CDT [facility] NON HDL CHOLESTEROL 114 <130 MG/DL 02/13/2023 5:55 AM CDT [facility] CHOL/HDL RATIO 4.6(H) 0.0 - 4.5 02/13/2023 5:55 AM CDT [facility] VLDL CALCULATION 28 5 - 55 MG/DL 02/13/2023 5:55 AM CDT [facility] LIPID INTERPRETATION 02/13/2023 5:55 AM CDT [facility] Comment: [facility] REPORT RECOMMENDATIONS: ADULT CHILD LOW RISK: CHOLESTEROL <200 <170 TRIGLYCERIDE <150 --- HDL >=60 --- LDL <100 <110 BORDERLINE: CHOLESTEROL 200-239 170-199 TRIGLYCERIDE 150-199 --- HDL 40-59 --- LDL 100-159 110-129 HIGH RISK: CHOLESTEROL >=240 >=200 TRIGLYCERIDE >=200 --- HDL <40 --- LDL >=160 >=130 02/13/2023 5:00 AM CDT Roe Davies MD LABORATORY Final Result [facility] [id number] [place] [address], from Last 3 Months or Most Recently Relevant to Health Maintenance Insurance [facility] Advance Directives * Full Code (Latest Code Status on File) Date Activated Date Inactivated Comments 02/12/2023 6:43 PM 02/13/2023 1:03 PM Care Teams Supervisor Sound Technician Relationship Specialty Start Date End Date Barry Sahu MD [address] [facility] [id number] [place] [address] PCP - General FAMILY PRACTICE 02/12/23
--- OUTSIDE RECORDS SUMMARY | 2024-07-14 09:05 | XMS_ITS | Referral Summary ---
Author Organization [facility] [address] Address [address] [place] [id number] Care Team Providers Care Accounts Adjustable Clerk Name Role Phone Barry Sahu MD Primary Care Provider [phone] Trae Bhagat MD Unavailable [phone] Lavell Solis MD Unavailable [phone] eJferson Espinosa MD Unavailable [phone] Encounters Date Type Department Care Team Description 06/23/2024 Results Follow-Up [facility] Medical [facility] Primary Care at [address] [phone] Pastora Cheney MA 06/13/2024 11:15 AM PUBLIC SERVICE DIRECTOR Ancillary Procedure [facility] Medical [facility] Imaging at [address] [phone] Pain in left foot 06/13/2024 10:45 AM PUBLIC SERVICE DIRECTOR Office Visit [facility] Medical [facility] Convenient Care at [address] [phone] Liss Deleon NP Pain in left foot (Primary Dx) 06/12/2024 Telephone [facility] Medical [facility] Primary Care at [address] [phone] Pastora Yanes MA 06/10/2024 Orders Only [facility] Medical [facility] Primary Care at [address] [phone] Barry Sahu MD 06/08/2024 11:19 AM PUBLIC SERVICE DIRECTOR - 06/08/2024 11:59 PM PUBLIC SERVICE DIRECTOR Hospital Encounter [address] [address] Other specified hypothyroidism; Benign prostatic hyperplasia with post-void dribbling; Mixed hyperlipidemia Discharge Disposition: Discharge to home or self care 06/08/2024 11:15 AM PUBLIC SERVICE DIRECTOR Lab [facility] at [address] [phone] Hyperlipidemia (Primary Dx) 06/08/2024 [facility] Quality [facility] Accountable Care Organization [address] [place] [id number] Josefa Castillo 06/08/2024 10:15 AM PUBLIC SERVICE DIRECTOR Office Visit [facility] Primary Care at [address] [phone] Barry Sahu MD Encounter for Medicare annual wellness exam (Primary Dx); Mixed hyperlipidemia; Other specified hypothyroidism; Vascular dementia without behavioral disturbance (HCC); Benign prostatic hyperplasia with post-void dribbling; Gastroesophageal reflux disease without esophagitis; Colon cancer screening; Esophageal stricture 06/01/2024 Orders Only [facility] Primary Care at [address] [phone] Barry Sahu MD Apical lung nodule (Primary Dx) 06/01/2024 Telephone [facility] Primary Care at [address] [phone] Barry Sahu MD 06/01/2024 Orders Only [facility] at [address] [phone] Meryl Cuadra NP Influenza A (Primary Dx) 05/31/2024 4:33 PM PUBLIC SERVICE DIRECTOR - 05/31/2024 11:59 PM PUBLIC SERVICE DIRECTOR Hospital Encounter [address] [address] Cough, unspecified type; Exposure to influenza Discharge Disposition: Discharge to home or self care 05/31/2024 3:45 PM PUBLIC SERVICE DIRECTOR Office Visit [facility] at [address] [phone] Meryl Cuadra NP Cough, unspecified type (Primary Dx); Exposure to influenza; History of COPD; Wheezing 05/26/2024 2:00 PM PUBLIC SERVICE DIRECTOR Office Visit [facility] at [address] [phone] Meryl Cuadra NP Diarrhea, unspecified type (Primary Dx) 05/09/2024 [facility] Quality [facility] Accountable Care Organization [address] [place] [phone] Alyssa Levin MA 04/20/2024 [facility] Quality [facility] Care Organization [address] [place] [phone] Josefa Castillo from Last 3 Months Allergies No known active allergies Medications aspirin 325 mg tablet Take 1 tablet (325 mg total) by mouth daily Active donepeziL (ARICEPT) 10 mg tablet Take 1 tablet (10 mg total) by mouth nightly 90 tablet 1 12/23/19 23 Active diphenhydrAMINE 25 mg capsule Take 1 tablet/capsule (25 mg total) by mouth nightly as needed for itching Active traMADoL (ULTRAM) 50 mg tablet Take [...] DAY AT BEDTIME FOR 30 DAYS Active lisinopril-hydr oCHLOROthiazide (ZESTORETIC) 20-25 mg per [...] NEEDED 8.5 each 3 12/07/19 24 Active Additional Information Patient not taking.Reported on 06/13/2024 levothyroxine (SYNTHROID) 150 mcg tablet Take 1 tablet (150 mcg total) by mouth daily 100 tablet 1 02/18/20 24 Active tiotropium bromide (Spiriva Respimat) 2.5 mcg/actuation inhalerIndicati ons:Chronic obstructive pulmonary disease, unspecified COPD type (HCC) INHALE 2 PUFFS BY MOUTH DAILY 1 each 3 03/06/20 24 Active fluticasone propion-salmete roL (Advair Diskus) 250-50 mcg/dose diskus inhalerIndicati ons:Bronchospas m Prevention with COPD Inhale 1 puff 2 (two) times a day Rinse mouth with water after use to reduce aftertaste and incidence of candidiasis. Do not swallow. 3 each 1 03/27/20 24 Active Additional Information Patient not taking.Reported on 06/13/2024 fluticasone propionate (FLONASE) 50 mcg/actuation nasal sprayIndication s:Allergic Rhinitis Administer 2 sprays into each nostril daily 3 each 4 04/05/20 24 Active tolterodine LA (DETROL LA) 4 mg 24 hr capsule TAKE 1 CAPSULE BY MOUTH EVERY DAY 90 capsule 1 04/10/20 24 Active sertraline (ZOLOFT) 50 mg tabletIndicatio ns:Memory problem,Recurre nt major depressive disorder, in partial remission TAKE 1 TABLET BY MOUTH EVERY DAY AT NIGHT 100 tablet 04/10/20 24 Active tamsulosin (FLOMAX) 0.4 mg extended release capsule TAKE 1 CAPSULE BY MOUTH EVERY DAY 100 capsule 05/10/19 25 Active Additional Information Patient not taking.Reported on 06/13/2024 azithromycin (ZITHROMAX) 250 mg tabletIndicatio ns:Cough, unspecified type,History of COPD Take 2 tablets the first day, then 1 tablet daily for 4 days. 6 tablet 05/31/19 25 Active Additional Information Patient not taking.Reported on 06/13/2024 loratadine (CLARITIN) 10 mg tablet TAKE 1 TABLET BY MOUTH EVERY DAY NEEDED FOR ALLERGY SYMPTOMS 06/01/19 25 Active cetirizine (ZyrTEC) 10 mg tabletIndicatio ns:Post-nasal drainage TAKE 1 TABLET BY MOUTH EVERY DAY NEEDED FOR ALLERGY 90 tablet 07/04/19 25 Active simvastatin (ZOCOR) 10 mg tablet TAKE 1 TABLET BY MOUTH EVERYDAY AT BEDTIME 100 tablet 07/05/19 25 Active azelastine (ASTELIN) 137 mcg (0.1 %) nasal sprayIndication s:Post-nasal drainage ADMINISTER 1 SPRAY INTO EACH NOSTRIL 2 TIMES A DAY DIRECTED 30 mL 1 07/12/19 25 Active azelastine (ASTELIN) 137 mcg (0.1 %) nasal sprayIndication s:Seasonal Allergic Rhinitis Administer 1 spray into each nostril 2 (two) times a day Use in each nostril as directed 30 mL 04/05/20 24 025 Discontinued cetirizine (ZyrTEC) 10 mg tabletIndicatio ns:Allergic Rhinitis Take 1 tablet (10 mg total) by mouth daily as needed for allergies 90 tablet 04/05/20 24 025 Discontinued simvastatin (ZOCOR) 10 mg tablet TAKE 1 TABLET BY MOUTH EVERYDAY AT BEDTIME 100 tablet 05/23/19 25 025 Discontinued Active Problems Problem Noted Date Diagnosed Date Encounter for Medicare annual wellness exam 10/2024 Assessment & Plan (06/08/2024 10:34 AM PUBLIC SERVICE DIRECTOR): A(n) yearly Medicare Annual Wellness Visit has been performed today. Zelalem Sanchez is not up to date on screening tests. He is in need of Lung cancer screening and Colon cancer screening. He is not up to date on needed preventative vaccinations; He is in need of Influenza and Zoster vaccination(s). We discussed healthy lifestyle habits, educational material has been given. Medications reviewed, changes documented as per the medical record and discussed with patient along with risks vs benefits. Return in 6 months Esophageal stricture 06/08/2024 Vascular dementia without behavioral disturbance 08/31/2023 Aortic ectasia, abdominal 08/31/2023 Closed fracture of proximal phalanx of great toe 03/31/2023 Vasovagal syncope 03/23/2023 Assessment & Plan (03/23/2023 10:12 AM PUBLIC SERVICE DIRECTOR): Pt did not have classic prodrome for [...] 03/23/2023 Assessment & Plan (03/23/2023 10:06 AM PUBLIC SERVICE DIRECTOR): Pt has history of not drinking sufficient water. GFR decreased with increase in Cr noted from ED visit 03/21 - cmp today - UA w reflx Cx Left lower lobe pneumonia 03/23/2023 Assessment & Plan (03/23/2023 10:08 AM PUBLIC SERVICE DIRECTOR): Pt presented to ED on 03/21. Imaging [...] 10/10/2021 Assessment & Plan (03/20/2023 1:53 PM PUBLIC SERVICE DIRECTOR): MRI showed small areas of concern in [...] regimen Gastroesophageal reflux disease without esophagi tis Resolved Problems Problem Noted Date Diagnosed Date Resolved Date LESLYE (acute kidney injury) 03/23/2023 Assessment & Plan (03/23/2023 10:06 AM PUBLIC SERVICE DIRECTOR): Pt GFR currently 50s (see prior cmp from 03/21 ED visit) as well showed increased from baseline creatinine > 0.3 consistent with LESLYE. - cmp today - UA - CBC r/o infection (currently on doxy) COPD (chronic obstructive pulmonary disease) 06/08/2024 Immunizations Immunization Administration Dates Next Due Influenza, Quad, Adjuvantate [...] 09/23/2021, 018 Pneumococcal Conjugate Pcv20 03/18/2023 Tdap 12/29/2023,11/30/2020 Social History Tobacco Use Types Packs/Day Years Used Date Smoking Tobacco: Every Day Cigarettes 2 50.2 Started: 1974 Passive Smoke Exposure: Current Smokeless [...] points, staff should administer the PHQ-9) 0 06/08/2024 [facility] Occupat ional Health - Occupational Stress [...] on file Legal Sex Male 10:52 AM PUBLIC SERVICE DIRECTOR Gender Identity Not on file Sexual Orientation Not on file Last Filed Vital Signs Vital Sign Reading Time Taken Comments Blood Pressure 139/93 06/13/2024 10:43 AM PUBLIC SERVICE DIRECTOR Pulse 94 06/13/2024 10:43 AM PUBLIC SERVICE DIRECTOR Temperature 36.8 C (98.3 F) 06/13/2024 10:43 AM PUBLIC SERVICE DIRECTOR Respiratory Rate 12 06/13/2024 10:43 AM PUBLIC SERVICE DIRECTOR Oxygen Saturation 99% 06/13/2024 10:43 AM PUBLIC SERVICE DIRECTOR Inhaled Oxygen Concentration - - Weight 103 kg (227 lb) 06/13/2024 10:43 AM PUBLIC SERVICE DIRECTOR Height 177.8 cm (5' 10 ) 06/13/2024 10:43 AM PUBLIC SERVICE DIRECTOR Body Mass Index 32.57 06/13/2024 10:43 AM PUBLIC SERVICE DIRECTOR Plan of Treatment Not on file Procedures Procedure Name Priority Date/Time Associated Diagnosis Comments XR FOOT LEFT 3 OR MORE VIEWS Schedule MAURICE, Read MAURICE (Appt Today, Awaiting Results) 06/13/2024 11:18 AM PUBLIC SERVICE DIRECTOR Pain in left foot EGFR Routine 06/08/2024 11:19 AM PUBLIC SERVICE DIRECTOR Mixed hyperlipidemia DIFFERENTIAL AUTO Routine 06/08/2024 11:19 AM PUBLIC SERVICE DIRECTOR Mixed hyperlipidemia CBC WITH AUTO DIFFERENTIAL Routine 06/08/2024 11:19 AM PUBLIC SERVICE DIRECTOR Mixed hyperlipidemia COMPREHENSIVE METABOLIC PANEL Routine 06/08/2024 11:19 AM PUBLIC SERVICE DIRECTOR Mixed hyperlipidemia LIPID PANEL Routine 06/08/2024 11:19 AM PUBLIC SERVICE DIRECTOR Mixed hyperlipidemia PSA SCREEN Routine 06/08/2024 11:19 AM PUBLIC SERVICE DIRECTOR Benign prostatic hyperplasia with post-void dribbling THYROID FUNCTION CASCADE Routine 06/08/2024 11:19 AM PUBLIC SERVICE DIRECTOR Other specified hypothyroidism INFLUENZA A/B, RSV, AND COVID-19 PCR Routine 05/31/2024 4:33 PM PUBLIC SERVICE DIRECTOR Cough, unspecified type Exposure to influenza POC INFLUENZA A/B, COVID-19 ANTIGEN Routine 05/31/2024 4:08 PM PUBLIC SERVICE DIRECTOR Cough, unspecified type XR CHEST 1 VIEW Schedule Routine, Read Routine (OP Routine) 05/31/2024 12:44 PM PUBLIC SERVICE DIRECTOR US ABDOMINAL AORTIC ANEURYSM SCREENING Schedule Routine, Read Routine (OP Routine) 11/06/2021 10:56 AM CDT Screening for abdominal aortic aneurysm HEPATITIS C ANTIBODY Routine 09/23/2021 2:51 PM CDT Need for hepatitis C screening test HM COLONOSCOPY Routine 07/02/2017 from Last 3 Months or Most Recently Relevant to Health Maintenance Results * XR Foot Left 3 or More Views (06/13/2024 11:18 AM PUBLIC SERVICE DIRECTOR) Anatomical Region Laterality Modality Lower Extremities, Foot Left Digital Radiography 06/13/2024 12:5 6 PM PUBLIC SERVICE DIRECTOR Narrative 06/13/2024 12:59 PM PUBLIC SERVICE DIRECTOR EXAM DESCRIPTION: XR FOOT LEFT 3 OR MORE VIEWS REASON FOR STUDY: Pain in Foot, Left, lateral left foot pain after fall this am. Bruising and abrasion Pt fell this morning, generalized pain to the left foot. Prior fractures to this foot per patient. TECHNIQUE: 3 radiographic view(s) of the left foot . COMPARISON: None. FINDINGS: BONES/JOINTS: No acute displaced fracture or dislocation. No aggressive-appearing lesion. Scattered degenerative changes. Calcaneal enthesopathic changes. SOFT TISSUES: No significant abnormality. IMPRESSION: No acute osseous abnormality. THIS IS AN ELECTRONICALLY VERIFIED FINAL REPORT 06/13/2024 12:59 PM - Electronically signed by Raul Finn M.D. NS T: Report ID: [id number] Reading Location: [id number] Procedure Note Raul Finn MD - 06/13/2024 EXAM DESCRIPTION: XR FOOT LEFT 3 OR MORE VIEWS REASON FOR STUDY: Pain in Foot, Left, lateral left foot pain after fallthis am. Bruising and abrasion Pt fell this morning, generalized pain to the left foot. Prior fracturesto this foot per patient. TECHNIQUE: 3 radiographic view(s) of the left foot . COMPARISON: None. FINDINGS: BONES/JOINTS: No acute displaced fracture or dislocation. No aggressive-appearing lesion. Scattered degenerative changes. Calcaneal enthesopathic changes. SOFT TISSUES: No significant abnormality. IMPRESSION: No acute osseous abnormality. THIS IS AN ELECTRONICALLY VERIFIED FINAL REPORT 06/13/2024 12:59 PM - Electronically signed by Raul TORRES T: Report ID: [id number] Reading Location: [place] [address] Liss Deleon NP IMG XR PROCEDURES Final Re sult * eGFR (06/08/2024 11:19 AM PUBLIC SERVICE DIRECTOR) eGFR 77 >=60 mL/min/1. 73 m2 Comment: Interpretive Data Reference Interval Normal >/= 90 mL/min/1.73m2 Mildly decreased* 60 - 89 mL/min/1.73m2 Mildly to moderately decreased 45 - 59 mL/min/1.73m2 Moderately to severely decreased 30 - 44 mL/min/1.73m2 Severely decreased 15 - 29 mL/min/1.73m2 Kidney Failure < 15 mL/min/1.73m2 *Relative to young adult level Estimated glomerular filtration rate is determined by the 2020 CKD-EPI equation recommended by the National Kidney Foundation (A Unifying Approach to GFR Estimation: Recommendations of the NKF-ASK Task Force on Reassessing the Inclusion of Race in Diagnosing Kidney Disease, JASN 202). The CKD-EPI equation should not be used for patients with unstable renal function and has not been validated in children and those over 70. Current interpretive data was last reviewed 2021. Blood 06/08/2024 11:1 9 AM PUBLIC SERVICE DIRECTOR 06/08/2024 3:37 PM PUBLIC SERVICE DIRECTOR us Barry Sahu MD LAB BLOOD ORDERABLES Final Result [facility] [id number] Department [place] [address] * (ABNORMAL) Differential, auto (06/08/2024 11:19 AM PUBLIC SERVICE DIRECTOR) Neutrophil abs 4.7 1.5 - 6.5 K/cumm Imm gran abs 0.0 0.0 - 0.1 K/cumm [facility] Lymphocyte abs 2.5 0.8 - 3.3 K/cumm [facility] Monocyte abs 1.0(H) 0.2 - 0.8 K/cumm [facility] Eosinophil abs 1.2(H) 0.0 - 0.5 K/c[facility] Basophil abs 0.1 0.0 - 0.1 K/cumm [facility] Neutrophil pct 50.1 % [facility] Comment: Interpretive Data Percent cell count reference ranges are not reported, since discordance with absolute values may lead to misinterpretation of CBC data. Current Interpretive Data was last revised on 2017. Imm gran pct 0.3 % [facility] Comment: Interpretive Data Percent cell count reference ranges are not reported, since discordance with absolute values may lead to misinterpretation of CBC data. Current Interpretive Data was last revised on 2017. Lymphocyte pct 26.0 % [facility] Comment: Interpretive Data Percent cell count reference ranges are not reported, since discordance with absolute values may lead to misinterpretation of CBC data. Current Interpretive Data was last revised on 2017. Monocyte pct 10.7 % [facility] Comment: Interpretive Data Percent cell count reference ranges are not reported, since discordance with absolute values may lead to misinterpretation of CBC data. Current Interpretive Data was last revised on 2017. Eosinophil pct 12.4 % [facility] Comment: Interpretive Data Percent cell count reference ranges are not reported, since discordance with absolute values may lead to misinterpretation of CBC data. Current Interpretive Data was last revised on 2017. Basophil pct 0.5 % [facility] Comment: Interpretive Data Percent cell count reference ranges are not reported, since discordance with absolute values may lead to misinterpretation of CBC data. Current Interpretive Data was last revised on 2017. Blood 06/08/2024 11:1 9 AM PUBLIC SERVICE DIRECTOR 06/08/2024 3:19 PM PUBLIC SERVICE DIRECTOR Barry Sahu MD LAB BLOOD ORDERABLES Final Result Performing Organization Address [facility] de Phone Number [facility] [phone] Department [place] [address] * Thyroid Function Shannon (06/08/2024 11:19 AM PUBLIC SERVICE DIRECTOR) TSH 1.63 0.30 - 4.20 mcIUnit/mL Blood 06/08/2024 11:1 9 AM PUBLIC SERVICE DIRECTOR 06/08/2024 3:19 PM PUBLIC SERVICE DIRECTOR Barry Sahu MD LAB BLOOD ORDERABLES Final Result Performing Organization Address [facility] Co de Phone Number [facility] [address] [facility] [place] [address] * PSA screen (06/08/2024 11:19 AM PUBLIC SERVICE DIRECTOR) PSA-Total 4.00 <=5.40 ng/mL Comment: Interpretive Data AGE SEX REFERENCE INTERVAL 0 minutes-150 years Female None 0 minutes-49 years Male None 50-59 years Male 0-3.90 60-69 years Male 0-5.40 70-79 years Male 0-6.20 80-150 years Male 0-6.20 The Nicolas PSA Total assay procedure was used. Results from different manufacturers or methods may not be comparable. Serial testing should be performed using the same method. Current interpretive data last revised 21. Blood 06/08/2024 11:1 9 AM PUBLIC SERVICE DIRECTOR 06/08/2024 3:19 PM PUBLIC SERVICE DIRECTOR Barry Sahu MD LAB BLOOD ORDERABLES Final Result Performing Organization Address City/[facility] Co de Phone Number [facility] [address] [place] [address] * CBC with auto differential (06/08/2024 11:19 AM PUBLIC SERVICE DIRECTOR) WBC 9.5 3.8 - 9.9 K/cumm Hgb 15.7 13.0 - 17.5 g/dL [facility] Hct 46.8 38.9 - 50.3 % [facility] Plt 297 150 - 400 K/cumm [facility] MPV 10.1 9.1 - 12.3 fL [facility] RBC 5.27 4.30 - 5.80 M/cumm [facility] MCV 88.8 81.3 - 96.4 fL [facility] MCH 29.8 27.1 - 33.3 pg [facility] MCHC 33.5 32.3 - 35.7 g/dL [facility] RDW CV 13.4 11.1 - 14.9 % [facility] RDW SD 43.7 35.7 - 48.1 fL [facility] NRBC abs 0.00 0.00 - 0.01 K/cumm [facility] Blood 06/08/2024 11:1 9 AM PUBLIC SERVICE DIRECTOR 06/08/2024 3:19 PM PUBLIC SERVICE DIRECTOR Barry Sahu MD LAB BLOOD ORDERABLES Final Result Performing Organization Address [facility] Co de Phone Number [facility] [address] Department [place] [address] * (ABNORMAL) Lipid panel (06/08/2024 11:19 AM PUBLIC SERVICE DIRECTOR) Cholesterol 131 30 - 199 mg/dL Comment: Interpretive Data Ages < or = 19 years Acceptable: <170 mg/dL Borderline high: 170-199 mg/dL High: >or= 200 mg/dL Ages > or = 20 years Desirable: <200 mg/dL Borderline high: 200-239 mg/dL High: >or= 240 mg/dL Literature References: 1. Expert Panel on Integrated Guidelines for Cardiovascular Health and Risk Reduction in Children and Adolescents. Pediatrics 2011;128:S213 2. NCEP Expert Panel. Circulation 2004;110:227 Current Interpretive Data was last revised on 2017. Triglycerides 215(H) <=149 mg/dL [facility] Comment: Interpretive Data Ages < or = 9 years Acceptable: <75 mg/dL Borderline high: 75-99 mg/dL High: >or= 100 mg/dL Ages 10 to 20 years Acceptable: <90 mg/dL Borderline high: 90-129 mg/dL High: >or= 130 mg/dL Ages > or = 20 years Desirable: <150 mg/dL Borderline high: 150-199 mg/dL High: 200-499 mg/dL Very high: >or= 499 mg/dL Literature References: 1. Expert Panel on Integrated Guidelines for Cardiovascular Health and Risk Reduction in Children and Adolescents. Pediatrics 2011;128:S213 2. NCEP Expert Panel. Circulation 2004;110:227 Current Interpretive Data was last revised on 2017. HDL 31(L) >=40 mg/dL [facility] Comment: Interpretive Data Ages < or = 19 years Acceptable: >45 mg/dL Borderline low: 40-45 mg/dL Low: <40 mg/dL Ages > or = 20 years Desirable: >or= 60 mg/dL Low: <40 mg/dL Literature References: 1. Expert Panel on Integrated Guidelines for Cardiovascular Health and Risk Reduction in Children and Adolescents. Pediatrics 2011;128:S213 2. NCEP Expert Panel. Circulation 2004;110:227 Current Interpretive Data was last revised on 2017. LDL, calculated 65 <=129 mg/dL [facility] Comment: Interpretive Data Ages < or = 19 years Acceptable: <110 mg/dL Borderline high: 110-129 mg/dL High: >or= 130 mg/dL Ages > or = 20 years Optimal: <100 mg/dL Near optimal: 100-129 mg/dL Borderline high: 130-159 mg/dL High: >160 mg/dL Calculated using the John LDL-C estimating equation. This equation was implemented on 2023. Prior to this date LDL-C was estimated using the Friedewald equation. Literature References: 1. Expert Panel on Integrated Guidelines for Cardiovascular Health and Risk Reduction in Children and Adolescents. Pediatrics 2011;128:S213 2. NCEP Expert Panel. Circulation 2004;110:227 3. John Kessler et al. MANUEL Cardiol. 2020 August 31;5(5):540-548. doi: 10.1001/jamacardio.2020.0013 Current Interpretive Data was last revised on 2023. Non-HDL Cholesterol 100 mg/dL [facility] Comment: Interpretive Data Ages < or = 19 years Acceptable: <120 mg/dL Borderline high: 120-144 mg/dL High: >145 mg/dL Ages > or = 20 years When triglycerides are >200 mg/dL, Non-HDL cholesterol is a secondary target of therapy with treatment goals that are 30 mg/dL greater than the LDL cholesterol target. Literature References: 1. Expert Panel on Integrated Guidelines for Cardiovascular Health and Risk Reduction in Children and Adolescents. Pediatrics 2011;128:S213 2. NCEP Expert Panel. Circulation 2004;110:227 Current Interpretive Data was last revised on 2017. Chol/HDL ratio 4 [facility] Blood 06/08/2024 11:1 9 AM PUBLIC SERVICE DIRECTOR 06/08/2024 3:19 PM PUBLIC SERVICE DIRECTOR Barry Sahu MD LAB BLOOD ORDERABLES Final Result [facility] [id number] Department [place] [address] * Comprehensive metabolic panel (06/08/2024 11:19 AM PUBLIC SERVICE DIRECTOR) Sodium 141 135 - 145 mmol/L Potassium, pl 3.7 3.3 - 4.9 mmol/L [facility] Chloride 104 97 - 110 mmol/L [facility] CO2 26 22 - 32 mmol/L [facility] Anion gap 11 2 - 15 mmol/L [facility] BUN 14 6 - 25 mg/dL [facility] Creatinine 1.05 0.80 - 1.30 mg/dL [facility] Glucose 93 70 - 199 mg/dL [facility] Comment: Interpretive Data Fasting glucose >/= 126 mg/dl is diagnostic for diabetes. Fasting is defined as no caloric intake for at least 8 hours. Fasting glucose between 100 mg/dl to 125 mg/dl is diagnostic of prediabetes. In a patient with classic symptoms of hyperglycemia or hyperglycemic crisis, a random glucose >/= 200 mg/dl is diagnostic for diabetes. In the absence of unequivocal hyperglycemia, results should be confirmed by repeat testing. The classification and Diagnosis of Diabetes Diabetes Care 202; 46: S19-S40. Current interpretive data was last revised 2022. Calcium 8.9 8.5 - 10.3 mg/dL [facility] Bilirubin, total 0.5 0.1 - 1.2 mg/dL [facility] Protein, pl 6.6 6.5 - 8.5 g/dL [facility] Albumin 3.8 3.5 - 5.0 g/dL [facility] Alk phos 79 40 - 130 Units/L [facility] ALT 29 7 - 55 Units/L [facility] [facility] 32 10 - 50 Units/L [facility] Blood 06/08/2024 11:1 9 AM PUBLIC SERVICE DIRECTOR 06/08/2024 3:19 PM PUBLIC SERVICE DIRECTOR us Barry Sahu MD LAB BLOOD ORDERABLES Final Result [facility] [address] Department [place] [address] * (ABNORMAL) Influenza A/B, RSV, and COVID-19 PCR Nasopharyngeal (05/31/2024 4:33 PM PUBLIC SERVICE DIRECTOR) Pathologist [facility] COVID-19 RNA Negative Negative Influenza A RNA Positive(A) Negative [facility] Influenza B RNA Negative Negative [facility] RSV RNA Negative Negative [facility] Comment: Interpretive data: Testing performed by [facility]. This test is performed using the [employer] Xpert Xpress CoV-2/Flu/RSV plus assay. This is a multiplex, real-time reverse transcriptase PCR assay intended for the qualitative detection of nucleic acid from SARS-CoV-2, influenza A, influenza B, and respiratory syncytial virus. This assay has been cleared by the [place] Food and Drug administration. The performance characteristics have been verified by the [facility]. Results must be considered in the clinical context, and a negative result does not rule out infection. Interpretive Data last revised 2023 Nasopharyngeal 05/31/2024 4: 33 PM PUBLIC SERVICE DIRECTOR 05/31/2024 9:10 PM PUBLIC SERVICE DIRECTOR Narrative [facility] - 05/31/2024 9:56 PM PUBLIC SERVICE DIRECTOR Is the Patient experiencing symptoms consistent with COVID?->Yes Meryl Cuadra NP LAB MICROBIOLOGY - GENERAL ORD ERABLES Final Result [facility] [address] Department [place] [address] [facility] * POC Influenza A/B, COVID-19 antigen (05/31/2024 4:08 PM PUBLIC SERVICE DIRECTOR) Influenza A Ag, POC Negative Negative [facility] Influenza B Ag, POC Negative Negative [facility] COVID-19 Ag POC Presumptive Negative Presumptive Negative, Invalid [facility] Nasal 05/31/2024 4:08 PM PUBLIC SERVICE DIRECTOR Meryl Cuadra NP POINT OF CARE TEST ORDERABLES Final Result Performing Organization Address City/[facility]/ZIP Co de Phone Number [facility] [address] [place] [address] * XR Chest 1 View (05/31/2024 12:44 PM PUBLIC SERVICE DIRECTOR) Anatomical Region Laterality Modality Body, Chest N/A Radiographic Alia ging Historical Provider IM[facility]ena XR PROCEDURES Final R esult * US Abdominal Aortic Aneurysm Screening (11/06/2021 10:56 AM CDT) Anatomical Region Laterality Modality Abdomen Ultrasound 11/06/2021 11:0 2 AM CDT Narrative 11/06/2021 11:04 AM CDT EXAM DESCRIPTION: US ABDOMINAL AORTIC ANEURYSM SCREENING [...] 2. Mild atherosclerotic changes abdominal aorta without definite [...] Electronically signed by Kristofer Jay D.O. PS: LAURA Report ID: [id number] Reading Location: [id number] Procedure Note Kristofer Jay, - 11/06/2021 EXAM DESCRIPTION: US ABDOMINAL AORTIC [...] Electronically signed by Kristofer Jay D.O. PS: LAURA Report ID: [id number] Reading Location: [id number] us Barry Sahu MD [facility] US PROCEDURES Final Res ult * Hepatitis C antibody (09/23/2021 2:51 PM CDT) Pathologist [facility] Hep C Ab Nonreactive Nonreactive [facility]SEY Comment: Interpretive Data Nonreactive: Antibodies to HCV not detected. Does NOT exclude the possibility of recent exposure to HCV. Equivocal: Equivocal for HCV antibodies. Supplemental molecular testing will be automatically performed to determine infection status in accordance with current CDC screening recommendations. Reactive: Positive for HCV antibodies. This may represent current or past HCV infection. Supplemental molecular testing will be automatically performed to determine current infection status in accordance with current CDC screening recommendations. Interpretive data was last revised on 2019. Blood 09/23/2021 2:51 PM CDT 09/23/2021 8:30 PM CDT Barry Sahu MD LAB MICROBIOLOGY - GENERAL ORDERABLES Final Result Performing Organization Address City/State/[place] Number [place] [address] [address] Department [place] [address] * HM COLONOSCOPY (07/02/2017) Historical Provider HEALTH MAINTENANCE Final Result from Last 3 Months or Most Recently Relevant to Health Maintenance Insurance MEDICARE SOLUTIONS MEDICARE SOLUTIONS Care Teams Accounts Adjustable Clerk Relationship Specialty Start Date End Date Barry Sahu MD [address] [place], [place] [id number] PCP - General Family Medicine 09/22/21 Trae Bhagat MD [address] [place], [place] [id number] Referring Physician Gastroenterology 09/23/21 Lavell Solis MD [address] [address] Consulting Physician Urology 09/25/21 Jeferson Espinosa MD [address] [place] [address] [address] [place] [address] Referring Physician Vascular Surgery 09/25/21 Teresa Berg Dental Night Clerk 09/25/21
--- OUTSIDE RECORDS SUMMARY | 2024-07-14 09:05 | XMS_ITS | Patient Health Summary ---
Author Organization [facility] [employer] Address [address] [place] [address] Care Team Providers Care Hand Stitcher Name Role Phone Karen Desouza MD Primary Care Provider + Note from [facility],non-owned Affiliates and Associated Physician Practices is amultiple site organization consisting of ambulatory clinics and hospital sitesin [place], [place], [place] and [place]. This disclosure is being madepursuant to the Care Everywhere program and may not contain all information available regarding this patient. Last updated 18.[facility] [employer] Allergies No known active allergies Medications * [...] Comments Blood Pressure 112/88 06/29/2014 8:32 AM RESOURCE CONSERVATION SPECIALIST Pulse 56 06/29/2014 8:33 AM RESOURCE CONSERVATION SPECIALIST Temperature 36.7 C (98 F) 06/29/2014 7:04 AM RESOURCE CONSERVATION SPECIALIST Respiratory Rate 18 06/29/2014 8:33 AM RESOURCE CONSERVATION SPECIALIST Oxygen Saturation 97% 06/29/2014 8:33 AM RESOURCE CONSERVATION SPECIALIST Inhaled Oxygen Concentration - - Weight 83.9 kg (185 lb) 06/29/2014 7:04 AM RESOURCE CONSERVATION SPECIALIST Height 177.8 cm (5' 10 ) 06/29/2014 7:04 AM RESOURCE CONSERVATION SPECIALIST Body Mass Index 26.54 06/29/2014 7:04 AM RESOURCE CONSERVATION SPECIALIST Procedures * ESOPHAGOGASTRODUODENOSCOPY (EGD) BIOPSY(Performed 06/29/2014) Performed for Evangelista's esophagus * ESOPHAGOGASTRODUODENOSCOPY (EGD) DIAGNOSTIC(Performed 06/29/2014) Performed for Evangelista's esophagus * PATHOLOGY TISSUE EXAM (STL)(Performed 06/29/2014) * EGD(Performed 06/29/2014) Results * GROSS + MICRO EXAM (STL) (06/29/2014 7:56 AM RESOURCE CONSERVATION SPECIALIST) Case Report Surgical Pathology Report Case: [id number] Authorizing Provider: David Ramon MD Collected: 06/29/2014 07:56 AM [facility] Received: 06/29/2014 11:28 AM Pathologist: Azeb Santos MD Specimens: A) - Esophagus, distal esophagus biopsy B) - Esophagus, proximal esophageal biopsy 06/30/2014 10:32 AM [facility] Final Diagnosis 1. 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 Esophagus, upper third, endoscopic biopsy: -- Gastric mucosa consistent with inlet patch -- No evidence of dysplasia or malignancy KL/vr 06/30/2014 10:32 AM [facility] Gross Description Received in formalin in a container labeled Zelalem Sanchez., distal esophagus biopsy. The container holds multiple pink-martinez tissue fragments measuring 0.1 cm up to 0.3 cm in greatest dimension. The specimen is entirely submitted in cassette labeled A1. Container 2 is labeled proximal esophageal. The container holds three pink-martinez tissue fragments measuring 0.2 cm up to 0.4 cm in greatest dimension. The specimen is entirely submitted in cassette labeled B1. DYT/dak 06/30/2014 10:32 AM [facility] Microscopic Description Histologic sections of the [...] dysplasia or malignancy. KL/vr 06/30/2014 10:32 AM [facility] Pathology/Cytology REGION OF ESOPHAGUS / Unknown 06/29/2014 7:56 AM RESOURCE CONSERVATION SPECIALIST 06/29/2014 11:28 AM RESOURCE CONSERVATION SPECIALIST Comment:799.9 Miscellaneous samples (specimen) REGION OF ESOPHAGUS / Unknown 06/29/2014 8:01 AM RESOURCE CONSERVATION SPECIALIST 06/29/2014 11:28 AM [facility] Comment:799.9 David Ramon MD LAB - PATHOLOGY/C YTOLOGY ORDERABLES [facility] [address] [id number] * EGD (06/29/2014 7:38 AM RESOURCE CONSERVATION SPECIALIST) Report Endoscopy POC _ Patient Name: Zelalem Sanchez Procedure Date: 06/29/2014 7:38 AM Date of : 1955 Admit Type: Outpatient Age: 59 Gender: Male Attending MD: David Ramon MD _ Procedure: Upper GI endoscopy Indications: Exclusion of Evangelista's esophagus Providers: David Ramon MD (Doctor), Gloria Perez RN, Chata Khan, Steel Erecting Pusher Referring MD: Karen Desouza MD (Referring MD) Medicines: See the Anesthesia note for documentation of the administered medications Complications: No immediate complications. _ Procedure: After obtaining informed consent, the endoscope was passed under direct vision. Throughout the procedure, the patient's blood pressure, pulse, and oxygen saturations were monitored continuously. The Endoscope was introduced through the mouth, and advanced to the second part of duodenum. The upper GI endoscopy was accomplished without difficulty. The patient tolerated the procedure well. Impression: - LA Grade A reflux esophagitis. Rule out Evangelista's esophagus. Biopsied. - Abnormal mucosa in the esophagus. Biopsied. - Normal stomach. - Normal examined duodenum. Findings: LA Grade A (one or more mucosal breaks less than 5 mm, not extending between tops of 2 mucosal folds) esophagitis was found 38 to 40 cm from the incisors. Biopsies were taken with a cold forceps for histology. Estimated blood loss was minimal. Localized mild mucosal abnormality ( 2-3 cm patch of ectopic mucosa) was found in the upper third of the esophagus. Biopsies were taken with a cold forceps for histology. Estimated blood loss was minimal. The entire examined stomach was normal. The examined duodenum was normal. _ Recommendation: - Discharge patient to home. - Resume previous diet. - Continue present medications. - Repeat the upper endoscopy for surveillance based on pathology results. - Follow an antireflux regimen. - Telephone my office for pathology results in 2 days. Procedure Code(s): --- Professional --- 95422, Esophagogastroduo denoscopy, flexible, transoral; with biopsy, single or multiple --- Technical --- 30929, Esophagogastroduo denoscopy, flexible, transoral; with biopsy, single or multiple Diagnosis Code(s): --- Professional --- 530.11, Reflux esophagitis 530.9, Unspecified disorder of esophagus --- Technical --- 530.11, Reflux esophagitis 530.9, Unspecified disorder of esophagus CPT copyright 2013 [employer]. All rights reserved. The codes documented in this report are preliminary and upon relaster review may be revised to meet current compliance requirements. David Ramon MD 06/29/2014 8:09 AM Number of Addenda: 0 Note Initiated On: 06/29/2014 7:38 AM [facility] 06/29/2014 7:38 AM RESOURCE CONSERVATION SPECIALIST David Ramon MD GI PROCEDURE ORDE [facility] Care Teams Hand Stitcher Relationship Specialty Start Date End Date Karen Desouza MD [address] [place] [address] PCP - General Family Medicine 06/29/14
--- OUTSIDE RECORDS SUMMARY | 2024-07-14 09:05 | XMS_ITS | Referral Summary ---
Author Organization [facility] Address [address] [place] [address] Care Team Providers Care Junior Web Designer Name Role Phone Karen Desouza MD Primary Care Provider + Source Comments [facility],non-owned Affiliates and Associated Physician Practices is amultiple site organization consisting of ambulatory clinics and hospital sitesin [place], [place], [place] and [place]. This disclosure is being madepursuant to the Care Everywhere program and may not contain all information available regarding this patient. Last updated 18.[facility] Allergies No known active allergies Medications * [...] Comments Blood Pressure 112/88 06/29/2014 8:32 AM LEADITE MAN Pulse 56 06/29/2014 8:33 AM LEADITE MAN Temperature 36.7 C (98 F) 06/29/2014 7:04 AM LEADITE MAN Respiratory Rate 18 06/29/2014 8:33 AM LEADITE MAN Oxygen Saturation 97% 06/29/2014 8:33 AM LEADITE MAN Inhaled Oxygen Concentration - - Weight 83.9 kg (185 lb) 06/29/2014 7:04 AM LEADITE MAN Height 177.8 cm (5' 10 ) 06/29/2014 7:04 AM LEADITE MAN Body Mass Index 26.54 06/29/2014 7:04 AM LEADITE MAN Plan of Treatment Not on file Care Teams Junior Web Designer Relationship Specialty Start Date End Date Karen Desouza MD [address] [place] [address] PCP - General Family Medicine 06/29/14
--- OUTSIDE RECORDS SUMMARY | 2024-07-14 09:05 | XMS_ITS | Continuity of Care Document ---
Author Organization [facility] Address [address] [place] [address] [address] [place] [address] Phone Care Team Providers Care Branch Service Associate Name Role Phone Koch OD, Trae Unavailable Unavailable Advance Directives Directive Yes / No Effective Date File Name No Information Encounters Encounter Description Practice Location Reason(s) For Visit Diagnoses Date Provider Providers Copied on Encounter [facility], [address], [place], [place], [id number], [place] tel:[phone] [facility] No Information 6-200 6 Koch OD Trae. [address], [place], [address], [place]. tel:[phone] Family History Family Member Type Diagnosis Age At Onset No Information Payers Payer name Insurance type Covered republican ID Authoriza tijayda(s) [facility] [id number] Social History Type Description Quantity Date Captured Comments Sex Male Smoking Status No Information Chief Complaint And Reason For Visit No Information Reason For Referral Reason For Referral No Information History Of Present Illness Encounter Date Complaint History Of Prese nt Illness No Information Functional Status Date Functional Assessmen t No Information Instructions Date Instruction Additional Infor mation No Information Assessments Type Assessment Date No Information Patient Care Teams Name Effective Dates (start - stop) Status Members No Information
--- OUTSIDE RECORDS SUMMARY | 2024-07-14 09:05 | XMS_ITS | Clinical Summary ---
Author Organization [facility] [employer] Address [address] [place] [address] Care Team Providers Care Medical Coding Manager Name Role Phone Karen Desouza MD Primary Care Provider + Source Comments [facility],non-owned Affiliates and Associated Physician Practices is amultiple site organization consisting of ambulatory clinics and hospital sitesin [place], [place], [place] and [place]. This disclosure is being madepursuant to the Care Everywhere program and may not contain all information available regarding this patient. Last updated 18.[facility] [employer] Allergies No known active allergies Medications * [...] Comments Blood Pressure 112/88 06/29/2014 8:32 AM FISH NET STRINGER Pulse 56 06/29/2014 8:33 AM FISH NET STRINGER Temperature 36.7 C (98 F) 06/29/2014 7:04 AM FISH NET STRINGER Respiratory Rate 18 06/29/2014 8:33 AM FISH NET STRINGER Oxygen Saturation 97% 06/29/2014 8:33 AM FISH NET STRINGER Inhaled Oxygen Concentration - - Weight 83.9 kg (185 lb) 06/29/2014 7:04 AM FISH NET STRINGER Height 177.8 cm (5' 10 ) 06/29/2014 7:04 AM FISH NET STRINGER Body Mass Index 26.54 06/29/2014 7:04 AM FISH NET STRINGER Plan of Treatment Health Maintenance Due Date [...] Tdap) 01/07/1975 PNEUMOCOCCAL VACCINE 50+ (1 of 1 - PCV) 01/07/2006 ZOSTER VACCINE (1 of 2) 01/07/2006 AAA SCREENING 01/07/2021 COVID-19 VACCINE (1 - 2023-2 5 season) 2024 INFLUENZA VACCINE (#1) 2024 DEPRESSION SCREENING 05/03/2024 MEDICARE AWV CALENDAR YEAR 2024 Respiratory Syncytial Virus (RSV) [...] to complete this topic MENINGOCOCCAL (Group B) VACC INE SHARED DECISION-MAKING Aged Out No longer eligibl e based on patient's age to complete this topic MENINGOCOCCAL GROUPS A/C/Y/W VACCINE Aged Out No longer eligible b ased on patient's age to complete this topic Care Teams Medical Coding Manager Relationship Specialty Start Date End Date Karen Desouza MD [address] [place] [address] PCP - General Family Medicine 06/29/14
--- OUTSIDE RECORDS SUMMARY | 2024-07-14 09:05 | XMS_ITS | Data Portability ---
Author Organization [place] [facility], Main Office [address] [place] [address] Care Team Providers Care Computer Trainer Name Role Phone JESSIE DSOUZA Primary Care [...] support today. He is to wear this wood sawyer when he is up and about. We [...] DO Not Attach Compendium, Do Not Delete/merge, [address] 11:56:40 Surgeries None recorded. Imaging XR, foot 2022 023 [facility] [place], [address], [place], [address], 16:21:55 XR, foot 2022 023 [email or web address] [facility] [place], [address], [place], [address], 10:50:44 US, duplex, venous, lower extremity - Please call Nando Villela with results ) 2022 023 [facility], [address], [place], [address], 16:41:59 XR, foot 2022 023 [facility] [place], [address], [place], [address], 12:50:44 Medication Orders bupivacaine HCl 0.5 % (5 [...] No observ ation record ed. [facility] [place] [address], [place], [address], 02/22/2023 12:19:55 02/27/2002/26/2023 US, heriberto x, linus s, lower extre mity No observ ation record ed. [address], [place], [address], 03/01/2023 10:36:02 03/08/20 XR, foot No observ ation record ed. [facility] [place] [address], [place], [address], 03/08/2023 10:49:11 04/01/20 XR, foot No observ ation record ed. [facility] [place] [address], [place], [address], 04/01/2023 15:03:11 Result Notes None recorded. Problems Name Problem SNOMED Code Status Onset Date Resolution Date Notes Provider Name and Address Organization Details Recorded Time Pain in left foot 91616313310646 7 Active 2022 Citlali Hernandez CMA null, [facility] 11:36:05 Closed fracture of proximal phalanx of great toe 791815337 Active 2022 GOSIA Ortiz [address], [place], [address], [place] [facility] 3 12:20:27 Swelling of lower leg 285856530 Active 2022 Joelle Matamiko , ATC L null, [facility] 3 14:04:14 Localized edema 427814970 Active 2022 Joelle Matamiko , ATC L null, [facility] 3 14:04:43 Closed fracture proximal phalanx, toe 449749403 Active 2022 Arleth Marcano, RMA null, [facility] 3 10:28:13 Closed fracture proximal phalanx, toe 432176603 Active 2022 Corazon Garcia, MIXER DRIVER null, [facility] 13:51:18 Problem Notes None recorded. Procedures Surgical History Date Name Laterality Status Provider Name and Address Organization Details Recorded Time hernia repair completed Citlali jay CMA [facility] 02/22/2023 11:31:50 tonsillectomy completed Citlali jay CMA [facility] 02/22/2023 11:32:06 Imaging Results Imaging Date Name Status LastModified by Organ [facility] Details LastModified Time 02/17/2023 XR, foot, 3 or more view completed [email or web address] Information not available 02/22/2023 10:39:18 02/22/2023 XR, foot completed [facility] [place] [address], [place], [address], 02/22/2023 12:19:55 02/26/2023 US, duplex, venous, lower extremity completed [address], [place], [address], 03/01/2023 10:36:02 03/08/2023 XR, foot completed [facility] [place] [address], [place], [address], 03/08/2023 10:49:11 04/01/2023 XR, foot completed [facility] [place] [address], [place], [address], 04/01/2023 15:03:11 Procedure Notes None recorded. Medical [...] Updated DateTime 02/22/2023 177.8 cm 31.6 kg/m2 11447.32 g Citlali Hernandez CMA [facility] [place] [facility] 02/22/2023 11:22:38 Date Recorded Body height Body mass index (BMI) Body weight Provider Name and Address Organization Details Last Updated DateTime 02/26/2023 177.8 cm 31.6 kg/m2 28726.32 parminder Chandra Radha [facility] [place] [facility] 02/26/2023 13:44:05 Date Recorded Body height Body mass index (BMI) Body weight Provider Name and Address Organization Details Last Updated DateTime 03/08/2023 177.8 cm 31.6 kg/m2 54256.32 g Arleth Jeet [facility] [place] [facility] 03/08/2023 10:27:46 Date Recorded Body height Body mass index (BMI) Body weight Provider Name and Address Organization Details Last Updated DateTime 04/01/2023 177.8 cm 31.6 kg/m2 06467.32 g Corazon Venturaclementine [facility] [place] [facility] 04/01/2023 13:50:33 Social History Question Answer Notes LastModified by Organizat ion Details LastModified Time Tobacco Smoking Status Current Every Day Smoker [facility] 02/22/2023 11:31:24 How Much Tobacco Do You [...] Condition Response BLINDNESS N KIDNEY STONES N MRSA N CARPAL TUNNEL SYNDROME N LUNG DISEASE/DISORDER N HISTORY OF DRUG ABUSE N RADIATION / CHEMOTHERAPY N COPD N SPORTS INJURY N ANKLE PAIN N BLOOD DISEASES N PAST SPINAL SURGERY N SCHIZOPHRENIA N SHINGLES N BOWEL PROBLEMS N SHOULDER PAIN N DEPRESSION (INCLUDING POST ) N FAILED BACK SYNDROME N STROKE/TIA Y [...] HAVE YOU BEEN HOSPITALIZED OR SEEN IN [facility] ER IN THE PAST YEAR ? [...] SNOMED-CT Code Diagnosis ICD10 Code Diagnosis Note [id number] GOSIA Ortiz [facility] [place] [address] [place] [address] 02/22/2023 11:02:05 02/22/2023 12:13:50 Pain in left foot 6114843171 19609 M79.672 Closed fra cture of proximal phalanx of great toe 955568267 S92.412A [id number] [facility] [place] [address] [place] [address] 02/26/2023 13:34:00 02/26/2023 14:37:10 Pain in left foot 4827971325 27078 M79.672 Closed fra cture of proximal phalanx of great toe 295698515 S92.412D Swelling of lower leg 44 4051928 R22.42 Localized edema 05591643 4 R60.0 [id number] GOSIA Ortiz [facility] [place] [address] [place] [address] 03/08/2023 10:23:07 03/08/2023 10:50:44 Closed fracture proximal phalanx, toe 887391474 S92.412D Swelling of lower leg 44 9668674 R22.42 Pain in left foot 262245 4628 28952 M79.097 [id number] GOSIA Ortiz [facility] [place] [address] [place] [address] 04/01/2023 13:46:12 04/01/2023 14:58:52 Closed fracture proximal phalanx, toe 675044614 S92.412D Swelling of lower leg 44 6301064 R22.42 Pain in left foot 705261 4167 80494 M79.672 Health Concerns Section Related Observation LastModified by Organization Detai ls LastModified Time None Recorded Concern Status LastModified by Organization Details LastModified Time None Recorded Advance Directives Directive None Recorded Payers Encounter Date Sequence Insurance Name Policy Number Policy Lux Covered Member ID Lux Member ID Guarantor Name 02/22/2023 1 [facility] (MEDICARE REPLACEMENT/A DVANTAGE - HMO) [id number] Zelalem E Plegge [id number] Zelalem Plegge 02/26/2023 1 [facility] (MEDICARE REPLACEMENT/A DVANTAGE - HMO) [id number] Zelalem E Plegge [id number] Zelalem Plegge 03/08/2023 1 [facility] (MEDICARE REPLACEMENT/A DVANTAGE - HMO) [id number] Zelalem E Plegge [id number] Zelalem Plegge 04/01/2023 1 [facility] (MEDICARE REPLACEMENT/A DVANTAGE - HMO) [id number] Zeallem E Plegge [id number] Zelalem Plegge Notes Date Note Type Note [...] to the emergency room and gave the [facility]. [facility] x-rays demonstrate an acute closed traumatic mildly [...] GOSIA Ortiz [address], [place], [address], [facility] 02/22/2023 12:47:52 02/26/2023 text/html Patient returns complaining [...] x-rays. GOSIA Ortiz [address], [place], [address], [facility] 02/26/2023 14:07:43 03/08/2023 text/html Patient returns for [...] GOSIA Ortiz [address], [place], [address], [employer] [facility] [employer] 03/08/2023 10:49:31 04/01/2023 text/html patient returns for [...] recheck and new x-rays. GOSIA Ortiz [address] [facility] [facility] [address], [place], [address], [facility] 04/01/2023 15:03:49
--- OUTSIDE RECORDS SUMMARY | 2024-07-14 09:05 | XMS_ITS | Clinical Summary ---
Author Organization [facility] [address] [place] [address] Care Team Providers Care Special Population Paraprofessional Name Role Phone Barry Sahu MD Primary Care Provider [phone] Trae Bhagat MD Unavailable [phone] Lavell Solis MD Unavailable [phone] Jeferson Espinosa MD Unavailable [phone] Allergies No known active allergies Medications [...] 10/2024 Assessment & Plan (06/08/2024 10:34 AM NURSERY HELPER): A(n) yearly Medicare Annual Wellness Visit has [...] 03/23/2023 Assessment & Plan (03/23/2023 10:12 AM NURSERY HELPER): Pt did not have classic prodrome for [...] 03/23/2023 Assessment & Plan (03/23/2023 10:06 AM NURSERY HELPER): Pt has history of not drinking sufficient water. GFR decreased with increase in Cr noted from ED visit 03/21 - cmp today - UA w reflx Cx Left lower lobe pneumonia 03/23/2023 Assessment & Plan (03/23/2023 10:08 AM NURSERY HELPER): Pt presented to ED on 03/21. Imaging [...] 10/10/2021 Assessment & Plan (03/20/2023 1:53 PM NURSERY HELPER): MRI showed small areas of concern in [...] 03/23/2023 Assessment & Plan (03/23/2023 10:06 AM NURSERY HELPER): Pt GFR currently 50s (see prior cmp from 03/21 ED visit) as well showed increased from baseline creatinine > 0.3 consistent with LESLYE. - cmp today - UA - CBC r/o infection (currently on doxy) COPD (chronic obstructive pulmonary disease) 06/08/2024 Encounters Date Type Department Care Team Description 06/23/2024 Results Follow-Up [facility] Primary Care at [address] [phone] Pastora Cheney MA 06/13/2024 11:15 AM NURSERY HELPER Ancillary Procedure [facility] Imaging at [address] [phone] Pain in left foot 06/13/2024 10:45 AM NURSERY HELPER Office Visit [facility] at [address] [phone] Liss Deleon NP Pain in left foot (Primary Dx) 06/12/2024 Telephone [facility] Primary Care at [address] [address] Pastora Yanes MA 06/10/2024 Orders Only [facility] Primary Care at [address] [phone] Barry Sahu MD 06/08/2024 11:19 AM NURSERY HELPER - 06/08/2024 11:59 PM NURSERY HELPER Hospital Encounter [address] [address] Other specified hypothyroidism; Benign prostatic hyperplasia with post-void dribbling; Mixed hyperlipidemia Discharge Disposition: Discharge to home or self care 06/08/2024 11:15 AM NURSERY HELPER Lab [facility] Outpatient Lab at [address] [address] Hyperlipidemia (Primary Dx) 06/08/2024 10:15 AM NURSERY HELPER Office Visit [facility] Primary Care at [address] [phone] Barry Sahu MD Encounter for Medicare annual wellness exam (Primary Dx); Mixed hyperlipidemia; Other specified hypothyroidism; Vascular dementia without behavioral disturbance (HCC); Benign prostatic hyperplasia with post-void dribbling; Gastroesophageal reflux disease without esophagitis; Colon cancer screening; Esophageal stricture 06/08/[address] [facility] Accountable Care Organization [address] [place] [address] Josefa Castillo 06/01/2024 Orders Only [facility] Primary Care at [address] [phone] Barry Sahu MD Apical lung nodule (Primary Dx) 06/01/2024 Telephone [facility] Primary Care at [address] [address] Barry Sahu MD 06/01/[address] [facility] at [address] [phone] Meryl Cuadra, RELATIONS SPECIALIST Influenza A (Primary Dx) 05/31/2024 4:33 PM NURSERY HELPER - 05/31/2024 11:59 PM NURSERY HELPER Hospital Encounter [address] [address] Cough, unspecified type; Exposure to influenza Discharge Disposition: Discharge to home or self care 05/31/2024 3:45 PM NURSERY HELPER Office Visit [facility] at [address] [address] Meryl Cuadra, BECCA Cough, unspecified type (Primary Dx); Exposure to influenza; History of COPD; Wheezing 05/26/2024 2:00 PM NURSERY HELPER Office Visit [facility] at [address] [phone] Meryl Cuadra NP Diarrhea, unspecified type (Primary Dx) 05/09/[address] [facility] Accountable Care Organization [address] [place] [address] Alyssa Levin MA 04/20/2024 [facility] Care Organization [address] [place] [address] Josefa Castillo from Last 3 Months Immunizations Immunization Administration Dates Next Due Influenza, [...] 018 Pneumococcal Conjugate Pcv20 03/18/2023 Tdap 12/29/2023,11/30/2020 Surgical History Surgery Date Site/Laterality Comments HERNIA REPAIR TONSILLECTOMY THROAT SURGERY Medical History Medical History Date Comments Vascular dementia (HCC) 2019 Hyperlipidemia Gastroesophageal reflux disease without esophagi tis [...] staff should administer the PHQ-9) 0 06/08/2024 [facility] - [facility] Stress [...] on file Legal Sex Male 10:52 AM NURSERY HELPER Gender Identity Not on file Sexual Orientation Not on file Obstetrics History Last Filed Vital Signs Vital Sign Reading Time Taken Comments Blood Pressure 139/93 06/13/2024 10:43 AM NURSERY HELPER Pulse 94 06/13/2024 10:43 AM NURSERY HELPER Temperature 36.8 C (98.3 F) 06/13/2024 10:43 AM NURSERY HELPER Respiratory Rate 12 06/13/2024 10:43 AM NURSERY HELPER Oxygen Saturation 99% 06/13/2024 10:43 AM NURSERY HELPER Inhaled Oxygen Concentration - - Weight 103 kg (227 lb) 06/13/2024 10:43 AM NURSERY HELPER Height 177.8 cm (5' 10 ) 06/13/2024 10:43 AM NURSERY HELPER Body Mass Index 32.57 06/13/2024 10:43 AM NURSERY HELPER Plan of Treatment Health Maintenance Due Date Last Done Comments Lung Cancer Screening 01/07/2006 Colon Cancer Screening-Colonoscopy 07/02/2022 07/02/2017, 07/02/2017 Covid-19 Vaccine ( season) 2024 02/18/2021, 07/21/2020, 06/30/2020 Influenza Vaccine (#1) 2024 , 02/12/2022, 02/18/2021, Additional history exists Depression Screening 06/08/2025 06/08/2024, 04/05/2024, 08/31/2023, Additional history exists Fall Risk Assessment 06/08/2025 06/08/2024, 04/05/2024, 06/01/2023, Additional history exists Well Visit 65+ 06/08/2025 06/08/2024, 09/23/2021 Zoster Vaccine (1 of 2) 06/08/2025 Post poned from 01/07/2006 (Insurance / Financial) Prostate Cancer Screening-PSA 06/08/2026 06/08/2024, 08/31/2023, 12/28/2022, Additional history exists DTaP/Tdap/Td Vaccine (3 - Td or Tdap) 12/28/2033 12/29/2023, 11/30/2020 Colon Cancer Screening-CT Colonography Discontinued 07/02/2017, 07/02/2017 Colon Cancer Screening-DNA Stool Discontinued 07/02/2017, 07/02/2017 Colon Cancer Screening-FIT Discontinued 07/02/2017, Colon Cancer Screening-Sigmoidoscopy Discontinued 07/02/2017, 07/02/2017 Hepatitis C Screening Completed 09/23/2021 Abdominal Aortic Aneurysm (AAA) Screen Completed 11/11/2022, 09/30/2022, 11/06/2021 Pneumococcal vaccine 65+ Completed 023, 09/23/2021, 05/27/2017 Hepatitis B Screening Completed 08/31/2023 Procedures Procedure Name Priority Date/Time Associated Diagnosis Comments XR FOOT LEFT 3 OR MORE VIEWS Schedule MAURICE, Read MAURICE (Appt Today, Awaiting Results) 06/13/2024 11:18 AM NURSERY HELPER Pain in left foot EGFR Routine 06/08/2024 11:19 AM NURSERY HELPER Mixed hyperlipidemia DIFFERENTIAL AUTO Routine 06/08/2024 11:19 AM NURSERY HELPER Mixed hyperlipidemia CBC WITH AUTO DIFFERENTIAL Routine 06/08/2024 11:19 AM NURSERY HELPER Mixed hyperlipidemia COMPREHENSIVE METABOLIC PANEL Routine 06/08/2024 11:19 AM NURSERY HELPER Mixed hyperlipidemia LIPID PANEL Routine 06/08/2024 11:19 AM NURSERY HELPER Mixed hyperlipidemia PSA SCREEN Routine 06/08/2024 11:19 AM NURSERY HELPER Benign prostatic hyperplasia with post-void dribbling THYROID FUNCTION CASCADE Routine 06/08/2024 11:19 AM NURSERY HELPER Other specified hypothyroidism INFLUENZA A/B, RSV, AND COVID-19 PCR Routine 05/31/2024 4:33 PM NURSERY HELPER Cough, unspecified type Exposure to influenza POC INFLUENZA A/B, COVID-19 ANTIGEN Routine 05/31/2024 4:08 PM NURSERY HELPER Cough, unspecified type XR CHEST 1 VIEW Schedule Routine, Read Routine (OP Routine) 05/31/2024 12:44 PM NURSERY HELPER US ABDOMINAL AORTIC ANEURYSM SCREENING Schedule Routine, Read Routine (OP Routine) 11/06/2021 10:56 AM CDT Screening for abdominal aortic aneurysm HEPATITIS C ANTIBODY Routine 09/23/2021 2:51 PM CDT Need for hepatitis C screening test HM COLONOSCOPY Routine 07/02/2017 from Last 3 Months or Most Recently Relevant to Health Maintenance Results * XR Foot Left 3 or More Views (06/13/2024 11:18 AM NURSERY HELPER) Anatomical Region Laterality Modality Lower Extremities, Foot Left Digital Radiography 06/13/2024 12:5 6 PM NURSERY HELPER Narrative 06/13/2024 12:59 PM NURSERY HELPER EXAM DESCRIPTION: XR FOOT LEFT 3 OR [...] Raul Finn M.D. NS T: Report ID: [id number] Reading Location: [id number] Procedure Note Raul Finn MD - 06/13/2024 [...] signed by Raul TORRES T: Report ID: [id number] Reading Location: [id number] Liss Deleon RELATIONS SPECIALIST IMG XR PROCEDURES Final Re sult * eGFR (06/08/2024 11:19 AM NURSERY HELPER) eGFR 77 >=60 mL/min/1. 73 m2 Comment: [...] of Race in Diagnosing Kidney Disease, JASN 2020). The CKD-EPI equation should not be used for patients with unstable renal function and has not been validated in children and those over 70. Current interpretive data was last reviewed 2021. Blood 06/08/2024 11:1 9 AM NURSERY HELPER 06/08/2024 3:37 PM NURSERY HELPER us Barry Sahu MD LAB BLOOD ORDERABLES Final Result EILEEN [address] Department [place] [address] * (ABNORMAL) Differential, auto (06/08/2024 11:19 AM NURSERY HELPER) Neutrophil abs 4.7 1.5 - 6.5 K/cumm Imm gran abs 0.0 0.0 - 0.1 K/cumm [facility] Lymphocyte abs 2.5 0.8 - 3.3 K/cumm [facility] Monocyte abs 1.0(H) 0.2 - 0.8 K/cumm [facility] Eosinophil abs 1.2(H) 0.0 - 0.5 K/cumm [facility] Basophil abs 0.1 0.0 - 0.1 K/cumm [facility] Neutrophil pct 50.1 % [facility] Comment: Interpretive Data Percent cell count [...] revised on 2017. Monocyte pct 10.7 % [facility] Comment: Interpretive Data Percent cell count reference ranges are not reported, since discordance with absolute values may lead to misinterpretation of CBC data. Current Interpretive Data was last revised on 2017. Eosinophil pct 12.4 % [facility] Comment: Interpretive Data Percent cell count reference ranges are not reported, since discordance with absolute values may lead to misinterpretation of CBC data. Current Interpretive Data was last revised on 2017. Basophil pct 0.5 % [facility] Comment: Interpretive Data Percent cell count reference ranges are not reported, since discordance with absolute values may lead to misinterpretation of CBC data. Current Interpretive Data was last revised on 2017. Blood 06/08/2024 11:1 9 AM NURSERY HELPER 06/08/2024 3:19 PM NURSERY HELPER Barry Sahu MD LAB BLOOD ORDERABLES Final Result Performing Organization Address [facility] de Phone Number EILEEN [phone] [facility] [employer] [place] [address] * Thyroid Function [place] (06/08/2024 11:19 AM NURSERY HELPER) Pathologist [facility] [place] TSH 1.63 0.30 - 4.20 mcIUnit/mL Blood 06/08/2024 11:1 9 AM NURSERY HELPER 06/08/2024 3:19 PM NURSERY HELPER Barry Sahu MD LAB BLOOD ORDERABLES Final Result Performing Organization Address [facility] [place] [address] [address] [facility] [place] [address] * PSA screen (06/08/2024 11:19 AM NURSERY HELPER) PSA-Total 4.00 <=5.40 ng/mL Comment: Interpretive Data [...] revised 21. Blood 06/08/2024 11:1 9 AM NURSERY HELPER 06/08/2024 3:19 PM NURSERY HELPER Barry Sahu MD LAB BLOOD ORDERABLES Final Result Performing Organization Address [facility] Co de Phone Number EILEEN RAMSEY [address] [address] [facility] [place] [place] [address] * CBC with auto differential (06/08/2024 11:19 AM NURSERY HELPER) WBC 9.5 3.8 - 9.9 K/cumm Hgb [...] CERNER CH Blood 06/08/2024 11:1 9 AM NURSERY HELPER 06/08/2024 3:19 PM NURSERY HELPER Barry Sahu MD LAB BLOOD ORDERABLES Final Result Performing Organization Address [facility] Co de Phone Number EILEEN RAMSE[address] [address] [place] [place] [address] * (ABNORMAL) Lipid panel (06/08/2024 11:19 AM NURSERY HELPER) Cholesterol 131 30 - 199 mg/dL Comment: [...] on 2017. Triglycerides 215(H) <=149 mg/dL E[facility]EN RAMSEY Comment: Interpretive Data Ages < or = [...] on 2017. HDL 31(L) >=40 mg/dL E[facility] RAMSEY Comment: Interpretive Data Ages < or = [...] 2017. LDL, calculated 65 <=129 mg/dL E[facility]EN RAMSEY Comment: Interpretive Data Ages < or = [...] 3. John Kessler et al. MANUEL Cardiol. 2019August 31;5(5):540-548. doi: 10.1001/jamacardio.2020.0013 Current Interpretive Data was [...] CERNER CH Blood 06/08/2024 11:1 9 AM NURSERY HELPER 06/08/2024 3:19 PM NURSERY HELPER Barry Sahu MD LAB BLOOD ORDERABLES Final Result E[facility]EN [address] Department [place] [address] * Comprehensive metabolic panel (06/08/2024 11:19 AM NURSERY HELPER) Sodium 141 135 - 145 mmol/L Potassium, pl 3.7 3.3 - 4.9 mmol/L CERNER CH Chloride 104 97 - 110 mmol/L CERNER CH CO2 26 22 - 32 mmol/L [facility]ERNER CH Anion gap 11 2 - 15 mmol/L CERNER BUN 14 6 - 25 mg/dL CERNER CH Creatinine 1.05 0.80 - 1.30 mg/dL CERNER Glucose 93 70 - 199 mg/dL [facility] Comment: Interpretive Data Fasting glucose >/= [...] classification and Diagnosis of Diabetes Diabetes Care 2021; 46: S19-S40. Current interpretive data was last revised 2022. Calcium 8.9 8.5 - 10.3 mg/dL [facility] Bilirubin, total 0.5 0.1 - 1.2 mg/dL CERNER Protein, pl 6.6 6.5 - 8.5 g/dL [facility] Albumin 3.8 3.5 - 5.0 g/dL [facility] Alk phos 79 40 - 130 Units/L CERNER CH ALT 29 7 - 55 Units/L [facility]ER CH AST 32 10 - 50 Units/L [facility] Blood 06/08/2024 11:1 9 AM NURSERY HELPER 06/08/2024 3:19 PM NURSERY HELPER Barry Sahu MD LAB BLOOD ORDERABLES Final Result Performing Organization Address City/State/[facility] Co wy Phone Number [facility] [phone] [address] Department [place] [address] * (ABNORMAL) Influenza A/B, RSV, and COVID-19 PCR Nasopharyngeal (05/31/2024 4:33 PM NURSERY HELPER) COVID-19 RNA Negative Negative CH Influenza A RNA Positive(A) Negative CERNER CH Influenza B RNA Negative Negative CERNER RSV RNA Negative Negative [facility] Comment: Interpretive data: Testing performed by [facility]. This test is performed using the [employer] Xpress CoV-2/Flu/RSV plus assay. This is a multiplex, real-time reverse transcriptase PCR assay intended for the qualitative detection of nucleic acid from SARS-CoV-2, influenza A, influenza B, and respiratory syncytial virus. This assay has been cleared by the [place] Food and Drug administration. The performance characteristics have been verified by the [facility]. Results must be considered in the clinical context, and a negative result does not rule out infection. Interpretive Data last revised 2023 Nasopharyngeal 05/31/2024 4: 33 PM NURSERY HELPER 05/31/2024 9:10 PM NURSERY HELPER Narrative EILEEN - 05/31/2024 9:56 PM NURSERY HELPER Is the Patient experiencing symptoms consistent with COVID?->Yes Meryl Cuadra NP LAB MICROBIOLOGY - GENERAL ORD ERABLES Final Result EILEEN [id number] Department of Laboratories [place] [id number] * POC Influenza A/B, COVID-19 antigen (05/31/2024 4:08 PM NURSERY HELPER) Pathologist [facility] [place] Influenza A Ag, POC Negative Negative [facility] Influenza B Ag, POC Negative Negative [facility] COVID-19 Ag POC Presumptive Negative Presumptive Negative, Invalid [facility] Nasal 05/31/2024 4:08 PM NURSERY HELPER Meryl Cuadra NP POINT OF CARE TEST ORDERABLES Final Result Performing Organization Address City/[facility]/ZIP Co de Phone Number [facility] [address] [place] [address] * XR Chest 1 View (05/31/2024 12:44 PM NURSERY HELPER) Anatomical Region Laterality Modality Body, Chest N/A Radiographic Alia ging Historical Provider MD BLAS XR PROCEDURES Final R esult * US [...] Kristofer Jay D.O. PS: PS Report ID: [id number] Reading Location: [id number] Procedure Note Kristofer Jay, - 11/06/2021 EXAM [...] Kristofer Jay D.O. PS: PS Report ID: [id number] Reading Location: [place] [address] us Barry Sahu MD IM US PROCEDURES Final Res ult * Hepatitis C antibody (09/23/2021 2:51 PM CDT) Hep C Ab Nonreactive Nonreactive EILEEN Comment: Interpretive Data Nonreactive: Antibodies to HCV [...] Final Result Performing Organization Address City/[place] [address] [address] Department [place] [address] * HM COLONOSCOPY (07/02/2017) Historical Provider HEALTH MAINTENANCE Final Result from Last 3 Months or Most Recently Relevant to Health Maintenance Insurance Care Teams Special Population Paraprofessional Relationship Specialty Start Date End Date Barry Sahu MD [address] [place] [address] PCP - General Family Medicine 09/22/21 Trae Bhagat MD [address] [place] [address] Referring Physician Gastroenterology 09/23/21 Lavell Solis MD [address] [place] [address] Consulting Physician Urology 09/25/21 Jeferson Espinosa MD [address] [place] [address] Referring Physician Vascular Surgery 09/25/21 Teresa Berg Dental Entertainment Director 09/25/21
[2024-07-14 09:11] LABS: Estimated Glomerular Filt Rate > 60
== END 2024-07-14 08:41 | disposition home or self-care (01) ==
LOC: ANHIMG 08:44
PROVIDERS: PCP Family Medicine; Visit Provider Family Medicine
DX: R91.1 Solitary pulmonary nodule (principal)
CPT/HCPCS: 71260; Q9967

== ENCOUNTER 2024-09-06 18:05 | Emergency (ER) | payer MEDICARE, SELFPAY ==
--- NOTE | ~2024-09-06 | XR_ITS ---
HISTORY: fall COMPARISON: None TECHNIQUE: 3 views of the left elbow were performed FINDINGS: No acute fracture is identified. No elevation of the anterior or posterior fat pads are identified to suggest a supracondylar fracture . Overlying soft tissues are unremarkable. Bone mineralization is age-appropriate. IMPRESSION: No acute displaced fracture, as detailed above. Reviewed, dictated and finalized at location A.
--- NOTE | ~2024-09-06 | XR_ITS ---
CHEST RADIOGRAPH, PA AND LATERAL CLINICAL HISTORY: fall, near syncope . COMPARISON: 06/01/2024 TECHNIQUE: PA and lateral views of the chest. FINDINGS The cardiomediastinal silhouette is unremarkable. 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 This focus has been stable since 2020. The remainder of the lungs are clear. IMPRESSION: No focal infiltrate or effusion. Reviewed, dictated and finalized at location A.
--- NOTE | ~2024-09-06 | XR_ITS ---
HISTORY: fall COMPARISON: None TECHNIQUE: 2 views of the left third digit were performed FINDINGS: No acute or subacute fracture. Gullwing deformity is identified within the proximal interphalangeal joint spaces of the third and fo urth digits. Joint space narrowing is also detected within the metacarpal phalangeal joints. Remaining visualized joint spaces are preserved and alignment is maintained. Soft tissues are unremarkable without radiopaque foreign body or significant calcification. Age-appropriate mineralization. IMPRESSION: Degenerative disease without acute fracture. Reviewed, dictated and finalized at location A.
--- NOTE | ~2024-09-06 | XR_ITS ---
HISTORY: left knee pain COMPARISON: None TECHNIQUE: 4 views of the left knee were performed FINDINGS: No acute or subacute fracture. Medial and lateral tibiofemoral joint space narrowing is identified. No suprapatellar joint effusion is identified. The infrapatellar joint space is clear. IMPRESSION: Degenerative disease, without acute fracture. Reviewed, dictated and finalized at location A.
--- OUTSIDE RECORDS SUMMARY | 2024-09-06 18:08 | XMS_ITS | Data Portability ---
Author Organization [place] [facility] [email or web address], Main Office Address [address] [place] [address] Care Team Providers Care Doctor Of Pharmacy Name Role Phone JESSIE DSOUZA Primary Care [...] support today. He is to wear this time motion analyst when he is up and about. We [...] DO Not Attach Compendium, Do Not Delete/merge, [id number] 11:56:40 Surgeries None recorded. Imaging XR, foot 2022 023 [facility] [place], [address] [facility] [address], [place], [address], 16:21:55 XR, foot 2022 023 [email or web address] [facility] [place], [address], [place], [address], 10:50:44 US, duplex, venous, lower extremity - Please call Nando Villela with results ) 2022 023 [facility], [address], [place], [address], 16:41:59 XR, foot 2022 023 [facility] [place], [address] [address], [place], [address], 12:50:44 Medication Orders bupivacaine HCl 0.5 % [...] No observ ation record ed. [facility] [place] [address], [place], [address], 02/22/2023 12:19:55 02/27/2002/26/2023 US, heriberto x, linus s, lower extre mity No observ ation record ed. [address] [address], [place], [address], 03/01/2023 10:36:02 03/08/20 XR, foot No observ ation record ed. [facility] [place] [address] [address], [place], [address], 03/08/2023 10:49:11 04/01/20 XR, foot No observ ation record ed. [facility] [place] [address] [address] [address], [place], [address], 04/01/2023 15:03:11 Result Notes None recorded. Problems Name Problem SNOMED Code Status Onset Date Resolution Date Notes Provider Name and Address Organization Details Recorded Time Pain in left foot 33028038171808 7 Active 2022 Citlali Hernandez CMA null, [employer] 11:36:05 Closed fracture of proximal phalanx of great toe 245089143 Active 2022 GOSIA Ortiz [address] [facility], [place], [address], [place] [facility] 3 12:20:27 Swelling of lower leg 387468867 Active 2022 Joelle Matamiko , ATC L null, [facility] 3 14:04:14 Localized edema 783498115 Active 2022 Joelle Matamiko , ATC L null, [facility] 3 14:04:43 Closed fracture proximal phalanx, toe 580878366 Active 2022 Arleth Marcano, RMA null, [facility] 3 10:28:13 Closed fracture proximal phalanx, toe 017672505 Active 2022 Corazon Garcia, CUTTING TOOL SHARPENER null, [facility] 13:51:18 Problem Notes None recorded. Procedures Surgical History Date Name Laterality Status Provider Name and Address Organization Details Recorded Time hernia repair completed Citlali jay CMA [facility] 02/22/2023 11:31:50 tonsillectomy completed Citlali jay CMA [facility] 02/22/2023 11:32:06 Imaging Results Imaging Date Name Status [facility]Modified by [facility] Details LastModified Time 02/17/2023 XR, foot, 3 or more view completed [email or web address] Information not available 02/22/2023 10:39:18 02/22/2023 XR, foot completed [facility] [place] [address] [address], [place], [address], 02/22/2023 12:19:55 02/26/2023 US, duplex, venous, lower extremity completed [address] [facility] [address], [place], [address], 03/01/2023 10:36:02 03/08/2023 XR, foot completed [facility] [place] [address] [facility] [address], [place], [address], 03/08/2023 10:49:11 04/01/2023 XR, foot completed [facility] [place] [address] [address], [place], [address], 04/01/2023 15:03:11 Procedure Notes None recorded. Medical [...] Updated DateTime 02/22/2023 177.8 cm 31.6 kg/m2 26312.32 g Citlali Hernandez CMA [facility] [employer] [facility] 02/22/2023 11:22:38 Date Recorded Body height Body mass index (BMI) Body weight Provider Name and Address Organization Details Last Updated DateTime 02/26/2023 177.8 cm 31.6 kg/m2 94940.32 parminder Chandra Radha [facility] [employer] [facility] 02/26/2023 13:44:05 Date Recorded Body height Body mass index (BMI) Body weight Provider Name and Address Organization Details Last Updated DateTime 03/08/2023 177.8 cm 31.6 kg/m2 50807.32 g Arleth Jeet [facility] [employer] [facility] 03/08/2023 10:27:46 Date Recorded Body height Body mass index (BMI) Body weight Provider Name and Address Organization Details Last Updated DateTime 04/01/2023 177.8 cm 31.6 kg/m2 80863.32 g Corazon Venturaclementine [facility] [employer] [facility] 04/01/2023 13:50:33 Social History Question Answer Notes LastModified by Organizat ion Details LastModified Time Tobacco Smoking Status Current Every Day Smoker [facility] [employer] 02/22/2023 11:31:24 How Much Tobacco Do You [...] HAVE YOU BEEN HOSPITALIZED OR SEEN IN [facility] ER IN THE PAST YEAR ? N [...] SNOMED-CT Code Diagnosis ICD10 Code Diagnosis Note [id number] Shon Rogers MD [facility] [place] [address] [place] [address] 02/22/2023 11:02:05 02/22/2023 12:13:50 Pain in left foot 1557350318 59390 M79.672 Closed fra cture of proximal phalanx of great toe 563040821 S92.412A [id number] Shon Rogers MD [facility] [place] [address] [place] [address] 02/26/2023 13:34:00 02/26/2023 14:37:10 Pain in left foot 1554930103 27550 M79.672 Closed fra cture of proximal phalanx of great toe 704328472 S92.412D Swelling of lower leg 44 2979049 R22.42 Localized edema 89809483 4 R60.0 [id number] Shon Rogers MD [facility] [place] [address] [place] [address] 03/08/2023 10:23:07 03/08/2023 10:50:44 Closed fracture proximal phalanx, toe 176875339 S92.412D Swelling of lower leg 44 7797263 R22.42 Pain in left foot 430238 1677 23784 M79.334 [id number] Shon Rogers MD [facility] [place] [address] [place] [address] 04/01/2023 13:46:12 04/01/2023 14:58:52 Closed fracture proximal phalanx, toe 491777091 S92.412D Swelling of lower leg 44 1132084 R22.42 Pain in left foot 797921 2345 60243 M79.672 Health Concerns Section Related Observation LastModified by Organization Detai ls LastModified Time None Recorded Concern Status LastModified by Organization Details LastModified Time None Recorded Advance Directives Directive None Recorded Payers Encounter Date Sequence Insurance Name Policy Number Policy Lux Covered Member ID Lux Member ID Guarantor Name 02/22/2023 1 [facility] (MEDICARE REPLACEMENT/A DVANTAGE - HMO) [id number] Zelalem E Plegge [id number] Zelalem Plegge 02/26/2023 1 [facility] (MEDICARE REPLACEMENT/A DVANTAGE - HMO) [id number] Zelalem E Plegge [id number] Zelalem Plegge 03/08/2023 1 [facility] (MEDICARE REPLACEMENT/A DVANTAGE - HMO) [id number] Zelalem E Plegge [id number] Zelalem Plegge 04/01/2023 1 [facility] (MEDICARE REPLACEMENT/A DVANTAGE - HMO) [id number] Zelalem E Plegge [id number] Zelalem Plegge Notes Date Note Type Note [...] to the emergency room and gave the [facility]. [facility] x-rays demonstrate an acute closed [...] GOSIA Ortiz [address], [address], [place], [address], [employer] [facility] [email or web address] 02/22/2023 12:47:52 02/26/2023 text/html Patient returns complaining [...] x-rays. GOSIA Ortiz [address], [address], [place], [address], [employer] 02/26/2023 14:07:43 03/08/2023 text/html Patient returns for [...] GOSIA Ortiz [address], [place], [address], [employer] [facility] [email or web address] 03/08/2023 10:49:31 04/01/2023 text/html patient returns for [...] recheck and new x-rays. GOSIA Ortiz [address] [facility], [facility] [address], [place], [address], [place] [facility] 04/01/2023 15:03:49
--- OUTSIDE RECORDS SUMMARY | 2024-09-06 18:08 | XMS_ITS | Clinical Summary ---
Author Organization [facility] Address [address] [place] [address] Care Team Providers Care Executive Receptionist Name Role Phone Barry Sahu MD Primary Care Provider [phone] Allergies No known active allergies Medications albuterol [...] place to sleep or slept in a snf (including now)? No 02/12/2023 Sex and Gender Information Value Date Recorded Sex Assigned at Not on file Legal Sex Male 7:41 PM CDT Gender Identity Not on file Sexual Orientation Not on file Last Filed Vital Signs Vital Sign Reading Time Taken Comments Blood Pressure 142/80 03/21/2023 10:53 PM QUILL MACHINE TENDER Pulse 75 03/21/2023 10:53 PM QUILL MACHINE TENDER Temperature 36.8 C (98.3 F) 03/21/2023 10:53 PM QUILL MACHINE TENDER Respiratory Rate 20 03/21/2023 10:53 PM QUILL MACHINE TENDER Oxygen Saturation 95% 03/21/2023 10:53 PM QUILL MACHINE TENDER Inhaled Oxygen Concentration - - Weight 99.8 kg (220 lb) 03/21/2023 9:19 PM QUILL MACHINE TENDER Height 172.7 cm (5' 8 ) 03/21/2023 9:19 PM QUILL MACHINE TENDER Body Mass Index 33.45 03/21/2023 9:19 PM QUILL MACHINE TENDER Plan of Treatment Health Maintenance Due Date Last Done Comments ASCVD Statin 1955 Colorectal Cancer Screening Colonoscopy (10 Years) 1955 Hepatitis C 01/07/1974 Zoster Vaccines (1 of 2) 01/07/2006 RSV Immunization or 60+ Years (1 - Risk 60-74 years 1-dose series) 2016 Annual Medicare Wellness Visit 01/07/2021 COVID-19 Vaccine (1 - 2023-2 5 season) 2024 ASCVD LDL 02/14/2024 02/13/2023 DTaP, Tdap and Td Vaccines ( 2 - Td or Tdap) 11/30/2030 11/30/2020 Pneumococcal Vaccine: 50+ Years Completed 03/18/2023, 09/23/2021, 05/27/2017 Meningococcal B Vaccine Aged Out No l onger eligible based on patient's age to complete this topic Meningococcal Vaccine Aged Out No jeffrey gilmer eligible based on patient's age to complete this topic RSV Immunizations Under 20 Months Aged Out No longer eligible b ased on patient's age to complete this topic Procedures Procedure Name Priority Date/Time Associated Diagnosis Comments LIPID PANEL Routine 02/13/2023 5:00 AM CDT from Last 3 Months or Most Recently Relevant to Health Maintenance Results * (ABNORMAL) LIPID PANEL (02/13/2023 5:00 AM CDT) CHOLESTEROL 146 <200.0 MG/DL 02/13/2023 5:55 AM CDT [facility] TRIGLYCERIDES 138 <150 MG/DL 02/13/2023 5:55 AM CDT [facility] HDL 32(L) >40.0 MG/DL 02/13/2023 5:55 AM CDT [facility] LDL (CALCULATED) 86 <100 MG/DL 02/13/2023 5:55 AM CDT [facility] NON HDL CHOLESTEROL 114 <130 MG/DL 02/13/2023 5:55 AM CDT [facility] CHOL/HDL RATIO 4.6(H) 0.0 - 4.5 02/13/2023 5:55 AM CDT [facility] VLDL CALCULATION 28 5 - 55 MG/DL 02/13/2023 5:55 AM CDT [facility] LIPID INTERPRETATION 02/13/2023 5:55 AM CDT [facility] Comment: [facility] CONCENSUS REPORT RECOMMENDATIONS: ADULT CHILD LOW RISK: CHOLESTEROL <200 <170 TRIGLYCERIDE <150 --- HDL >=60 --- LDL <100 <110 BORDERLINE: CHOLESTEROL 200-239 170-199 TRIGLYCERIDE 150-199 --- HDL 40-59 --- LDL 100-159 110-129 HIGH RISK: CHOLESTEROL >=240 >=200 TRIGLYCERIDE >=200 --- HDL <40 --- LDL >=160 >=130 02/13/2023 5:00 AM CDT Roe Davies MD LABORATORY Final Result Performing Organization Address City/State/[facility] Co de Phone Number [facility] [address] [place] [address], from Last 3 Months or Most Recently Relevant to Health Maintenance Insurance [id number] Advance Directives * Full Code (Latest Code Status on File) Date Activated Date Inactivated Comments 02/12/2023 6:43 PM 02/13/2023 1:03 PM Care Teams Executive Receptionist Relationship Specialty Start Date End Date Barry Sahu MD [address] [facility] [address] [place] [address] PCP - General FAMILY PRACTICE 02/12/23
--- OUTSIDE RECORDS SUMMARY | 2024-09-06 18:08 | XMS_ITS | Clinical Summary ---
Author Organization [facility] [address] Address [address] [place] [address] Care Team Providers Care Project Facilitator Name Role Phone Barry Sahu MD Primary Care Provider [phone] Trae Bhagat MD Unavailable [phone] Lavell Solis MD Unavailable [phone] Jeferson Espinosa MD Unavailable [phone] Allergies No known active allergies Medications [...] DAY 90 tablet 3 09/14/19 24 Active hydrocortisone 2.5 % creamIndication s:itchy skin Apply topically 2 (two) times a day 30 g 11/23/19 24 Active albuterol HFA (PROVENTIL HFA,VENTOLIN HFA,PROAIR HFA) 90 mcg/actuation inhalerIndicati ons:Other specified respiratory conditions of INHALE 2 PUFFS INHALATION ROUTE EVERY 4 HOURS NEEDED 8.5 each 3 12/07/19 24 Active Additional Information Patient not taking.Reported on 06/13/2024 fluticasone propion-salmete roL (Advair Diskus) 250-50 mcg/dose [...] DAY 90 capsule 1 04/10/20 24 Active azithromycin (ZITHROMAX) 250 mg tabletIndicatio ns:Cough, unspecified type,History of COPD Take 2 tablets the first day, then 1 tablet daily for 4 days. 6 tablet 05/31/19 Active Additional Information Patient not taking.Reported on [...] DIRECTED 30 mL 1 07/12/19 25 Active tiotropium bromide (Spiriva Respimat) 2.5 mcg/actuation inhalerIndicati ons:Chronic obstructive pulmonary disease, unspecified COPD type (HCC) Inhale 2 puffs daily 1 each 3 07/18/19 25 Active sertraline (ZOLOFT) 50 mg tabletIndicatio ns:Memory problem,Recurre nt major depressive disorder, in partial remission TAKE 1 TABLET BY MOUTH EVERY DAY AT NIGHT 100 tablet 07/22/19 25 Active finasteride (PROSCAR) 5 mg tablet TAKE 1 TABLET BY MOUTH EVERY DAY 90 tablet 1 08/11/19 25 Active tamsulosin (FLOMAX) 0.4 mg extended release capsule TAKE 1 CAPSULE BY MOUTH EVERY DAY 100 capsule 08/22/19 25 Active levothyroxine (SYNTHROID) 150 mcg tablet TAKE 1 TABLET BY MOUTH EVERY DAY 100 tablet 1 09/01/19 25 Active finasteride (PROSCAR) 5 mg tablet TAKE 1 TABLET BY MOUTH EVERY DAY 90 tablet 1 09/17/19 24 025 Discontinued levothyroxine (SYNTHROID) 150 mcg tablet Take 1 tablet (150 mcg total) by mouth daily 100 tablet 1 02/18/20 24 025 Discontinued tamsulosin (FLOMAX) 0.4 mg extended release capsule TAKE 1 CAPSULE BY MOUTH EVERY DAY 100 capsule 05/10/19 25 025 Discontinued Active Problems Problem Noted Date Diagnosed Date Encounter for Medicare annual wellness exam 10/2024 Assessment & Plan (06/08/2024 10:34 AM CHILDREN'S NURSERY ASSISTANT): A(n) yearly Medicare Annual Wellness Visit has [...] 03/23/2023 Assessment & Plan (03/23/2023 10:12 AM CHILDREN'S NURSERY ASSISTANT): Pt did not have classic prodrome for [...] 03/23/2023 Assessment & Plan (03/23/2023 10:06 AM CHILDREN'S NURSERY ASSISTANT): Pt has history of not drinking sufficient water. GFR decreased with increase in Cr noted from ED visit 03/21 - cmp today - UA w reflx Cx Left lower lobe pneumonia 03/23/2023 Assessment & Plan (03/23/2023 10:08 AM CHILDREN'S NURSERY ASSISTANT): Pt presented to ED on 03/21. Imaging [...] 10/10/2021 Assessment & Plan (03/20/2023 1:53 PM CHILDREN'S NURSERY ASSISTANT): MRI showed small areas of concern in [...] Wellness Visit has been performed today. Zelalem Maritzadelma is not up to date on screening [...] 03/23/2023 Assessment & Plan (03/23/2023 10:06 AM CHILDREN'S NURSERY ASSISTANT): Pt GFR currently 50s (see prior cmp from 03/21 ED visit) as well showed increased from baseline creatinine > 0.3 consistent with LESLYE. - cmp today - UA - CBC r/o infection (currently on doxy) COPD (chronic obstructive pulmonary disease) 06/08/2024 Encounters Date Type Department Care Team Description 08/25/2024 Telephone [facility] Primary Care at [address] [address] Barry Sahu MD [facility] information 07/14/2024 Orders Only [facility] Primary Care at [address] [address] Barry Sahu MD Apical lung nodule 06/23/2024 Results Follow-Up [facility] Primary Care at [address] [address] Pastora Cheney MA 06/13/2024 11:15 AM CHILDREN'S NURSERY ASSISTANT Ancillary Procedure [facility] Imaging at [address] [address] Pain in left foot 06/13/2024 10:45 AM CHILDREN'S NURSERY ASSISTANT Office Visit [facility] at [address] [address] Liss Deleon, BECCA Pain in left foot (Primary Dx) 06/12/2024 Telephone [facility] Care at [address] [address] Pastora Yanes MA 06/10/2024 Orders Only [facility] Care at [address] [address] Barry Sahu MD from Last 3 Months Immunizations Immunization Administration [...] Date Smoking Tobacco: Every Day Cigarettes 2 50.3 Started: 1973 Passive Smoke Exposure: Current Smokeless [...] staff should administer the PHQ-9) 0 06/08/2024 [facility] - Occupational Stress Questionnaire Answer Date Recorded [...] on file Legal Sex Male 10:52 AM CHILDREN'S NURSERY ASSISTANT Gender Identity Not on file Sexual Orientation Not on file Obstetrics History Last Filed Vital Signs Vital Sign Reading Time Taken Comments Blood Pressure 139/93 06/13/2024 10:43 AM CHILDREN'S NURSERY ASSISTANT Pulse 94 06/13/2024 10:43 AM CHILDREN'S NURSERY ASSISTANT Temperature 36.8 C (98.3 F) 06/13/2024 10:43 AM CHILDREN'S NURSERY ASSISTANT Respiratory Rate 12 06/13/2024 10:43 AM CHILDREN'S NURSERY ASSISTANT Oxygen Saturation 99% 06/13/2024 10:43 AM CHILDREN'S NURSERY ASSISTANT Inhaled Oxygen Concentration - - Weight 103 kg (227 lb) 06/13/2024 10:43 AM CHILDREN'S NURSERY ASSISTANT Height 177.8 cm (5' 10 ) 06/13/2024 10:43 AM CHILDREN'S NURSERY ASSISTANT Body Mass Index 32.57 06/13/2024 10:43 AM CHILDREN'S NURSERY ASSISTANT Plan of Treatment Health Maintenance Due Date Last Done Comments Lung Cancer Screening 01/07/2006 Colon Cancer Screening-Colonoscopy 07/02/2022 07/02/2017, 07/02/2017 Covid-19 Vaccine ( season) 2024 02/18/2021, 07/21/2020, 06/30/2020 Influenza Vaccine (Season Ended) 2025 03/18/2023, 02/12/2022, 02/18/2021, Additional history exists Depression Screening [...] (Appt Today, Awaiting Results) 06/13/2024 11:18 AM CHILDREN'S NURSERY ASSISTANT Pain in left foot PSA SCREEN Routine 06/08/2024 11:19 AM CHILDREN'S NURSERY ASSISTANT Benign prostatic hyperplasia with post-void dribbling ABDOMINAL AORTIC ANEURYSM SCREENING Schedule Routine, Read Routine (OP Routine) 11/06/2021 10:56 AM CDT Screening for abdominal aortic aneurysm HEPATITIS C ANTIBODY Routine 09/23/2021 2:51 PM CDT Need for hepatitis C screening test HM COLONOSCOPY Routine 07/02/2017 from Last 3 Months or Most Recently Relevant to Health Maintenance Results * XR Foot Left 3 or More Views (06/13/2024 11:18 AM CHILDREN'S NURSERY ASSISTANT) Anatomical Region Laterality Modality Lower Extremities, Foot Left Digital Radiography 06/13/2024 12:5 6 PM CHILDREN'S NURSERY ASSISTANT Narrative 06/13/2024 12:59 PM CHILDREN'S NURSERY ASSISTANT EXAM DESCRIPTION: XR FOOT LEFT 3 OR [...] Raul Finn M.D. NS T: Report ID: [id number] Reading Location: [id number] Procedure Note Raul Finn MD - 06/13/2024 [...] Raul Finn M.D. NS T: Report ID: [id number] Reading Location: [id number] Liss Deleon NP IMG XR PROCEDURES Final Re sult * PSA screen (06/08/2024 11:19 AM CHILDREN'S NURSERY ASSISTANT) PSA-Total 4.00 <=5.40 ng/mL Comment: Interpretive Data [...] revised 21. Blood 06/08/2024 11:1 9 AM CHILDREN'S NURSERY ASSISTANT 06/08/2024 3:19 PM CHILDREN'S NURSERY ASSISTANT us Barry Sahu MD LAB BLOOD ORDERABLES Final Result [address] [address] [facility] [place] [address] * US Abdominal Aortic Aneurysm [...] Vascular Surgery Guidelines: J Vasc Surgery 2008 Oct 50: [id number]; updated May 2017 J Vasc Surgery 67:277 THIS IS AN ELECTRONICALLY VERIFIED FINAL REPORT 11/06/2021 11:04 AM - Electronically signed by Kristofer Jay D.O. PS: PS Report ID: [id number] Reading Location: [id number] Procedure Note Kristofer Jay, DO - 11/06/2021 [...] Kristofer Jay D.O. PS: LAURA Report ID: [id number] Reading Location: [id number] Barry Sahu MD IMG US PROCEDURES Final [...] MICROBIOLOGY - GENERAL ORDERABLES Final Result [facility] [address] Department [place] [address] * HM COLONOSCOPY (07/02/2017) Historical Provider HEALTH MAINTENANCE Final Result from Last 3 Months or Most Recently Relevant to Health [place] [address] [facility] MEDICARE ADVANTAGE [facility] MEDICARE ADVANTAGE Care Teams Project Facilitator Relationship Specialty Start Date End Date Barry Sahu MD [facility] [place] [address] PCP - General Family Medicine 09/22/21 Trae Bhagat MD [address] [place] [address] Referring Physician Gastroenterology 09/23/21 Lavell Solis MD [address] [place] [address] Consulting Physician Urology 09/25/21 Jeferson Espinosa MD [address] [place] [address] Referring Physician Vascular Surgery 09/25/21 Teresa Berg Dental Tank Pumper 09/25/21
--- OUTSIDE RECORDS SUMMARY | 2024-09-06 18:09 | XMS_ITS | Referral Summary ---
Author Organization [facility] [address] Address [address] [place] [address] Care Team Providers Care Assistant Therapy Aide Name Role Phone Barry Sahu MD Primary Care Provider [phone] Trae Bhagat MD Unavailable [phone] Lavell Solis MD Unavailable [phone] Jeferson Espinosa MD Unavailable [phone] Encounters Date Type Department Care Team Description 08/25/2024 Telephone [facility] Primary Care at [address] [address] Barry Sahu MD [facility] 07/14/2024 Orders Only [facility] Primary Care at [address] [address] Barry Sahu MD Apical lung nodule 06/23/2024 Results Follow-Up [facility] Primary Care at [address] [address] Pastora Cheney MA 06/13/2024 11:15 AM TRAVEL MED SURG RN Ancillary Procedure [facility] Imaging at [address] [address] Pain in left foot 06/13/2024 10:45 AM TRAVEL MED SURG RN Office Visit [facility] Convenient Care at [address] [address] Liss Deleon NP Pain in left foot (Primary Dx) 06/12/2024 Telephone [facility] Medical [facility] Primary Care at [address] [address] Pastora Yanes MA 06/10/2024 Orders Only [facility] Primary Care at [address] [address] Barry Sahu MD from Last 3 Months Allergies No known [...] 10/2024 Assessment & Plan (06/08/2024 10:34 AM TRAVEL MED SURG RN): A(n) yearly Medicare Annual Wellness Visit has [...] 03/23/2023 Assessment & Plan (03/23/2023 10:12 AM TRAVEL MED SURG RN): Pt did not have classic prodrome for [...] 03/23/2023 Assessment & Plan (03/23/2023 10:06 AM TRAVEL MED SURG RN): Pt has history of not drinking sufficient water. GFR decreased with increase in Cr noted from ED visit 03/21 - cmp today - UA w reflx Cx Left lower lobe pneumonia 03/23/2023 Assessment & Plan (03/23/2023 10:08 AM TRAVEL MED SURG RN): Pt presented to ED on 03/21. Imaging [...] 10/10/2021 Assessment & Plan (03/20/2023 1:53 PM TRAVEL MED SURG RN): MRI showed small areas of concern in [...] cancer screening and Colon cancer screening- getting OS records. He is not up to date [...] 03/23/2023 Assessment & Plan (03/23/2023 10:06 AM TRAVEL MED SURG RN): Pt GFR currently 50s (see prior cmp [...] staff should administer the PHQ-9) 0 06/08/2024 [facility] [place] [facility] Occup[facility] ional [facility] - Occupational Stress [...] on file Legal Sex Male 10:52 AM TRAVEL MED SURG RN Gender Identity Not on file Sexual Orientation Not on file Last Filed Vital Signs Vital Sign Reading Time Taken Comments Blood Pressure 139/93 06/13/2024 10:43 AM TRAVEL MED SURG RN Pulse 94 06/13/2024 10:43 AM TRAVEL MED SURG RN Temperature 36.8 C (98.3 F) 06/13/2024 10:43 AM TRAVEL MED SURG RN Respiratory Rate 12 06/13/2024 10:43 AM TRAVEL MED SURG RN Oxygen Saturation 99% 06/13/2024 10:43 AM TRAVEL MED SURG RN Inhaled Oxygen Concentration - - Weight 103 kg (227 lb) 06/13/2024 10:43 AM TRAVEL MED SURG RN Height 177.8 cm (5' 10 ) 06/13/2024 10:43 AM TRAVEL MED SURG RN Body Mass Index 32.57 06/13/2024 10:43 AM TRAVEL MED SURG RN Plan of Treatment Not on file Procedures Procedure Name Priority Date/Time Associated Diagnosis Comments XR FOOT LEFT 3 OR MORE VIEWS Schedule MAURICE, Read MAURICE (Appt Today, Awaiting Results) 06/13/2024 11:18 AM TRAVEL MED SURG RN Pain in left foot PSA SCREEN Routine 06/08/2024 11:19 AM TRAVEL MED SURG RN Benign prostatic hyperplasia with post-void dribbling ABDOMINAL [...] 3 or More Views (06/13/2024 11:18 AM TRAVEL MED SURG RN) Anatomical Region Laterality Modality Lower Extremities, Foot Left Digital Radiography 06/13/2024 12:5 6 PM TRAVEL MED SURG RN Narrative 06/13/2024 12:59 PM TRAVEL MED SURG RN EXAM DESCRIPTION: XR FOOT LEFT 3 OR [...] Raul Finn M.D. NS T: Report ID: [id number] Reading Location: [id number] Procedure Note Raul Finn MD - 06/13/2024 [...] Raul Finn M.D. NS T: Report ID: [id number] Reading Location: [id number] us Liss Deleon NP IMG XR PROCEDURES Final Re sult * PSA screen (06/08/2024 11:19 AM TRAVEL MED SURG RN) PSA-Total 4.00 <=5.40 ng/mL Comment: Interpretive Data [...] revised 21. Blood 06/08/2024 11:1 9 AM TRAVEL MED SURG RN 06/08/2024 3:19 PM TRAVEL MED SURG RN us Barry Sahu MD LAB BLOOD ORDERABLES Final Result [facility] [address] [facility] [place], [place] [id number] * US Abdominal Aortic Aneurysm Screening (11/06/2021 [...] for Vascular Surgery Guidelines: J Vasc Surgery 2009 Oct 50: [id number]; updated May 2017 J Vasc Surgery 67:277 THIS IS AN ELECTRONICALLY VERIFIED FINAL REPORT 11/06/2021 11:04 AM - Electronically signed by Kristofer Jay D.O. PS: PS Report ID: [id number] Reading Location: [id number] Procedure Note Jay Kristofer Travis, DO - 11/06/2021 EXAM DESCRIPTION: US ABDOMINAL [...] Kristofer Jay D.O. PS: PS Report ID: [id number] Reading Location: [id number] Barry Sahu MD IMG US PROCEDURES Final [...] MICROBIOLOGY - GENERAL ORDERABLES Final Result [facility] [address] Department [place] [address] * HM COLONOSCOPY (07/02/2017) Historical Provider HEALTH MAINTENANCE Final Result from Last 3 Months or Most Recently Relevant to Health Maintenance Insurance [facility] MEDICARE ADVANTAGE [facility] Address: [address] [address] [place] [address] [facility] MEDICARE ADVANTAGE [facility] Address: [address] [address] [place] [address] Care Teams Assistant Therapy Aide Relationship Specialty Start Date End Date Barry Sahu MD [address] [place] [address] PCP - General Family Medicine 09/22/21 Trae Bhagat MD [address] [place] [address] Referring Physician Gastroenterology 09/23/21 Lavell Solis MD [address] [address] Consulting Physician Urology 09/25/21 Jeferson Espinosa MD [address] [place] [address] Referring Physician Vascular Surgery 09/25/21 Berg, Teresa [facility] Window Glass Cutter Off 09/25/21
--- OUTSIDE RECORDS SUMMARY | 2024-09-06 18:09 | XMS_ITS | Continuity of Care Document ---
Author Organization [facility] Address [address] [place] [address] [address] [place] [address] Phone Care Team Providers Care Geographic Information Scientist Name Role Phone Koch OD, Trae Unavailable Unavailable Advance Directives Directive Yes / No Effective Date File Name No Information Encounters Encounter Description Practice Location Reason(s) For Visit Diagnoses Date Provider Providers Copied on Encounter [facility], [address], [place], [place], [id number], [place] tel:[phone] [facility] No Information 6-200 6 Koch OD Trae. [address] , [address], [place], [address], [place]. tel:[phone] Family History Family Member Type Diagnosis Age At Onset No Information Payers Payer name Insurance type Covered libertarian ID Authoriza tijayda(s) [facility] [id number] Social History Type Description Quantity Date Captured [...]
--- OUTSIDE RECORDS SUMMARY | 2024-09-06 18:09 | XMS_ITS | Clinical Summary ---
Author Organization [facility] Address [address] [place] [address] Care Team Providers Care Generation Mechanic Helper Name Role Phone Karen Desouza MD Primary Care Provider + Source Comments [facility],non-owned Affiliates and Associated Physician Practices is amultiple site organization consisting of ambulatory clinics and hospital sitesin [place], [place], [place] and [place]. This disclosure is being madepursuant to the Care Everywhere program and may not contain all information available regarding this patient. Last updated 18.[facility] Allergies No known active allergies Medications * Be aware that medications may not be up to date on this document. Alwaysverify current medications with the patient. levothyroxine (SYNTHROID) 200 MCG tablet Take 200 [...] at Not on file Legal Sex Male 3:19 PM FOCUS PULLER Gender Identity Not on file Sexual Orientation Not on file Last Filed Vital Signs Vital Sign Reading Time Taken Comments Blood Pressure 112/88 06/29/2014 8:32 AM FOCUS PULLER Pulse 56 06/29/2014 8:33 AM FOCUS PULLER Temperature 36.7 C (98 F) 06/29/2014 7:04 AM FOCUS PULLER Respiratory Rate 18 06/29/2014 8:33 AM FOCUS PULLER Oxygen Saturation 97% 06/29/2014 8:33 AM FOCUS PULLER Inhaled Oxygen Concentration - - Weight 83.9 kg (185 lb) 06/29/2014 7:04 AM FOCUS PULLER Height 177.8 cm (5' 10 ) 06/29/2014 7:04 AM FOCUS PULLER Body Mass Index 26.54 06/29/2014 7:04 AM FOCUS PULLER Plan of Treatment Health Maintenance Due Date [...] VACCINE (1 - 2023-2 5 season) 2024 DEPRESSION SCREENING 05/03/2024 INFLUENZA VACCINE (Season Ended) 2025 Respiratory Syncytial Virus (RSV) Vaccine Pt: or [...] on patient's age to complete this topic Insurance [facility] MEDICARE Care Teams Generation Mechanic Helper Relationship Specialty Start Date End Date Karen Desouza MD [address] [place] [address] PCP - General Family Medicine 06/29/14
[2024-09-06 18:29] VITALS: BP 153/97; PULSE 78; RESP 17; TEMP 36.5; O2SAT 95
--- NOTE | 2024-09-06 18:34 | ED.DIZZY ---
HPI - Dizziness General Chief Complaint: Dizziness <Gia Flores PA-C - Last Filed: 09/08/24 11:07> Stated Complaint: Got Dizzy and fell, knee/elbow and finger injury <Gia Flores PA-C - Last Filed: 09/08/24 11:07> Time Seen by Provider: 09/06/24 18:34 <Gia Flores PA-C - Last Filed: 09/08/24 11:07> Focused HPI: This is a 69 year old male that presents to the ER for a fall today. Reports he fell lightheaded and fell. He did not hit his head or lose consciousness. Reports left knee pain, left elbow pain, left third finger pain. Denies chest pain, shortness of breath, palpitations. GENERAL: Well-appearing, well-nourished, and in no acute distress. HEAD: Normocephalic, atraumatic. CHEST: Clear to auscultation. ?No respiratory distress. HEART: Regular rate and rhythm.? NEURO: ?Alert and oriented x3. Patient screened in triage and initial orders placed.? ?Additional care and disposition to be based upon?diagnostic testing and treatment. <Gia Flores PA-C - Last Filed: 09/08/24 11:07> History of Present Illness HPI Narrative: agree with MSE <Kianna Fernando MD - Last Filed: 09/07/24 03:21> Related Data Home Medications: Home Medications ?Medication ?Instructions ?Recorded ?Confirmed ?Last Taken ?Type aspirin 325 mg tablet 325 mg PO DAILY 06/23/19 09/19/21 Unknown History mirabegron 25 mg tablet,extended 25 mg PO DAILY 05/05/21 09/19/21 Unknown History release 24 hr (Myrbetriq) tamsulosin 0.4 mg capsule 0.4 mg PO DAILY 07/30/21 09/19/21 Unknown History benzonatate 100 mg capsule 100 mg PO TID 09/10/21 09/19/21 Unknown History <Gia Flores PA-C - Last Filed: 09/08/24 11:07> Allergies/Adverse Reactions: Allergies Allergy/AdvReac Type Severity Reaction Status Date / Time venom-wasp Allergy Severe Swelling Verified 09/06/24 18:07 <Gia Flores PA-C - Last Filed: 09/08/24 11:07> Review of Systems Review of Systems: All systems reviewed & are unremarkable except as noted in HPI and below <Kianna Fernando MD - Last Filed: 09/07/24 03:21> [facility] Past Medical History Medical History: Medical History History of esophageal dilatation (~2019) History of COVID-19 05/2021 Dyslipidemia Esophageal dilatation 2019 Tonsillectomy planned 1959 Benign prostatic hyperplasia Chronic obstructive pulmonary disease, unspecified DDD (degenerative disc disease), lumbar Essential (primary) hypertension Gastro-esophageal reflux disease without esophagitis Hypothyroidism, unspecified Low back pain at multiple sites Smoking greater than 40 pack years Vascular dementia without behavioral disturbance <Gia Flores PA-C - Last Filed: 09/08/24 11:07> Surgical History Surgical History: Surgical History Hx of tonsillectomy (Unknown) H/O hernia repair 1989 <Gia Flores PA-C - Last Filed: 09/08/24 11:07> Social History Social History: Social History Smoking packs per day: 1 Smoking cigarettes per day: 20.0 Years smoked: 50 Smoking pack-years: 50.00 Tobacco type: cigarettes Second hand tobacco smoke exposure: No Alcohol intake: current Substance use: never Living arrangements: with family Occupation/Education: other Additional occupation/education comments: disabled Gender identity (if verbalized by the patient): Male Spiritual care concerns: No <Gia Flores PA-C - Last Filed: 09/08/24 11:07> Exam Narrative: EXAMINATION OF ORGAN SYSTEMS/BODY AREAS: Constitutional: Vital signs per nursing GENERAL:[No acute distress, non-toxic appearing.] HEAD: Normal with no signs of head trauma. EYES: EOMI, conjunctiva normal ENT: Hearing grossly intact LUNGS: Nonlabored breathing. HEART: [Regular rate and rhythm] ABD: [Soft], [nontender to palpation] EXT: Normal range of motion, some tenderness to the left middle finger SKIN: Abrasions to L knee NEURO: [Alert and oriented x 3. No gross focal sensory or strength deficits.] PSYCH: Normal affect <Kianna Fernando MD - Last Filed: 09/07/24 03:21> Course Vital Signs Vital signs: Vital Signs Temperature 97.7 F 09/06/24 18:29 Pulse Rate 78 09/06/24 18:29 Respiratory Rate 17 09/06/24 18:29 Blood Pressure 153/97 H 09/06/24 18:29 Pulse Oximetry 95 09/06/24 18:29 Oxygen Delivery Room Air 09/06/24 18:29 Temperature 97.7 F 09/06/24 18:29 Pulse Rate 72 09/06/24 22:53 Respiratory Rate 16 09/06/24 22:53 Blood Pressure 145/87 H 09/06/24 22:53 Pulse Oximetry 96 09/06/24 22:53 Oxygen Delivery Room Air 09/06/24 18:29 <Gia Flores PA-C - Last Filed: 09/08/24 11:07> Vital Signs Temperature 97.7 F 09/06/24 18:29 Pulse Rate 78 09/06/24 18:29 Respiratory Rate 17 09/06/24 18:29 Blood Pressure 153/97 H 09/06/24 18:29 Pulse Oximetry 95 09/06/24 18:29 Oxygen Delivery Room Air 09/06/24 18:29 Temperature 97.7 F 09/06/24 18:29 Pulse Rate 72 09/06/24 22:53 Respiratory Rate 16 09/06/24 22:53 Blood Pressure 145/87 H 09/06/24 22:53 Pulse Oximetry 96 09/06/24 22:53 Oxygen Delivery Room Air 09/06/24 18:29 <Kianna Fernando MD - Last Filed: 09/07/24 03:21> MDM - Dizziness MDM Narrative Medical decision making narrative: Patient states that he was outside sitting down when he got up and started walking on a sidewalk, he then started feeling very dizzy and fell, had no loss consciousness and did not hit his head, he is feeling completely fine now. Does not think he was dehydrated but does admit he is not always drink enough. No chest pain, shortness of breath, headache. He does have some tenderness where he landed. Imaging obtained does not show any acute abnormality or fractures. EKG my independent interpretation shows normal sinus rhythm, rate 69, right bundle-branch block, normal OK, QRS, QTC, axis, no obvious ST elevation or depression or signs of acute ischemia or arrhythmia. On re-evaluation he states he feels great, vital signs are normal, I did have him up and ambulate and he did so with no issues and no return of dizziness. He would like to go home and I feel this is quite reasonable, he was discharged in stable condition with strict return precautions I have asked him to call his doctor tomorrow for close follow-up. <Kianna Fernando MD - Last Filed: 09/07/24 03:21> Lab Data Result diagrams: 09/06/24 20:16 09/06/24 20:16 <Gia Flores PA-C - Last Filed: 09/08/24 11:07> Labs: Lab Results 09/06/24 Range/Units 20:16 WBC 8.5 (4.5-10.0) K/mm3 RBC 5.27 (4.6-6.20) M/mm3 Hgb 15.3 (14.0-18.0) g/dL Hct 45.1 (42.0-52.0) % MCV 85.6 (80-100) fl MCH 29.0 (26-34) pg MCHC 33.9 (32-36) g/dl RDW 13.5 (11.5-14.5) % Plt Count 247 (150-375) k/mm3 MPV 9.3 (7.4-10.4) fl Immature Gran % (Auto) 0.4 (0-0.5) % Neut % (Auto) 57.4 (45.5-73.1) % Lymph % (Auto) 26.4 (18.3-44.2) % [place] % (Auto) 11.4 H (2.6-8.5) % Eos % (Auto) 3.6 (0-4.4) % Baso % (Auto) 0.8 (0.2-1.2) % Lymph # (Auto) 2.25 (0.9-3.2) K/mm3 [place] # (Auto) 1.0 H (0.1-0.6) K/mm3 Eos # (Auto) 0.3 (0-0.3) K/mm3 Baso # (Auto) 0.1 (0.0-0.1) K/mm3 Abs Immat Gran (auto) 0.03 (0.00-0.031) K/mm3 Absolute Neuts (auto) 4.9 (1.3-6.7) K/mm3 Absolute Nucleated RBC 0.000 (0.0-0.012) K/mm3 Nucleated RBC % 0.0 (0.0-0.2) % Sodium 140 (137-145) mmol/L Potassium 3.5 (3.4-5.0) mmol/L Chloride 104 (98-107) mmol/L Carbon Dioxide 28 (22-30) mmol/L Anion Gap 8 (4-12) mmol/L BUN 24 H (9-20) mg/dL Creatinine 1.03 (0.7-1.3) mg/dL Estim Creat Clear Calc 73 ml/min Estimated GFR > 60 (59 - ) Glucose 101 (65-110) mg/dL Calcium 9.1 (8.4-10.2) mg/dL Total Bilirubin 0.4 (0.2-1.3) mg/dL AST 26 (17-59) U/L ALT 29 (6-50) U/L Alkaline Phosphatase 71 (38-126) U/L Total Protein 7.0 (6.3-8.2) g/dL Albumin 4.0 (3.5-5.1) g/dL <Gia Flores PA-C - Last Filed: 09/08/24 11:07> Lab Results 09/06/24 Range/Units 20:16 WBC 8.5 (4.5-10.0) K/mm3 RBC 5.27 (4.6-6.20) M/mm3 Hgb 15.3 (14.0-18.0) g/dL Hct 45.1 (42.0-52.0) % MCV 85.6 (80-100) fl MCH 29.0 (26-34) pg MCHC 33.9 (32-36) g/dl RDW 13.5 (11.5-14.5) % Plt Count 247 (150-375) k/mm3 MPV 9.3 (7.4-10.4) fl Immature Gran % (Auto) 0.4 (0-0.5) % Neut % (Auto) 57.4 (45.5-73.1) % Lymph % (Auto) 26.4 (18.3-44.2) % Oldham % (Auto) 11.4 H (2.6-8.5) % Eos % (Auto) 3.6 (0-4.4) % Baso % (Auto) 0.8 (0.2-1.2) % Lymph # (Auto) 2.25 (0.9-3.2) K/mm3 [place]ham # (Auto) 1.0 H (0.1-0.6) K/mm3 Eos # (Auto) 0.3 (0-0.3) K/mm3 Baso # (Auto) 0.1 (0.0-0.1) K/mm3 Abs Immat Gran (auto) 0.03 (0.00-0.031) K/mm3 Absolute Neuts (auto) 4.9 (1.3-6.7) K/mm3 Absolute Nucleated RBC 0.000 (0.0-0.012) K/mm3 Nucleated RBC % 0.0 (0.0-0.2) % Sodium 140 (137-145) mmol/L Potassium 3.5 (3.4-5.0) mmol/L Chloride 104 (98-107) mmol/L Carbon Dioxide 28 (22-30) mmol/L Anion Gap 8 (4-12) mmol/L BUN 24 H (9-20) mg/dL Creatinine 1.03 (0.7-1.3) mg/dL Estim Creat Clear Calc 73 ml/min Estimated GFR > 60 (59 - ) Glucose 101 (65-110) mg/dL Calcium 9.1 (8.4-10.2) mg/dL Total Bilirubin 0.4 (0.2-1.3) mg/dL AST 26 (17-59) U/L ALT 29 (6-50) U/L Alkaline Phosphatase 71 (38-126) U/L Total Protein 7.0 (6.3-8.2) g/dL Albumin 4.0 (3.5-5.1) g/dL <Kianna Fernando MD - Last Filed: 09/07/24 03:21> Imaging Data Radiologist's impression: ITS Impressions Chest X-Ray 09/06/24 20:14 IMPRESSION: No focal infiltrate or effusion. Elbow X-Ray 09/06/24 20:19 IMPRESSION: No acute displaced fracture, as detailed above. Finger X-Ray 09/06/24 20:20 IMPRESSION: Degenerative disease without acute fracture. Knee X-Ray 09/06/24 20:21 IMPRESSION: Degenerative disease, without acute fracture. <Gia Flores PA-C - Last Filed: 09/08/24 11:07> Critical Care Time Critical Care Time Critical Care Time: No <Gia Flores PA-C - Last Filed: 09/08/24 11:07> Discharge Plan Discharge Clinical Impression: Dizziness Fall Qualifiers: Encounter type: initial encounter Qualified Code(s): W19.XXXA - Unspecified fall, initial encounter <BELINDA Tuttle Last Filed: 09/08/24 11:07> Patient Disposition: Home <BELINDA Tuttle Last Filed: 09/08/24 11:07> Condition: Stable <Gia Flores PA-C - Last Filed: 09/08/24 11:07> Instructions: Fall Prevention for Older Adults (ED), Dizziness (ED) <BELINDA Tuttle Last Filed: 09/08/24 11:07> Additional Instructions: Please follow up with your doctor; make sure to keep hydrated and take your time when going from sitting to standing. Come back to the ER if your symptoms return or worsen. <BELINDA Tuttle Last Filed: 09/08/24 11:07> Patient Language: Citizen Of [place] <BELINDA Tuttle Last Filed: 09/08/24 11:07> Prescriptions: No Action aspirin 325 mg tablet 325 mg PO DAILY tamsulosin 0.4 mg capsule 0.4 mg PO DAILY Myrbetriq 25 mg tablet extended release 24 hr 25 mg PO DAILY albuterol sulfate [ProAir HFA] 90 mcg/actuation HFA aerosol inhaler 2 puff INHALATION Q4-6H PRN (Reason: shortness of breath or wheezing) Qty: 18 5RF benzonatate 100 mg capsule 100 mg PO TID cephalexin 500 mg capsule 500 mg PO Q12H 7 Days Qty: 14 0RF guaifenesin [Mucinex] 1,200 mg tablet extended release 12hr 1,200 mg PO Q12H Qty: 20 0RF fluticasone propionate [Flonase Allergy Relief] 50 mcg/actuation spray,suspension 1 spray intranasal Q12H Qty: 16 0RF Rx Instructions: administer into each nostril loratadine [Claritin] 10 mg tablet 10 mg PO DAILY PRN (Reason: allergy symptoms) Qty: 20 0RF albuterol sulfate [Ventolin HFA] 90 mcg/actuation HFA aerosol inhaler 2 puff inhalation QID PRN (Reason: shortness of breath or wheezing) Qty: 8.5 0RF metoprolol succinate 25 mg tablet extended release 24 hr 25 mg PO DAILY Qty: 90 2RF fluticasone propion-salmeterol [Wixela Inhub] 250-50 mcg/dose blister with device 1 inh INHALATION BID Qty: 180 1RF levothyroxine 150 mcg tablet 150 mcg PO DAILY Qty: 90 1RF pantoprazole 40 mg tablet,delayed release (DR/EC) 40 mg PO QAM 30 Days Qty: 30 12RF lisinopril-hydrochlorothiazide 20-25 mg tablet 1 tablet PO DAILY Qty: 90 1RF finasteride 5 mg tablet 5 mg PO DAILY Qty: 90 1RF simvastatin 10 mg tablet 10 mg PO QHS Qty: 90 1RF <Gia Flores PA-C - Last Filed: 09/08/24 11:07> Follow-up/Referrals: Luis Alberto,Barry Fiore MD [Primary Care Provider] - 2 Days <Gia Flores PA-C - Last Filed: 09/08/24 11:07>
--- NOTE | 2024-09-06 18:36 | ECG_ITS ---
Test Date: 2024-09-06 20:11:55 Measurements Intervals Leonard Rate: 69 P: 50 SD: 179 QRS: 27 QRSD: 157 T: 28 QT: 409 QTc: 439 Interpretive Statements SINUS RHYTHM RIGHT BUNDLE BRANCH BLOCK [120+ ms QRS DURATION, UPRIGHT V1, 40+ ms S IN I/aVL/V4/V5/V6] No previous ECG available for comparison Electronically Signed On 09-07-2024 10:05:37 CDT by Rosemary Shoemaker M.D.
[2024-09-06 20:22] LABS: Basophils Absolute Auto 0.1 K/mm3 (0.0-0.1); Basophils Percent Auto 0.8 % (0.2-1.2); Eosinophils Absolute Auto 0.3 K/mm3 (0-0.3); Eosinophils Percent Auto 3.6 % (0-4.4); Hematocrit 45.1 % (42.0-52.0); Hemoglobin 15.3 g/dL (14.0-18.0); Immature Granulocyte Absolute 0.03 K/mm3 (0.00-0.031); Immature Granulocyte Percent A 0.4 % (0-0.5); Lymphocytes Absolute Auto 2.25 K/mm3 (0.9-3.2); Lymphocytes Percent Auto 26.4 % (18.3-44.2); Mean Corpuscular HGB Conc 33.9 g/dl (32-36); Mean Corpuscular Volume 85.6 fl (80-100); Mean Platelet Volume 9.3 fl (7.4-10.4); Monocytes Percent Auto 11.4 % (2.6-8.5); Neutrophils Absolute Auto 4.9 K/mm3 (1.3-6.7); Neutrophils Percent Auto 57.4 % (45.5-73.1); Platelet Count Result 247 k/mm3 (150-375); Red Blood Count 5.27 M/mm3 (4.6-6.20); Red Cell Distribution Width 13.5 % (11.5-14.5); White Blood Count 8.5 K/mm3 (4.5-10.0)
[2024-09-06 20:32] LABS: Alanine Aminotransferase 29 U/L (6-50); Alkaline Phosphatase 71 U/L (38-126); Anion Gap 8 mmol/L (4-12); Aspartate Amino Transferase 26 U/L (17-59); Bilirubin,Total 0.4 mg/dL (0.2-1.3); Blood Urea Nitrogen 24 mg/dL (9-20); Calcium 9.1 mg/dL (8.4-10.2); Carbon Dioxide 28 mmol/L (22-30); Chloride 104 mmol/L (98-107); Estimated CRCL calculation 73 ml/min; Estimated Glomerular Filt Rate > 60; Glucose 101 mg/dL (65-110); Potassium 3.5 mmol/L (3.4-5.0); Sodium 140 mmol/L (137-145)
--- OUTSIDE RECORDS SUMMARY | 2024-09-06 21:21 | XMS_ITS | Clinical Summary ---
Author Organization [facility] Address [address] [place] [address] Care Team Providers Care It Project Manager Name Role Phone Karen Desouza MD Primary Care Provider + Source Comments [facility],non-owned Affiliates and Associated Physician Practices is amultiple site organization consisting of ambulatory clinics and hospital sitesin [place], [place], [place] and [place]. This disclosure is being madepursuant to the Care Everywhere program and may not contain all information available regarding this patient. Last updated 18.[employer] [facility] Allergies No known active allergies Medications * [...] on file Legal Sex Male 3:19 PM HOT MOLDER Gender Identity Not on file Sexual Orientation Not on file Last Filed Vital Signs Vital Sign Reading Time Taken Comments Blood Pressure 112/88 06/29/2014 8:32 AM HOT MOLDER Pulse 56 06/29/2014 8:33 AM HOT MOLDER Temperature 36.7 C (98 F) 06/29/2014 7:04 AM HOT MOLDER Respiratory Rate 18 06/29/2014 8:33 AM HOT MOLDER Oxygen Saturation 97% 06/29/2014 8:33 AM HOT MOLDER Inhaled Oxygen Concentration - - Weight 83.9 kg (185 lb) 06/29/2014 7:04 AM HOT MOLDER Height 177.8 cm (5' 10 ) 06/29/2014 7:04 AM HOT MOLDER Body Mass Index 26.54 06/29/2014 7:04 AM HOT MOLDER Plan of Treatment Health Maintenance Due Date [...] patient's age to complete this topic Insurance [facility] MEDICARE Care Teams It Project Manager Relationship Specialty Start Date End Date Karen Desouza MD [address] [place] [address] PCP - General Family Medicine 06/29/14
--- OUTSIDE RECORDS SUMMARY | 2024-09-06 21:21 | XMS_ITS | Clinical Summary ---
Author Organization [facility] [place] [address] [place] [address] Care Team Providers Care Yarding Engineer Name Role Phone Barry Sahu MD Primary Care Provider [phone] Trae Bhagat MD Unavailable [phone] Lavell Solis MD Unavailable [phone] Jeferson Espinosa MD Unavailable [phone] Allergies No known active allergies Medications [...] 10/2024 Assessment & Plan (06/08/2024 10:34 AM HYDRODYNAMICS PROFESSOR): A(n) yearly Medicare Annual Wellness Visit has [...] 03/23/2023 Assessment & Plan (03/23/2023 10:12 AM HYDRODYNAMICS PROFESSOR): Pt did not have classic prodrome for [...] 03/23/2023 Assessment & Plan (03/23/2023 10:06 AM HYDRODYNAMICS PROFESSOR): Pt has history of not drinking sufficient water. GFR decreased with increase in Cr noted from ED visit 03/21 - cmp today - UA w reflx Cx Left lower lobe pneumonia 03/23/2023 Assessment & Plan (03/23/2023 10:08 AM HYDRODYNAMICS PROFESSOR): Pt presented to ED on 03/21. Imaging [...] 10/10/2021 Assessment & Plan (03/20/2023 1:53 PM HYDRODYNAMICS PROFESSOR): MRI showed small areas of concern in [...] 03/23/2023 Assessment & Plan (03/23/2023 10:06 AM HYDRODYNAMICS PROFESSOR): Pt GFR currently 50s (see prior cmp from 03/21 ED visit) as well showed increased from baseline creatinine > 0.3 consistent with LESLYE. - cmp today - UA - CBC r/o infection (currently on doxy) COPD (chronic obstructive pulmonary disease) 06/08/2024 Encounters Date Type Department Care Team Description 08/25/2024 Telephone [facility] Primary Care at [address] [address] [facility] information 07/14/2024 Orders Only [facility] Primary Care at [address] [address] Barry Sahu MD Apical lung nodule 06/23/2024 Results Follow-Up [facility] Primary Care at [address] [address] Pastora Cheney MA 06/13/2024 11:15 AM HYDRODYNAMICS PROFESSOR Ancillary Procedure [facility] Imaging at [address] [address] Pain in left foot 06/13/2024 10:45 AM HYDRODYNAMICS PROFESSOR Office Visit [facility] at [address] [address] Liss Deleon, BECCA Pain in left foot (Primary Dx) 06/12/2024 Telephone [facility] Primary Care at [address] [address] Pastora Yanes MA 06/10/2024 Orders Only [facility] Primary Care at [address] [address] Barry Sahu MD from Last [...] staff should administer the PHQ-9) 0 06/08/2024 [facility] - Occupational Stress Questionnaire Answer Date [...] on file Legal Sex Male 10:52 AM HYDRODYNAMICS PROFESSOR Gender Identity Not on file Sexual Orientation Not on file Obstetrics History Last Filed Vital Signs Vital Sign Reading Time Taken Comments Blood Pressure 139/93 06/13/2024 10:43 AM HYDRODYNAMICS PROFESSOR Pulse 94 06/13/2024 10:43 AM HYDRODYNAMICS PROFESSOR Temperature 36.8 C (98.3 F) 06/13/2024 10:43 AM HYDRODYNAMICS PROFESSOR Respiratory Rate 12 06/13/2024 10:43 AM HYDRODYNAMICS PROFESSOR Oxygen Saturation 99% 06/13/2024 10:43 AM HYDRODYNAMICS PROFESSOR Inhaled Oxygen Concentration - - Weight 103 kg (227 lb) 06/13/2024 10:43 AM HYDRODYNAMICS PROFESSOR Height 177.8 cm (5' 10 ) 06/13/2024 10:43 AM HYDRODYNAMICS PROFESSOR Body Mass Index 32.57 06/13/2024 10:43 AM HYDRODYNAMICS PROFESSOR Plan of Treatment Health Maintenance Due Date [...] (Appt Today, Awaiting Results) 06/13/2024 11:18 AM HYDRODYNAMICS PROFESSOR Pain in left foot PSA SCREEN Routine 06/08/2024 11:19 AM HYDRODYNAMICS PROFESSOR Benign prostatic hyperplasia with post-void dribbling ABDOMINAL [...] 3 or More Views (06/13/2024 11:18 AM HYDRODYNAMICS PROFESSOR) Anatomical Region Laterality Modality Lower Extremities, Foot Left Digital Radiography 06/13/2024 12:5 6 PM HYDRODYNAMICS PROFESSOR Narrative 06/13/2024 12:59 PM HYDRODYNAMICS PROFESSOR EXAM DESCRIPTION: XR FOOT LEFT 3 OR [...] Raul Finn M.D. NS T: Report ID: [id number] Reading Location: [id number] Procedure Note Raul Finn MD - 06/13/2024 [...] Raul Finn M.D. NS T: Report ID: [id number] Reading Location: [id number] Liss Deleon NP IMG XR PROCEDURES Final Re sult * PSA screen (06/08/2024 11:19 AM HYDRODYNAMICS PROFESSOR) PSA-Total 4.00 <=5.40 ng/mL Comment: Interpretive Data [...] revised 21. Blood 06/08/2024 11:1 9 AM HYDRODYNAMICS PROFESSOR 06/08/2024 3:19 PM HYDRODYNAMICS PROFESSOR us Barry Sahu MD LAB BLOOD ORDERABLES Final Result [address] [address] Department [place] [address] * US Abdominal Aortic Aneurysm [...] Kristofer Jay D.O. PS: PS Report ID: [id number] Reading Location: [id number] Procedure Note Kristofer Jay, DO - 11/06/2021 [...] 11:04 AM - Electronically signed by Kristofer Jya D.O. PS: LAURA Report ID: [id number] Reading Location: [id number] Barry Sahu MD IMG US PROCEDURES Final [...] MICROBIOLOGY - GENERAL ORDERABLES Final Result [address] [address] [facility] [place] [address] * HM COLONOSCOPY (07/02/2017) Historical Provider HEALTH MAINTENANCE Final Result from Last 3 Months or Most Recently Relevant to Health Maintenance [place] [address] [facility] Address[facility] [address] [address] [place] [address] [facility] MEDIC[facility] AD[facility]ANTAGE [facility] Address: [address] [address] [place] [address] Care Teams Yarding Engineer Relationship Specialty Start Date End Date Barry Sahu MD [facility] [address] [place] [address] PCP - General Family Medicine 09/22/21 Trae Bhagat MD [address] [place] [address] Referring Physician Gastroenterology 09/23/21 Lavell Solis MD [address] [place] [address] Consulting Physician Urology 09/25/21 Jeferson Espinosa MD [address] [place] [address] Referring Physician Vascular Surgery 09/25/21 Teresa Berg Dental Costumed Character 09/25/21
--- OUTSIDE RECORDS SUMMARY | 2024-09-06 21:21 | XMS_ITS | Continuity of Care Document ---
Author Organization [facility] Address [address] [place] [address] [address] [place] [address] Phone Care Team Providers Care Ultrasonic Seaming Machine Operator Name Role Phone Koch OD, Trae Unavailable Unavailable Advance Directives Directive Yes / No Effective Date File Name No Information Encounters Encounter Description Practice Location Reason(s) For Visit Diagnoses Date Provider Providers Copied on Encounter [facility], [address], [place], [place], [id number], [place] tel:[phone] [facility] No Information 6-200 6 Koch OD Trae. [address] , [address], [place], [address], [place]. tel:[phone] Family History Family Member Type Diagnosis Age At Onset No Information Payers Payer name Insurance type Covered democrat ID Authoriza tijayda(s) [facility] [id number] Social History Type Description Quantity Date Captured [...]
--- OUTSIDE RECORDS SUMMARY | 2024-09-06 21:21 | XMS_ITS | Clinical Summary ---
Author Organization [facility] Address [address] [place] [address] Care Team Providers Care Electrical Controls Engineer Name Role Phone Barry Sahu MD Primary Care Provider [phone] Allergies No known active allergies Medications albuterol [...] place to sleep or slept in a usp (including now)? No 02/12/2023 Sex and Gender Information Value Date Recorded Sex Assigned at Not on file Legal Sex Male 7:41 PM CDT Gender Identity Not on file Sexual Orientation Not on file Last Filed Vital Signs Vital Sign Reading Time Taken Comments Blood Pressure 142/80 03/21/2023 10:53 PM LIVESTOCK SLAUGHTERER Pulse 75 03/21/2023 10:53 PM LIVESTOCK SLAUGHTERER Temperature 36.8 C (98.3 F) 03/21/2023 10:53 PM LIVESTOCK SLAUGHTERER Respiratory Rate 20 03/21/2023 10:53 PM LIVESTOCK SLAUGHTERER Oxygen Saturation 95% 03/21/2023 10:53 PM LIVESTOCK SLAUGHTERER Inhaled Oxygen Concentration - - Weight 99.8 kg (220 lb) 03/21/2023 9:19 PM LIVESTOCK SLAUGHTERER Height 172.7 cm (5' 8 ) 03/21/2023 9:19 PM LIVESTOCK SLAUGHTERER Body Mass Index 33.45 03/21/2023 9:19 PM LIVESTOCK SLAUGHTERER Plan of Treatment Health Maintenance Due Date [...] 146 <200.0 MG/DL 02/13/2023 5:55 AM CDT [facility] TRIGLYCERIDES 138 <150 MG/DL 02/13/2023 5:55 AM CDT [facility] HDL 32(L) >40.0 MG/DL 02/13/2023 5:55 AM CDT [facility] LDL (CALCULATED) 86 <100 MG/DL 02/13/2023 5:55 AM CDT [facility] NON HDL CHOLESTEROL 114 <130 MG/DL 02/13/2023 5:55 AM CDT [facility] CHOL/HDL RATIO 4.6(H) 0.0 - 4.5 02/13/2023 5:55 AM CDT [facility] VLDL CALCULATION 28 5 - 55 MG/DL 02/13/2023 5:55 AM CDT [facility] LIPID INTERPRETATION 02/13/2023 5:55 AM CDT [facility] Comment: NIH CONCENSUS REPORT RECOMMENDATIONS: ADULT CHILD LOW RISK: CHOLESTEROL <200 <170 TRIGLYCERIDE <150 --- HDL >=60 --- LDL <100 <110 BORDERLINE: CHOLESTEROL 200-239 170-199 TRIGLYCERIDE 150-199 --- HDL 40-59 --- LDL 100-159 110-129 HIGH RISK: CHOLESTEROL >=240 >=200 TRIGLYCERIDE >=200 --- HDL <40 --- LDL >=160 >=130 02/13/2023 5:00 AM CDT Roe Davies MD LABORATORY Final Result Performing Organization Address City/State/[facility] Co de Phone Number [facility] [address] [place] [address], from Last 3 Months or Most Recently Relevant to Health Maintenance Insurance [id number] Advance Directives * Full Code (Latest Code Status on File) Date Activated Date Inactivated Comments 02/12/2023 6:43 PM 02/13/2023 1:03 PM Care Teams Electrical Controls Engineer Relationship Specialty Start Date End Date Barry Sahu MD [address] [facility] [address] [place] [address] PCP - General FAMILY PRACTICE 02/12/23
--- OUTSIDE RECORDS SUMMARY | 2024-09-06 21:21 | XMS_ITS | Referral Summary ---
Author Organization [facility] [address] Address [address] [place] [address] Care Team Providers Care Manager Cancer Name Role Phone Barry Sahu MD Primary Care Provider [phone] Trae Bhagat MD Unavailable [phone] Lavell Solis MD Unavailable [phone] Jeferson Espinosa MD Unavailable [phone] Encounters Date Type Department Care Team Description 08/25/2024 Telephone [facility] Primary Care at [address] [address] Barry Sahu MD [facility] 07/14/2024 Orders Only [facility] Primary Care at [address] [address] Barry Sahu MD Apical lung nodule 06/23/2024 Results Follow-Up [facility] Primary Care at [address] [address] Pastora Cheney MA 06/13/2024 11:15 AM COSMETIC CHEMIST Ancillary Procedure [facility] Imaging at [address] [address] Pain in left foot 06/13/2024 10:45 AM COSMETIC CHEMIST Office Visit [facility] at [address] [address] Liss Deleon NP Pain in left foot (Primary Dx) 06/12/2024 Telephone [facility] Primary Care at [address] [address] Pastora Yanes MA 06/10/2024 Orders Only [facility] Primary Care at [address] [address] Barry Sahu MD from Last [...] 10/2024 Assessment & Plan (06/08/2024 10:34 AM COSMETIC CHEMIST): A(n) yearly Medicare Annual Wellness Visit has [...] 03/23/2023 Assessment & Plan (03/23/2023 10:12 AM COSMETIC CHEMIST): Pt did not have classic prodrome for [...] 03/23/2023 Assessment & Plan (03/23/2023 10:06 AM COSMETIC CHEMIST): Pt has history of not drinking sufficient water. GFR decreased with increase in Cr noted from ED visit 03/21 - cmp today - UA w reflx Cx Left lower lobe pneumonia 03/23/2023 Assessment & Plan (03/23/2023 10:08 AM COSMETIC CHEMIST): Pt presented to ED on 03/21. Imaging [...] 10/10/2021 Assessment & Plan (03/20/2023 1:53 PM COSMETIC CHEMIST): MRI showed small areas of concern in [...] 03/23/2023 Assessment & Plan (03/23/2023 10:06 AM COSMETIC CHEMIST): Pt GFR currently 50s (see prior cmp [...] staff should administer the PHQ-9) 0 06/08/2024 [facility] [place] [facility] Occupat ional [facility] - Occupational Stress [...] on file Legal Sex Male 10:52 AM COSMETIC CHEMIST Gender Identity Not on file Sexual Orientation Not on file Last Filed Vital Signs Vital Sign Reading Time Taken Comments Blood Pressure 139/93 06/13/2024 10:43 AM COSMETIC CHEMIST Pulse 94 06/13/2024 10:43 AM COSMETIC CHEMIST Temperature 36.8 C (98.3 F) 06/13/2024 10:43 AM COSMETIC CHEMIST Respiratory Rate 12 06/13/2024 10:43 AM COSMETIC CHEMIST Oxygen Saturation 99% 06/13/2024 10:43 AM COSMETIC CHEMIST Inhaled Oxygen Concentration - - Weight 103 kg (227 lb) 06/13/2024 10:43 AM COSMETIC CHEMIST Height 177.8 cm (5' 10 ) 06/13/2024 10:43 AM COSMETIC CHEMIST Body Mass Index 32.57 06/13/2024 10:43 AM COSMETIC CHEMIST Plan of Treatment Not on file Procedures Procedure Name Priority Date/Time Associated Diagnosis Comments XR FOOT LEFT 3 OR MORE VIEWS Schedule MAURICE, Read MAURICE (Appt Today, Awaiting Results) 06/13/2024 11:18 AM COSMETIC CHEMIST Pain in left foot PSA SCREEN Routine 06/08/2024 11:19 AM COSMETIC CHEMIST Benign prostatic hyperplasia with post-void dribbling ABDOMINAL [...] 3 or More Views (06/13/2024 11:18 AM COSMETIC CHEMIST) Anatomical Region Laterality Modality Lower Extremities, Foot Left Digital Radiography 06/13/2024 12:5 6 PM COSMETIC CHEMIST Narrative 06/13/2024 12:59 PM COSMETIC CHEMIST EXAM DESCRIPTION: XR FOOT LEFT 3 OR [...] Raul Finn M.D. NS T: Report ID: [id number] Reading Location: [id number] Procedure Note Raul Finn MD - 06/13/2024 [...] Raul Finn M.D. NS T: Report ID: [id number] Reading Location: [id number] us Liss Deleon NP IMG XR PROCEDURES Final Re sult * PSA screen (06/08/2024 11:19 AM COSMETIC CHEMIST) PSA-Total 4.00 <=5.40 ng/mL Comment: Interpretive Data [...] revised 21. Blood 06/08/2024 11:1 9 AM COSMETIC CHEMIST 06/08/2024 3:19 PM COSMETIC CHEMIST us Barry Sahu MD LAB BLOOD ORDERABLES Final Result [facility] [address] Department of Laboratories [place], [place] [id number] * US Abdominal Aortic Aneurysm Screening (11/06/2021 [...] Kristofer Jay D.O. PS: PS Report ID: [id number] Reading Location: [id number] Procedure Note Jay Kristofer Travis, DO - [...] Kristofer Jay D.O. PS: PS Report ID: [id number] Reading Location: [id number] Barry Sahu MD IMG US PROCEDURES Final [...] MICROBIOLOGY - GENERAL ORDERABLES Final Result [address] [address] [place] [address] * HM COLONOSCOPY (07/02/2017) Historical Provider HEALTH MAINTENANCE Final Result from Last 3 Months or Most Recently Relevant to Health Maintenance Insurance [facility] MEDICARE ADVANTAGE [facility] Address: [address] [address] [place] [address] [facility] MEDICARE AD[facility]ANTAGE [facility] Address: [address] [address] [place] [address] Care Teams Manager Cancer Relationship Specialty Start Date End Date Barry Sahu MD [address] [place] [address] PCP - General Family Medicine 09/22/21 Trae Bhagat MD [address] [place] [address] Referring Physician Gastroenterology 09/23/21 Lavell Solis MD [address] [address] Consulting Physician Urology 09/25/21 Jeferson Espinosa MD [address] [place] [address] Referring Physician Vascular Surgery 09/25/21 Berg, Teresa Dental Guard Supervisor 09/25/21
[2024-09-06 22:53] VITALS: BP 145/87; PULSE 72; RESP 16; O2SAT 96
== END 2024-09-06 22:54 | disposition home or self-care (01) ==
PROVIDERS: Physician Assistant; Emergency Provider Emergency Medicine; PCP Family Medicine
DX: S80.212A Abrasion, left knee, initial encounter (principal); S69.92XA Unspecified injury of left wrist, hand and finger(s), initial encounter; R42 Dizziness and giddiness; F01.50 Vascular dementia, unspecified severity, without behavioral disturbance, psychotic disturbance, mood disturbance, and anxiety; I10 Essential (primary) hypertension; E78.5 Hyperlipidemia, unspecified; E03.9 Hypothyroidism, unspecified; J44.9 Chronic obstructive pulmonary disease, unspecified; N40.0 Benign prostatic hyperplasia without lower urinary tract symptoms; K21.9 Gastro-esophageal reflux disease without esophagitis; F17.210 Nicotine dependence, cigarettes, uncomplicated; Z86.16 Personal history of COVID-19; M17.12 Unilateral primary osteoarthritis, left knee; M19.042 Primary osteoarthritis, left hand; W18.39XA Other fall on same level, initial encounter
CPT/HCPCS: 36415; 71046; 73080; 73140; 73564; 80053; 85025; 93005; 99284

== ENCOUNTER 2024-09-18 07:26 | Outpatient (CLI) | payer MEDICARE, SELFPAY ==
--- NOTE | ~2024-09-18 | MR_ITS ---
EXAMINATION: MR brain/brain stem wo con DATE: 09/18/2024 08:14 INDICATION: Dizziness on standing TECHNIQUE: Magnetic resonance imaging (MRI) of the brain and brainstem was performed without intraven ous contrast. Sequences included sagittal and axial T1-weighted FSE, axial diffusion-weighted FS EPI, axial T2*-weighted GRE, axial T2-weighted FLAIR Propeller, axial T2-weighted Propeller, small field- of-view coronal FIESTA, small cdasa-vb-zizv coronal T1-weighted FSE, and small qisfn-rc-ymft axial T1 -weighted SPGR. Apparent diffusion coefficient (ADC) maps were created. COMPARISON: Head CT dated 08/20/2021 and brain MR dated 08/31/2028 FINDINGS: There are no areas of restricted diffusion to suggest acute infarction. No intracranial hemorrhage or abnormal intracranial mass lesion. There are scattered areas of nonspecific increased T2-weighted si gnal intensity in the cerebral white matter, predominantly involving the deep and periventricular whi te matter. There are no intraparenchymal signal abnormalities seen on the other pulse sequences. The ventricles are symmetric and normal in size. There are no abnormal extra-axial fluid collections. Nor mal seventh/eighth cranial nerve complexes. No cerebellopontine angles masses. No evidence of masto id or middle ear fluid. Again noted is an absent flow void in the right internal carotid artery sugge sting chronic occlusion. Visualized orbits and soft tissues are unremarkable. Prominent mucous retent ion cyst in the right maxillary sinus. Mucosal thickening and mucous filling the right sphenoid sinus which demonstrates thickened sclerotic william on prior CT consistent with chronic sinusitis. IMPRESSION: 1. 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 No acute intracranial process. 2. Mild scattered nonspecific white matter T2 hyperintensity consistent with chronic small vessel isc hemic disease. 3. Sinus disease Reviewed, dictated and finalized at location A. IMPRESSION: 1. 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 No acute intracranial process. 2. Mild scattered nonspecific white matter T2 hyperintensity consistent with ch ronic small vessel ischemic disease. 3. Sinus disease
== END 2024-09-18 07:27 | disposition home or self-care (01) ==
LOC: MICIMG 07:27
PROVIDERS: PCP Family Medicine; Visit Provider Family Medicine
DX: R42 Dizziness and giddiness (principal); R90.82 White matter disease, unspecified
CPT/HCPCS: 70551